=== PATIENT | male | born 1955 | race Caucasian/White ===

== ENCOUNTER 2018-08-20 16:38 | Inpatient (IN) | payer OTHER ==
--- NOTE | 2018-08-20 17:13 | PDOC ---
Rapid Medical Evaluation Chief Complaint: Cold Symptoms Time Seen by Provider: 08/20/18 17:07 Medical Evaluation: Allergies Allergy/AdvReac Type Severity Reaction Status Date / Time azithromycin AdvReac Verified 08/20/18 17:08 08/20/18 17:08 I have performed a brief in-person evaluation of this patient. The patient presents with a chief complaint of: cough with low grade fevers , + chemo and radiation for lung cancer Pertinent physical exam findings: moist cough, some scatterd wheezing I have ordered the following: CXR , cbc, cmp, Influenza test The patient will proceed to the ED for further evaluation. 08/20/18 17:10 08/20/18 17:13 Discharge Disposition - Diagnosis Cough - Referrals Referrals: Mayco Adkins MD [Primary Care Provider] - - Patient Instructions - Post Discharge Activity
[2018-08-20 18:16] LABS: BASO % 0.3 % (0-2.0); HEMATOCRIT 25.3 % (35.4-49); HEMOGLOBIN 8.8 GM/dL (11.7-16.9); LYMPH % 2.6 % (8-40); MCH 31.3 pg (25.7-33.7); MCHC 34.8 g/dl (32.0-35.9); MEAN CELL VOLUME 89.9 fl (80-96); MEAN PLT VOLUME 8.9 fl (7.5-11.1); MONO % 6.4 % (3.8-10.2); NEUT % 90.7 % (42.8-82.8); PLATELET COUNT 99 K/MM3 (134-434); RBC 2.81 M/mm3 (4.00-5.60); WHITE BLOOD COUNT 7.4 K/mm3 (4.0-10.0)
[2018-08-20 18:18] LABS: VENOUS PC02 45.7 mmHg (38-52); VENOUS PH 7.43 (7.32-7.42)
[2018-08-20 18:19] LABS: VENOUS PO2 59.8 mmHg (28-48)
[2018-08-20] MEDS ORDERED: ACETAMINOPHEN 1000 MG/100 ML VIAL (NON FORMULARY) IVPB ONE (18:21)
[2018-08-20] MEDS ORDERED: VANCOMYCIN 1,000 MG in DEXTROSE 5%-WATER - 250 ML IVPB ONE (18:24)
[2018-08-20] MEDS ORDERED: PIPERACILLIN/TAZOB 3.375 GM 3.375 GM in DEXTROSE 5%-WATER - 50 ML IVPB ONE (18:24)
[2018-08-20] MEDS ORDERED: LACTATED RINGERS SOLUTION 1000 ML INFUS.BAG IV ONE (18:29)
[2018-08-20 18:56] LABS: ALBUMIN 3.1 g/dl (3.4-5.0); ALK PHOS 73 U/L (45-117); ANION GAP 9 MMOL/L (8-16); BILIRUBIN,TOTAL 0.4 mg/dL (0.2-1); BLOOD UREA NITROGEN 22 mg/dL (7-18); CALCIUM 8.2 mg/dL (8.5-10.1); CHLORIDE 91 mmol/L (98-107); CO2 28 mmol/L (21-32); GLUCOSE,RANDOM 200 mg/dL (74-106); POTASSIUM 4.9 mmol/L (3.5-5.1); SGOT/AST 25 U/L (15-37); SGPT/ALT 16 U/L (13-61); SODIUM 128 mmol/L (136-145); TOT PROT 6.2 g/dl (6.4-8.2)
[2018-08-20 19:02] LABS: INR 1.21 (0.83-1.09); PROTHROMBIN TIME (PATIENT) 14.3 SEC (9.7-13.0)
[2018-08-20 19:04] LABS: ACTIVATED PTT 28.7 SECONDS (25.2-36.5)
--- NOTE | 2018-08-20 19:08 | PDOC ---
History of Present Illness - General Chief Complaint: Cold Symptoms Stated Complaint: TROUBLE BREATHING Time Seen by Provider: 08/20/18 17:07 History Source: Patient, Spouse Exam Limitations: No Limitations - History of Present Illness Initial Comments: 08/20/18 19:05 Pt is a 63yo M with PMH of kidney ca, lung ca, thyroid ca, mediastinal mass, DM , HTN presenting to ED with complaints of SOB, hemoptysis that started today. Pt says he was coughing up yellow phlegm but is now red clots. He denies chest pain, headaches, syncope, lightheadedness, abdominal pain, n/v/d, blood in stool , urinary symptoms. He endorses weakness. He has been getting radiation daily and chemotherapy for his mediastinal mass every 21 days. He has only received 2 treatments because his platelets were found to be low. PMD: Lucille Onc: Kaelyn ([facility]) PMH: see hpi PSH: kidney resection, valve replacement Social: smoked 1ppd quit 1 year ago Allergies: azithromycin (rash) Past History - Past Medical History Allergies/Adverse Reactions: Allergies Allergy/AdvReac Type Severity Reaction Status Date / Time azithromycin AdvReac Verified 08/20/18 17:08 Home Medications: Ambulatory Orders Lisinopril [Prinivil] 10 mg PO DAILY 04/15/16 Metformin HCl [Glucophage] 1,000 mg PO BID 04/15/16 Multivitamins [Multivit ([facility] Formulary)] 1 tab PO DAILY 04/15/16 Aspirin [Aspirin EC] 81 mg PO DAILY #0 04/18/16 Glipizide [Glipizide ER] 5 mg PO DAILY 06/20/18 Methadone 110 mg PO DAILY 06/20/18 Simvastatin 40 mg PO HS 06/20/18 Albuterol 2.5/Ipratropium 0.5 [Duoneb -] 1 amp NEB Q4H PRN #25 vial 06/25/18 Albuterol Sulfate Inhaler - [Ventolin HFA Inhaler -] 2 puff IH Q4H PRN #1 inh Nebulizer [Compact Compressor Nebulizer] 1 each NR ASDIR PRN #1 kit 06/25/18 Polyethylene Glycol 3350 [Miralax 119 gm Btl -] 17 gm PO BID bottle 06/25/18 Anemia: Yes Asthma: No Cancer: Yes (Lung, kidney, lymph nodes) CVA: Yes (2010) COPD: No DVT: No Dementia: No Diabetes: Yes GI Disorders: No Disorders: No HTN: Yes Hypercholesterolemia: No Liver Disease: No Seizures: No Thyroid Disease: No - Surgical History Abdominal Surgery: No Appendectomy: No Cardiac Surgery: Yes (heart valve replaced) Cholecystectomy: No Lung Surgery: Yes (part of lung removed due to cancer) Orthopedic Surgery: No - Suicide/Smoking/Psychosocial Hx Smoking History: Former smoker Have you smoked in the past 12 months: No Number of Cigarettes Smoked Daily: 20 If you are a former smoker, when did you quit?: 06/19/2018 Information on smoking cessation initiated: No 'Breaking Loose' booklet given: 06/20/18 Hx Alcohol Use: No Drug/Substance Use Hx: 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 No: Chills, Fever HEENTM: No: Recent change in vision Respiratory: Yes: See HPI, Cough, Shortness of Breath, Hemoptysis Cardiac (ROS): Yes: See HPI. No: Chest Pain, Palpitations, Syncope ABD/GI: Yes: Constipated. No: Diarrhea, Nausea, Rectal Bleeding, Vomiting, Tarry Stools : No: Burning, Dysuria Musculoskeletal: No: Back Pain, Joint Pain, Neck Pain Integumentary: No: Symptoms Reported Neurological: No: Headache, Numbness, Tingling *Physical Exam - Vital Signs Last Vital Signs Temp Pulse Resp BP Pulse Ox 102.4 F H 99 H 18 128/74 94 L 08/20/18 17:11 08/20/18 17:11 08/20/18 17:11 08/20/18 17:11 08/20/18 17:11 - Physical Exam General Appearance: Yes: Appropriately Dressed, Thin. No: Apparent Distress HEENT: positive: EOMI, FRANCK, TMs Normal. negative: Pale Conjunctivae, Scleral Icterus (R), Scleral Icterus (L) Neck: positive: Trachea midline, Supple. negative: Lymphadenopathy (R), Lymphadenopathy (L) Respiratory/Chest: positive: Crackles (lower lung bases). negative: Lungs Clear , Accessory Muscle Use Cardiovascular: positive: Regular Rhythm, Regular Rate, S1, S2. negative: Edema , JVD, Murmur Vascular Pulses: Carotid (R): 2+, Carotid (L): 2+, Dorsalis-Pedis (R): 2+, Doralis-Pedis (L): 2+ Gastrointestinal/Abdominal: positive: Normal Bowel Sounds, Soft. negative: Distended, Guarding, Rebound, Tenderness, Mass Musculoskeletal: negative: CVA Tenderness Extremity: positive: Normal Capillary Refill. negative: Pedal Edema, Swelling, Calf Tenderness Integumentary: positive: Normal Color, Dry, Warm. negative: Cyanotic, Erythema , Rash, Swelling Neurologic: positive: herpetologist II-XII NML intact, Fully Oriented, Alert, Normal Mood/ Affect, Normal Response, Motor Strength 5/5 Moderate Sedation - Procedure Monitoring Vital Signs: Procedure Monitoring Vital Signs Temperature 102.4 F H 08/20/18 17:11 Pulse Rate 99 H 08/20/18 17:11 Respiratory Rate 18 08/20/18 17:11 Blood Pressure 128/74 08/20/18 17:11 O2 Sat by Pulse Oximetry (%) 94 L 08/20/18 17:11 ED Treatment Course - LABORATORY CBC & Chemistry Diagram: 08/20/18 18:07 08/20/18 18:07 - ADDITIONAL ORDERS Additional order review: Laboratory Results 08/20/18 08/20/18 08/20/18 18:07 18:07 18:07 PT with INR INR VBG pH POC VBG pCO2 POC VBG pO2 Mixed VBG HCO3 Sodium 128 L Potassium 4.9 Chloride 91 L Carbon Dioxide 28 Anion Gap 9 BUN 22 H Creatinine 1.0 Creat Clearance w eGFR > 60 Random Glucose 200 H Lactic Acid 1.1 Calcium 8.2 L Total Bilirubin 0.4 AST 25 ALT 16 Alkaline Phosphatase 73 Troponin I 0.03 Total Protein 6.2 L Albumin 3.1 L 08/20/18 08/20/18 18:07 18:07 PT with INR 14.30 H INR 1.21 H VBG pH 7.43 H POC VBG pCO2 45.7 POC VBG pO2 59.8 H D Mixed VBG HCO3 30.1 H Sodium Potassium Chloride Carbon Dioxide Anion Gap BUN Creatinine Creat Clearance w eGFR Random Glucose Lactic Acid Calcium Total Bilirubin AST ALT Alkaline Phosphatase Troponin I Total Protein Albumin 08/20/18 18:07 RBC 2.81 L MCV 89.9 MCHC 34.8 RDW 19.0 H MPV 8.9 D Neutrophils % 90.7 H Lymphocytes % 2.6 L D Monocytes % 6.4 Eosinophils % 0.0 Basophils % 0.3 - RADIOLOGY Radiology Studies Ordered: Category Date Time Status CHEST X-RAY PORTABLE* [RAD] Stat Radiology 08/20/18 17:25 Taken Medical Decision Making - Medical Decision Making 08/20/18 23:21 Pt is a 63yo M with PMH of kidney ca, lung ca, thyroid ca, mediastinal mass, DM , HTN presenting to ED with complaints of SOB, hemoptysis that started today. Vitals: borderline tachycardia, fever 102.4, 94% PE: crackles in lower lung alfaro, no masses palpated, no rashes, no erythema , DDx: neutropenic fever, pna, TB, PE, acs, pneumonitis, carditis, CHF, COPD -low suspicion for pe given sypmtoms explained by infectious cause. Ran sepsis workup and started pt on abx (vanc and zosyn). Started pt on fluids and IV Tylenol. EKG: LBBB, no baldomero elevations or depressions CXR: R lower lobe infiltrate Labs: WBC wnl, neutrophil wnl, NA low 128. UA negative Consulted pt oncologist and is ok with pt being admitted here. will resume radiation once pt is discharged. Pt admitted to hospitalist. *DC/Admit/Observation/Transfer Diagnosis at time of Disposition: PNA (pneumonia) Qualifiers: Pneumonia type: due to unspecified organism Laterality: right Lung location: lower lobe of lung Qualified Code(s): J18.1 - Lobar pneumonia, unspecified organism - Discharge Dispostion Condition at time of disposition: Good Decision to Admit order: Yes - Referrals - Patient Instructions - Post Discharge Activity
[2018-08-20] MEDS ORDERED: VANCOMYCIN 1 GRAM (PRE-DOCKED) 1,000 MG/250 ML BAG IVPB ONE (19:24)
[2018-08-20] MEDS ORDERED: PIPERACILLIN/TAZOB 3.375 GM 3.375 GM/50 ML BAG IVPB ONE ×2 (19:24→20:33)
[2018-08-20] MEDS ORDERED: ACETAMINOPHEN INJECTION 100 ML IVPB ONE (19:24)
[2018-08-20] MEDS ORDERED: SODIUM CHLORIDE 1,000 ML IV STA (19:41)
--- NOTE | 2018-08-20 19:50 | PDOC ---
Attending Attestation - HPI HPI: 08/20/18 19:50 The patient is a 63 year old male with a significant PMH of lung ca (on chemo and radiation), diabetes, hypertension, and COPD who presents to the emergency department with difficulty breathing abd associated nonproductive cough. Patient also reports low grade fevers at home. The patient denies any chest pain, leg swelling or recent travel. Denies any chills, nausea, vomiting, diarrhea, constipation or urinary symptoms. He denies any headache or dizziness. Denies leg swelling, no recent travel/ immobilization. PCP: Dr. Key Oncologist Dr. Art [phone] Pabon [phone] - Physicial Exam PE: 08/20/18 19:51 GENERAL: Awake, alert, and fully oriented, in no acute distress, febrile HEAD: No signs of trauma NECK: Normal ROM, supple. LUNGS: crackles on the right base. HEART: (+) Tachycardic. Regular rhythm, normal S1 and S2, no murmurs, rubs or gallops ABDOMEN: Soft, nontender, normoactive bowel sounds. No guarding, no rebound. No masses EXTREMITIES: Normal range of motion, no edema. No clubbing or cyanosis. No cords, erythema, or tenderness NEUROLOGICAL: Cranial nerves II through XII grossly intact. Ambulatory. <Zaria Marmolejo - Last Filed: 08/20/18 19:50> - Resident Resident Name: Keke Saucedo - ED Attending Attestation I have performed the following: I have examined & evaluated the patient, The case was reviewed & discussed with the resident, I agree w/resident's findings & plan, Exceptions are as noted - Medical Decision Making 08/20/18 20:58 pt presented with 102.4 oral temperature and sepsis work up initiated pt has PMH lung ,renal ,thyroid and cancer of lymph nodes -currently receiving radiation tx to chest . In Nov his platelet count was too low so he skipped his chemotherapy -his education dean and radiation therapy are at [facility] -he is febrile but NOT neutropenic -cxr reveals a rt sided infiltrate so antibiotics were given and pt admitted for further IV antibiotics and supplemental o2 if needed pt admitted to med/surg 08/20/18 21:03 <Brionna York - Last Filed: 08/20/18 21:04>
--- NOTE | 2018-08-20 19:59 | PN ---
Teaching Attending Note Name of Resident: Eron Capps ATTENDING PHYSICIAN STATEMENT I saw and evaluated the patient. I reviewed the resident's note and discussed the case with the resident. I agree with the resident's findings and plan as documented. SUBJECTIVE: Patient is a 63 year old man with PMH of kidney cancer (?s/p nephrectomy), lung cancer (?s/p lobectomy), thyroid cancer, systolic CHF, severe , opioid dependence, mediastinal mass, NIDDM, HTN and TAVR presenting to ER with complaints of SOB, hemoptysis that started today. Says he was coughing up yellow phlegm but is now red clots. He denies chest pain, headaches, syncope, lightheadedness, abdominal pain, n/v/d, blood in stool or urinary symptoms. He has weakness. He has been getting radiation daily and chemotherapy for his mediastinal mass every 21 days. He has only received 2 treatments because his platelets were found to be low. OBJECTIVE: Alert Vital Signs Period Temp Pulse Resp BP Sys/Nicholas Pulse Ox Last 24 Hr 102.4 F 99 18 128/74 94 HEENT: No Jaundice, eye redness or discharge, PERRLA, EOMI. Normocephalic, atraumatic. External ears are normal and hearing is grossly intact. No nasal discharge. Neck: Supple, nontender. No palpable adenopathy or thyromegaly. No JVD Chest: Good effort. Right basilar crackles. Clear to percussion. Heart: Regular. No S3 or rub; 2/6 KELLIE Abdomen: Not distended, soft, nontender and no HSM. No rebound or guarding. Normoactive bowel sounds. Ext: Peripheral pulses intact. No leg edema. Skin: Warm and dry. No petechiae, rash or ecchymosis. Neuro: Alert. Oriented x3. CN 2-12 grossly intact. Sensation grossly intact in all four extremities and DTR are symmetric. Current Medications Generic Name Dose Route Start Last Admin Trade Name Freq PRN Reason Stop Dose Admin Sodium Chloride 1,000 mls @ 1,000 mls/hr 08/20/18 19:41 Normal Saline - IV 08/20/18 20:40 ASDIR STA Home Medications Medication Instructions Recorded Lisinopril [Prinivil] 10 mg PO DAILY 04/15/16 Metformin HCl [Glucophage] 1,000 mg PO BID 04/15/16 Multivitamins [Multivit ([facility] 1 tab PO DAILY 04/15/16 Formulary)] Aspirin [Aspirin EC] 81 mg PO DAILY #0 04/18/16 Glipizide [Glipizide ER] 5 mg PO DAILY 06/20/18 Methadone 110 mg PO DAILY 06/20/18 Simvastatin 40 mg PO HS 06/20/18 Sitagliptin Phosphate [Januvia] 50 mg PO DAILY 06/20/18 Albuterol 2.5/Ipratropium 0.5 1 amp NEB Q4H PRN #25 vial 06/25/18 [Duoneb -] Albuterol Sulfate Inhaler - 2 puff IH Q4H PRN #1 inh 06/25/18 [Ventolin HFA Inhaler -] Nebulizer [Compact Compressor 1 each NR ASDIR PRN #1 kit 06/25/18 Nebulizer] Nystatin Oral Suspension - 5 ml PO QID #400 ml 06/25/18 [Nystatin Oral Susp 031766 Units/5 ML -] Polyethylene Glycol 3350 [Miralax 17 gm PO BID bottle 06/25/18 119 gm Btl -] Prednisone 10 mg PO ASDIR #16 tablet 06/25/18 Abnormal Lab Results 08/20/18 08/20/18 08/20/18 18:07 18:07 18:07 RBC 2.81 L Hgb 8.8 L Hct 25.3 L D RDW 19.0 H Plt Count 99 L D Neutrophils % 90.7 H Lymphocytes % 2.6 L D PT with INR 14.30 H INR 1.21 H VBG pH 7.43 H POC VBG pO2 59.8 H D Mixed VBG HCO3 30.1 H Sodium Chloride BUN Random Glucose Calcium Total Protein Albumin 08/20/18 18:07 RBC Hgb Hct RDW Plt Count Neutrophils % Lymphocytes % PT with INR INR VBG pH POC VBG pO2 Mixed VBG HCO3 Sodium 128 L Chloride 91 L BUN 22 H Random Glucose 200 H Calcium 8.2 L Total Protein 6.2 L Albumin 3.1 L ASSESSMENT AND PLAN: 1. Sepsis due to Pneumonia - CXR shows RLL infiltrate. Flu swab is negative. Will check urine legionella antigen. Has HCAP and will be treated with IV vancomycin, cefepime, doxycycline and solumedrol. Already got 1 liter LR and will avoid excessive IV fluids in view of history of poor LV function. Hyponatremia likely due SIADH from lung disease and hyperglycemia. Will restrict free water intake, correct hyperglycemia and monitor BMP. 2. Hypoalbuminemia - Possibly due to combined effects of malnutrition and inflammation associated with comorbid chronic conditions. Will ensure adequate dietary protein intake and also consult aircraft maintenance technician. 3. DM - Will hold the home diabetes drugs and implement sliding scale insulin regimen. Provide comprehensive diabetes care with patient teaching and counseling about the importance of euglycemia, eye care and foot care. 4. Anemia and Thrombocytopenia - Both likely due to effects of cancer and/or cancer therapy. Will do basic anemia work up including serial stool guaiacs, reticulocyte count and iron studies. Monitor platelet count. 5. DVT prophylaxis - Lovenox 40 mg SQ q 24 hours. 6. Advance directives - Full code
[2018-08-20 20:54] LABS: URINE APPEARANCE CLEAR; URINE BILIRUBIN NEGATIVE (<2.0 mg/dL); URINE COLOR YELLOW; URINE GLUCOSE (UA) NEGATIVE (NEGATIVE); URINE KETONE NEGATIVE (NEGATIVE); URINE LEUK ESTERASE NEGATIVE (NEGATIVE); URINE NITRITE NEGATIVE (NEGATIVE); URINE PROTEIN 1+ (NEGATIVE); URINE UROBILINOGEN 4.0 E.U/dl mg/dL (0.2-1.0)
[2018-08-20 21:11] LABS: EPI CELLS RARE /HPF (FEW)
--- NOTE | 2018-08-20 21:51 | HP ---
CHIEF COMPLAINT: SOB, cough with blood tinged sputum PCP: Lucille Onc: Kaelyn ([facility]) HISTORY OF PRESENT ILLNESS: 63 yo male with PMH Kidney CA, Lung CA, Thyroid CA, Recent Mediastinal mass ( Daily radiation therapy 7 weeks and Chemo Q21 days), NIDDM, HTN, HLD, CVA (2010) , Severe Aortic Stenosis, admitted with complaint of fevers, chills, SOB, and cough productive of yellow and blood tinged sputum. He states he has been having symptoms for 2 days. He was able to complete radiation today but states he noted the sputum with blood following and wanted to come for evaluation. Of note he was admitted 2 months ago for pneumonia with similar symptoms. Of note, he states that his most recent chemo dose was due on the (5 days ago) but was not given due to low platelet count. ER course was notable for: (1) CXR noted RLL infiltrate (2) Vanc/Zosyn (3) HypoNatremia 128 Recent Travel: none PAST MEDICAL HISTORY: Kidney CA, Lung CA, Thyroid CA, Recent Mediastinal mass (Daily radiation therapy 7 weeks and Chemo Q21 days), NIDDM, HTN, HLD, CVA (2010), Severe Aortic Stenosis PAST SURGICAL HISTORY: Left Kidney resection Partial lung resection Cardiac Valve replacement Social History: Smoking: Former smoker, ppd for 45 yrs Alcohol: Denies Drugs: Denies Family History: Allergies azithromycin Adverse Reaction (Verified 08/20/18 17:08) HOME MEDICATIONS: Home Medications Medication Instructions Recorded Lisinopril [Prinivil] 10 mg PO DAILY 04/15/16 Metformin HCl [Glucophage] 1,000 mg PO BID 04/15/16 Multivitamins [Multivit ([facility] 1 tab PO DAILY 04/15/16 Formulary)] Aspirin [Aspirin EC] 81 mg PO DAILY #0 04/18/16 Glipizide [Glipizide ER] 5 mg PO DAILY 06/20/18 Methadone 110 mg PO DAILY 06/20/18 Simvastatin 40 mg PO HS 06/20/18 Sitagliptin Phosphate [Januvia] 50 mg PO DAILY 06/20/18 Albuterol 2.5/Ipratropium 0.5 1 amp NEB Q4H PRN #25 vial 06/25/18 [Duoneb -] Albuterol Sulfate Inhaler - 2 puff IH Q4H PRN #1 inh 06/25/18 [Ventolin HFA Inhaler -] Nebulizer [Compact Compressor 1 each NR ASDIR PRN #1 kit 06/25/18 Nebulizer] Nystatin Oral Suspension - 5 ml PO QID #400 ml 06/25/18 [Nystatin Oral Susp 393038 Units/5 ML -] Polyethylene Glycol 3350 [Miralax 17 gm PO BID bottle 06/25/18 119 gm Btl -] Prednisone 10 mg PO ASDIR #16 tablet 06/25/18 REVIEW OF SYSTEMS CONSTITUTIONAL: fever, chills, diaphoresis, generalized weakness, Absent: malaise, loss of appetite, weight change HEENT: Absent: rhinorrhea, nasal congestion, throat pain, throat swelling, difficulty swallowing, mouth swelling, ear pain, eye pain, visual changes CARDIOVASCULAR: Absent: chest pain, syncope, palpitations, irregular heart rate, lightheadedness , peripheral edema RESPIRATORY: cough, shortness of breath Absent: , dyspnea with exertion, orthopnea, wheezing, stridor, hemoptysis GASTROINTESTINAL: Absent: abdominal pain, abdominal distension, nausea, vomiting, diarrhea, constipation, melena, hematochezia GENITOURINARY: Absent: dysuria, frequency, urgency, hesitancy, hematuria, flank pain, genital pain MUSCULOSKELETAL: Absent: myalgia, arthralgia, joint swelling, back pain, neck pain SKIN: Absent: rash, itching, pallor HEMATOLOGIC/IMMUNOLOGIC: Absent: easy bleeding, easy bruising, lymphadenopathy, frequent infections ENDOCRINE: Absent: unexplained weight gain, unexplained weight loss, heat intolerance, cold intolerance NEUROLOGIC: Absent: headache, focal weakness or paresthesias, dizziness, unsteady gait, seizure, mental status changes, bladder or bowel incontinence PSYCHIATRIC: Absent: anxiety, depression, suicidal or homicidal ideation, hallucinations. PHYSICAL EXAMINATION Vital Signs - 24 hr 08/20/18 17:11 Temperature 102.4 F H Pulse Rate 99 H Respiratory 18 Rate Blood Pressure 128/74 O2 Sat by Pulse 94 L Oximetry (%) GENERAL: A&O, no acute distress, diaphoretic male HEAD: Normocephalic, atraumatic. EYES: PERRL, no scleral icterus EARS, NOSE, THROAT: oropharynx clear without exudates. Moist mucous membranes. NECK: supple without lymphadenopathy LUNGS: Course breath sounds in the right base HEART: Regular rate and rhythm, Systolic blowing murmur at right sternal border ABDOMEN: Soft, nontender to palpation, normoactive bowel sounds MUSCULOSKELETAL: No bony deformities or tenderness. EXTREMITIES: 2+ pulses, warm, well-perfused. No peripheral edema. NEUROLOGICAL: Cranial nerves II-XII grossly intact. Normal speech. PSYCHIATRIC: Cooperative. Good eye contact. Appropriate mood and affect. SKIN: Warm, dry, no rashes or lesions noted Laboratory Results - last 24 hr 08/20/18 08/20/18 08/20/18 17:15 18:07 18:07 WBC 7.4 RBC 2.81 L Hgb 8.8 L Hct 25.3 L D MCV 89.9 MCH 31.3 D MCHC 34.8 RDW 19.0 H Plt Count 99 L D MPV 8.9 D Absolute Neuts (auto) 6.7 Neutrophils % 90.7 H Lymphocytes % 2.6 L D Monocytes % 6.4 Eosinophils % 0.0 Basophils % 0.3 Nucleated RBC % 0 PT with INR 14.30 H INR 1.21 H PTT (Actin FS) 28.7 VBG pH POC VBG pCO2 POC VBG pO2 Mixed VBG HCO3 Sodium Potassium Chloride Carbon Dioxide Anion Gap BUN Creatinine Creat Clearance w eGFR Random Glucose Lactic Acid Calcium Total Bilirubin AST ALT Alkaline Phosphatase Troponin I Total Protein Albumin Urine Color Urine Appearance Urine pH Ur Specific [place] Urine Protein Urine Glucose (UA) Urine Ketones Urine Blood Urine Nitrite Urine Bilirubin Urine Urobilinogen Ur Leukocyte Esterase Urine WBC (Auto) Urine RBC (Auto) Ur Epithelial Cells Influenza A (Rapid) Negative Influenza B (Rapid) Negative 08/20/18 08/20/18 08/20/18 18:07 18:07 18:07 WBC RBC Hgb Hct MCV MCH MCHC RDW Plt Count MPV Absolute Neuts (auto) Neutrophils % Lymphocytes % Monocytes % Eosinophils % Basophils % Nucleated RBC % PT with INR INR PTT (Actin FS) VBG pH 7.43 H POC VBG pCO2 45.7 POC VBG pO2 59.8 H D Mixed VBG HCO3 30.1 H Sodium 128 L Potassium 4.9 Chloride 91 L Carbon Dioxide 28 Anion Gap 9 BUN 22 H Creatinine 1.0 Creat Clearance w eGFR > 60 Random Glucose 200 H Lactic Acid 1.1 Calcium 8.2 L Total Bilirubin 0.4 AST 25 ALT 16 Alkaline Phosphatase 73 Troponin I Total Protein 6.2 L Albumin 3.1 L Urine Color Urine Appearance Urine pH Ur Specific [place] Urine Protein Urine Glucose (UA) Urine Ketones Urine Blood Urine Nitrite Urine Bilirubin Urine Urobilinogen Ur Leukocyte Esterase Urine WBC (Auto) Urine RBC (Auto) Ur Epithelial Cells Influenza A (Rapid) Influenza B (Rapid) 08/20/18 08/20/18 18:07 20:39 WBC RBC Hgb Hct MCV MCH MCHC RDW Plt Count MPV Absolute Neuts (auto) Neutrophils % Lymphocytes % Monocytes % Eosinophils % Basophils % Nucleated RBC % PT with INR INR PTT (Actin FS) VBG pH POC VBG pCO2 POC VBG pO2 Mixed VBG HCO3 Sodium Potassium Chloride Carbon Dioxide Anion Gap BUN Creatinine Creat Clearance w eGFR Random Glucose Lactic Acid Calcium Total Bilirubin AST ALT Alkaline Phosphatase Troponin I 0.03 Total Protein Albumin Urine Color Yellow Urine Appearance Clear Urine pH 6.0 Ur Specific [place] 1.013 Urine Protein 1+ H Urine Glucose (UA) Negative Urine Ketones Negative Urine Blood Negative Urine Nitrite Negative Urine Bilirubin Negative Urine Urobilinogen 4.0 e.u/dl Ur Leukocyte Esterase Negative Urine WBC (Auto) 1 Urine RBC (Auto) None Ur Epithelial Cells Rare Influenza A (Rapid) Influenza B (Rapid) ASSESSMENT/PLAN: 63 yo male with PMH Kidney CA, Lung CA, Thyroid CA, Recent Mediastinal mass ( Daily radiation therapy 7 weeks and Chemo Q21 days), NIDDM, HTN, HLD, CVA (2010) , Severe Aortic Stenosis, admitted with complaint of fevers, chills, SOB, and cough productive of yellow and blood tinged sputum. Sepsis secondary to RLL pneumonia likely HCAP -Pt with IV abx in the hospital within last 3 months -Immunocompromised also due to Cancer and Chemotherapy tx -Will cover for HCAP in addition to atypicals, azythromycin allergy noted ( flushing on last administration) -ID consult ordered -Vanc 1250 mg IV BID, Cefepime 2 gm IV Q8, Doxy 100 mg IV BID -Minimal fluids with hyponatremia and recent echo noted (LV mildly dilated with fxn reduced, severe ) HypoNatremia -Likely secondary to decreased PO intake over the last few days -Limit free water intake -Pt given fluids in ED -Repeat CMP pending -Do not increase more than 8 in 24 hours Anemia -Possibly secondary to chemo use, has not had formal workup here -H/H down 2 from previous discharge 2 months ago -Repeat CBC in AM -Iron Studies -Stool occult pending NIDDM -Hold oral glycemic control -BGMs ACHS -Insulin Sliding scale ACHS HTN -Continue home Lisinopril 10 mg PO Daily HLD -resume home statin or pharmacy equivalent DVT Prophylaxis -Lovenox 40 mg SQ Daily FEN -Fluids: NS @ 50 cc/hr X 1 bag -Electrolytes: HypoNatremia as above, monitor and replete appropriately, BMP in AM -Nutrition: Diabetic Na controlled diet Disposition Med/Surg Visit type - Emergency Visit Emergency Visit: Yes ED Registration Date: 08/20/18 Care time: The patient presented to the Emergency Department on the above date and was hospitalized for further evaluation of their emergent condition. - New Patient This patient is new to me today: Yes Date on this admission: 08/21/18 - Critical Care Critical Care patient: No
[2018-08-20] MEDS ORDERED: methylPREDNISolone NA SUCC 40 MG/1 ML VIAL ONE (22:03)
[2018-08-20] MEDS ORDERED: DOXYCYCLINE HYCLATE 100 MG VIAL ONE (22:03)
[2018-08-20] MEDS: SODIUM CHLORIDE 1,000 ML IV SCH (22:15)
[2018-08-20] MEDS: methylPREDNISolone NA SUCC 40 MG/1 ML VIAL IVPUSH SCH (22:20)
[2018-08-20] MEDS ORDERED: ALBUTEROL SO4 8 GM HFA INHALER IH PRN (22:22)
[2018-08-20] MEDS ORDERED: ALBUTEROL SO4 2.5/IPRATROPIUM 0.5 INH SOL 3 ML VIAL.NEB. NEB PRN (22:22)
[2018-08-20] MEDS ORDERED: POLYETHYLENE GLYCOL 3350 119 GM BTL PO PRN (22:22)
[2018-08-20] MEDS ORDERED: INSULIN (NOVOLOG) ASPART 100 UNITS/ML 10ML VIAL ONE (22:31)
[2018-08-20] MEDS: DOXYCYCLINE INJECTION 100 MG in DEXTROSE 5%-WATER 100 ML IVPB SCH (22:35)
[2018-08-20] MEDS: INSULIN SLIDING SCALE (NOVOLOG) 1 VIAL SQ SCH (22:35)
[2018-08-21] MEDS ORDERED: QUEtiapine FUMARATE 25 MG TABLET (FP) PO ONE (00:52)
[2018-08-21] MEDS ORDERED: CEFEPIME 2 GM/100 ML BAG IVPB ONE (01:36)
[2018-08-21] MEDS ORDERED: QUEtiapine FUMARATE 25 MG TABLET (FP) ONE (01:40)
[2018-08-21] MEDS: CEFEPIME 2 GM in DEXTROSE 5%-WATER 100 ML IVPB SCH ×2 (02:30→10:41)
[2018-08-21 06:25] LABS: BASO % 0.2 % (0-2.0); HEMOGLOBIN 7.7 GM/dL (11.7-16.9); LYMPH % 2.9 % (8-40); MCH 29.5 pg (25.7-33.7); MEAN CELL VOLUME 92.2 fl (80-96); MEAN PLT VOLUME 7.7 fl (7.5-11.1); MONO % 3.3 % (3.8-10.2); NEUT % 93.6 % (42.8-82.8); PLATELET COUNT 70 K/MM3 (134-434); RDW 18.2 % (11.9-15.9)
[2018-08-21 07:25] LABS: ANION GAP 7 MMOL/L (8-16); BLOOD UREA NITROGEN 23 mg/dL (7-18); CHLORIDE 97 mmol/L (98-107); CO2 30 mmol/L (21-32); CREATININE 0.9 mg/dL (0.55-1.3); GLUCOSE,RANDOM 166 mg/dL (74-106); MAGNESIUM 2.2 mg/dL (1.8-2.4); PHOSPHOROUS 3.1 mg/dL (2.5-4.9); POTASSIUM 4.9 mmol/L (3.5-5.1); SODIUM 134 mmol/L (136-145)
[2018-08-21] MEDS ORDERED: VANCOMYCIN 1,250 MG in DEXTROSE 5%-WATER - 250 ML IVPB SCH ×2 (09:00→21:00)
[2018-08-21] MEDS ORDERED: ENOXAPARIN NA (PORCINE) 40 MG/0.4 ML DISP.SYRIN SQ SCH (10:00)
[2018-08-21] MEDS ORDERED: LISINOPRIL 10 MG TABLET (FP) PO SCH (10:00)
[2018-08-21] MEDS ORDERED: ASPIRIN COATED 81 MG TABLET.EC PO SCH (10:00)
--- NOTE | 2018-08-21 10:24 | PN ---
Progress Note (short form) - Note Progress Note: ID Consult dictated RLL pneumonia R/O HCAP Lung ca s/p chemo/ RT ? cavitary RUL lesion Await c/s Empiric cefepime/ vancomycin
[2018-08-21] MEDS ORDERED: PNEUMOC 13-VAL CONJ-DIP CRM/PF 0.5 ML DISP.SYRIN IM ONE (10:30)
[2018-08-21] MEDS ORDERED: PT OWN MED DRAWER 7, Y5N ONE ×2 (10:36→17:36)
[2018-08-21] MEDS: methylPREDNISolone NA SUCC 40 MG/1 ML VIAL IVPUSH SCH (10:39)
[2018-08-21] MEDS: MULTIVITAMINS (DAILY MVI) TABLET (FP) PO SCH (10:40)
[2018-08-21] MEDS: METHADONE HCL 40 MG DISPERSABLE TABLET PO SCH (10:40)
[2018-08-21] MEDS: INSULIN SLIDING SCALE (NOVOLOG) 1 VIAL SQ SCH ×3 (10:41→17:26)
[2018-08-21 10:55] LABS: RETICULOCYTES 1.72 % (0.5-1.5)
--- NOTE | 2018-08-21 10:56 | CONS ---
DATE OF CONSULTATION: DATE OF DICTATION: 08/21/2017 The patient is a 63-year-old male with a history of lung cancer status post chemotherapy and radiation, evaluated for pneumonia. He presents to the hospital with a several-day history of worsening shortness of breath, cough productive of brownish sputum, blood-streaked sputum, fever, and chills. Patient does not give a reliable history. He presented to the emergency room where he was noted to have fever 102.4. Chest x-ray showed a right lower lobe infiltrate. He was empirically treated with vancomycin and Zosyn. Patient denies any chest pain. He does not appear to be short of breath at rest. He has a history of lung cancer; however, he was vague with respect to the time of his diagnosis. He is followed at [facility]. He apparently had undergone lung surgery, possible lobectomy. He has also received 2 cycles of chemotherapy, the last one of which was on July 25, 2018. He also received radiation therapy. Patient reports that his third session of chemotherapy was postponed due to thrombocytopenia. He lives at home. He states his granddaughter had a respiratory tract illness. He lives with his , who is well. He is a former smoker. No recent trivial. No significant pet exposure. He did receive influenza vaccine and pneumococcal vaccine. On admission, he was noted to be leukopenic; however, he is not neutropenic. PAST MEDICAL HISTORY: Positive for lung cancer status post surgery, chemotherapy, and radiation. History of renal cancer, throat cancer, diabetes mellitus, hypertension, congestive heart failure. PAST SURGICAL HISTORY: Status post TAVR and lung surgery. ALLERGIES: ZITHROMAX. Patient gives a vague sensation of feeling warm when he get Zithromax. According to the notes, he developed a rash. MEDICATIONS: Lisinopril, Glucophage, aspirin, glipizide, methadone, simvastatin. SOCIAL HISTORY: He lives at home with his significant other. He is a former smoker. Denies risk factors for HIV and declines testing. REVIEW OF SYSTEMS: Neurologic: No loss of consciousness, seizure activity, focal weakness. Cardiac: Negative chest pain or palpitations. Respiratory: As per HPI. Gastrointestinal: Negative vomiting or diarrhea. Genitourinary: Negative for urinary tract infection. LABORATORY DATA: White count 4.0, 93 neutrophils. Absolute neutrophil count 3.7, hematocrit 24.0, platelets 70,000. BUN 23, creatinine 0.9. Urinalysis: One white cell. Influenza swab negative. Blood and urine cultures are pending. Chest x-ray shows a right lower lobe infiltrate. CAT scan which was done on August 07, 2018, shows a small cavitary lesion in the right upper lobe. PHYSICAL EXAMINATION: General: On exam, he is awake and alert. He is ambulatory. He is not acutely toxic appearing, in no acute distress. He is not acutely short of breath at rest. Vital Signs: Temperature 98, T-max 102.4. Blood pressure 125/52, pulse 81, regular. Respirations 18 per minute. HEENT: Sclerae are anicteric. Cardiovascular: Heart sounds S1, S2. No murmur. Lungs: Clear. Abdomen: Soft, obese, nontender. Extremities: Negative for edema, negative Homans sign. IMPRESSION: 1. Right lower lobe pneumonia, rule out healthcare-acquired pneumonia. 2. Lung cancer status post chemotherapy and radiation. 3. Fever, rule out non-neutropenic sepsis. 4. Possible cavitary lung lesion, right upper lobe. Await cultures, empiric antibiotic coverage with cefepime and vancomycin. Would repeat CAT scan in light of new infiltrate on chest x-ray and follow up of possible right upper lobe cavitary lesion in the setting of hemoptysis. Will follow. Thank you for the kind referral. SANCHEZ GIBBS M.D. [id number]
[2018-08-21 11:50] LABS: ANISOCYTOSIS 1+; MACROCYTOSIS 1+; OVALOCYTE 1+; PLATELET ESTIMATE DECREASED
[2018-08-21] MEDS ORDERED: CEFEPIME HCL 1 GM VIAL (RESTRICTED TO ID) ONE ×2 (11:50→17:36)
[2018-08-21] MEDS ORDERED: DEXTROSE 5%-WATER 100 ML IVPB ONE ×2 (11:50→17:36)
[2018-08-21] MEDS: VANCOMYCIN 1 GRAM (PRE-DOCKED) 1,000 MG/250 ML BAG IVPB SCH ×2 (11:57→22:13)
[2018-08-21] MEDS: CEFEPIME 1 GM in DEXTROSE 5%-WATER 100 ML IVPB SCH ×2 (11:58→17:53)
[2018-08-21 12:15] VITALS: BMI 29.7
--- NOTE | 2018-08-21 12:43 | PN ---
Teaching Attending Note Name of Resident: Cayden Ross ATTENDING PHYSICIAN STATEMENT I saw and evaluated the patient. I reviewed the resident's note and discussed the case with the resident. I agree with the resident's findings and plan as documented. SUBJECTIVE: he feels better. NO cp at this point. cough and sputum production improved. no abd pain, no diarrhea. was supposed to get chemo 5 days ago and was canceled due to thrombocytopenia . had hemoptysis last night, did not recur. OBJECTIVE: NAD HEENT: dry MM. no facial droop. EOMI. No JVD CV: RRR, 3/s SM at LUSB and RUSB with radiation to carotids Lungs; R base fine crackles Abd: soft, NT, ND , NL Bs Ext : no edema or erythema . no axillary sweating ASSESSMENT AND PLAN: 63 y/o gentleman with h/o Lung cancer s/p R lobecotmy, Lthyroid cancer, and renal cancer s/p L nephrectomy, DM, h/o opioid use on methadone, severe , s/p TVAR, Systolic CHF, Mediastinal mass, currently on chemo and radiation , who presented with fever, cough , and was found ot have RLL PNA 1- RLL PNA: - cxray this admission and CT form last admission reviewed. infiltrate is new. scarring/cavitation in RUL on last CT. - d/w ID - cont cefepime and vanco, and doxy - follow legionella Ag and check mycoplasma Abs - follow blood cx - check sputum cx - IVF - CT of chest 2- Volume depletion: BUN/Cr, no axillary sweating, hyponatremia,fever and decreased po intake. - IVF 3- H/o systolic heart failure: last echo 07/05 reviewed. mildly reduced EF. severe - avoid hypovolemia. - monitor carefully with IVF 4- CP: resolved. not sure of etiology. EKG with L axis , incomplete LBBB, 1st degree AV block . trop nl x 1. no suspicion for ACS. 5- normocytic anemia: likely de to chemo. - follow iron studies and folic/B12 - obtain last HB form PCP office - hemoptysis last night was not significant ( , 1 tea spoon ) . could be due to PNA 6- Thrombocytopenia ; due to chemo. monitor 7- DM : SSI . hold po meds 8- hold DVT PX for now. SCDs dispo : [facility]LOC
--- NOTE | 2018-08-21 13:37 | PN ---
Physical Exam: SUBJECTIVE: Patient is a 63 y/o male with a history of kidney ca, lung ca, thyroid ca, DM, HTN, HLD, CA, and severe aortic stenosis who is admitted for pneumonia. Patient reports he feels like hes coughing up clots. He feels a little bit short of breath but reports he feels better from last night. OBJECTIVE: Vital Signs Temperature 98.0 F 08/21/18 12:02 Pulse Rate 66 08/21/18 12:02 Respiratory Rate 18 08/21/18 12:02 Blood Pressure 128/67 08/21/18 12:02 O2 Sat by Pulse Oximetry (%) 97 08/21/18 07:50 GENERAL: The patient is awake, alert, and fully oriented, in no acute distress. HEAD: Normal with no signs of trauma. EYES: PERRL, extraocular movements intact ENT: moist mucous membranes. NECK: Trachea midline, full range of motion, supple. LUNGS: fine crackles a RLL, coarse breath sounds HEART: Regular rate and rhythm, S1, S2 without murmur, rub or gallop. ABDOMEN: Soft, nontender, nondistended, normoactive bowel sounds EXTREMITIES: 2+ pulses, warm, well-perfused, no edema. NEUROLOGICAL: Cranial nerves II through XII grossly intact. Normal speech gait normal PSYCH: Normal mood, normal affect. SKIN: Warm, dry, normal turgor, no rashes or lesions noted CBC, BMP 08/21/18 05:20 08/21/18 05:20 Active Medications Albuterol Sulfate (Ventolin Hfa Inhaler -) 2 puff IH Q4H PRN PRN Reason: SHORT OF BREATH/WHEEZING Albuterol/Ipratropium (Duoneb -) 1 amp NEB Q4H PRN PRN Reason: SHORT OF BREATH/WHEEZING Atorvastatin Calcium (Lipitor -) 20 mg PO HS KIRA Sodium Chloride (Normal Saline -) 1,000 mls @ 50 mls/hr IV ASDIR KIRA Stop: 08/21/18 21:28 Last Admin: 08/20/18 22:15 Dose: 50 mls/hr Doxycycline Hyclate 100 mg/ (Dextrose) 100 mls @ 100 mls/hr IVPB BID KIRA Last Admin: 08/20/18 22:35 Dose: 100 mls/hr Cefepime HCl 1 gm/ Dextrose 100 mls @ 100 mls/hr IVPB Q8H-IV KIRA; Protocol Last Admin: 08/21/18 11:58 Dose: 100 mls/hr Vancomycin HCl (Vancomycin (Pre-Docked)) 1,000 mg in 250 mls @ 166.667 mls/hr IVPB BID@1100,2300 [facility]; Protocol Last Admin: 08/21/18 11:57 Dose: 166.667 mls/hr Insulin Aspart (Novolog Vial Sliding Scale -) 1 vial SQ TIDAC [facility]; Protocol Last Admin: 08/21/18 12:18 Dose: 4 units Methadone HCl (Dolophine -) 120 mg PO DAILY@0600 [facility] Last Admin: 08/21/18 10:40 Dose: 120 mg Methylprednisolone Sodium Succinate (Solu-Medrol -) 40 mg IVPUSH DAILY [facility] Last Admin: 08/21/18 10:39 Dose: 40 mg Multivitamins/Minerals/Vitamin C (Tab-A-Vit -) 1 tab PO DAILY [facility] Last Admin: 08/21/18 10:40 Dose: 1 tab Polyethylene Glycol (Miralax (For Daily Use) -) 17 gm PO Q12H PRN PRN Reason: CONSTIPATION Quetiapine Fumarate (Seroquel -) 50 mg PO HS [facility] ASSESSMENT/PLAN: Patient is a 63 y/o male with a history of kidney ca, lung ca, thyroid ca, DM, HTN, HLD, CA, and severe aortic stenosis who is admitted for pneumonia. #Pneumonia with hemoptysis - CXR: shows RLL infiltrate - f/u Chest CT - Continue Vancomycin, Cefepime, and Doxycycline - f/u urine antigens and mycoplasma, f.u blood cx and sputum cx - hold aspirin and lovenxo - pertinent PNA of positive sputum CX klebsiella 3 months ago - influenza negative #hyponatremia - resolved 134, continue NS @ 100 - f/u Na at 2 #anemia - could be 2/2 to chemo, chronic anemia - hgb :7.7, on DC 3 months ago was 11.3 #DM - BGM's ACHs - SS #1st degree AV block - asymtpomatic - no treatment for now - Echo06/21/18 hx: severe aortic stenosis, LV mildly dilated, LV fxn mildly reduced #drug addiction - methadone 120 mg a day, confirmed with [facility] #HTN - hold lisinopril #HLD - hold statins #DVT - hold lovenox - SCD's for now Visit type - Emergency Visit Emergency Visit: No - New Patient This patient is new to me today: Yes Date on this admission: 08/21/18 - Critical Care Critical Care patient: No
[2018-08-21] MEDS ORDERED: SODIUM CHLORIDE 1,000 ML IV SCH (15:14)
[2018-08-21 16:11] LABS: HEMATOCRIT 23.3 % (35.4-49); HEMOGLOBIN 8.1 GM/dL (11.7-16.9); MCH 31.7 pg (25.7-33.7); MCHC 34.8 g/dl (32.0-35.9); MEAN CELL VOLUME 91.1 fl (80-96); MEAN PLT VOLUME 8.1 fl (7.5-11.1); PLATELET COUNT 78 K/MM3 (134-434); RBC 2.55 M/mm3 (4.00-5.60); RDW 19.1 % (11.9-15.9); WHITE BLOOD COUNT 3.6 K/mm3 (4.0-10.0)
[2018-08-21 16:32] LABS: ANION GAP 6 MMOL/L (8-16); BLOOD UREA NITROGEN 25 mg/dL (7-18); CALCIUM 8.1 mg/dL (8.5-10.1); CHLORIDE 96 mmol/L (98-107); CO2 30 mmol/L (21-32); GLUCOSE,RANDOM 296 mg/dL (74-106); POTASSIUM 5.2 mmol/L (3.5-5.1); SODIUM 133 mmol/L (136-145)
--- NOTE | 2018-08-21 17:02 | EKG ---
Test Reason : Blood Pressure : / mmHG Vent. Rate : 088 BPM Atrial Rate : 088 BPM P-R Int : 140 ms QRS Dur : 118 ms QT Int : 382 ms P-R-T Axes : 071 -27 079 degrees QTc Int : 462 ms NORMAL SINUS RHYTHM INCOMPLETE LEFT BUNDLE BRANCH BLOCK BORDERLINE ECG Confirmed by MD RADHA, SCOOTER ([id number]) on 08/21/2018 5:02:25 PM Referred By: Confirmed By:SCOOTER GARCIA MD
[2018-08-21] MEDS: DOXYCYCLINE INJECTION 100 MG in DEXTROSE 5%-WATER 100 ML IVPB SCH ×4 (19:43→22:58)
[2018-08-21] MEDS: ATORVASTATIN CA 20 MG TABLET (FP) PO SCH (22:13)
[2018-08-21] MEDS: QUEtiapine FUMARATE 25 MG TABLET (FP) PO SCH (22:13)
[2018-08-21] MEDS ORDERED: DOXYCYCLINE HYCLATE 100 MG CAPSULE PO ONE (23:01)
[2018-08-22] MEDS ORDERED: CEFEPIME HCL 1 GM VIAL (RESTRICTED TO ID) ONE ×3 (00:51→16:41)
[2018-08-22] MEDS ORDERED: DEXTROSE 5%-WATER 100 ML IVPB ONE ×3 (00:51→16:41)
[2018-08-22] MEDS: CEFEPIME 1 GM in DEXTROSE 5%-WATER 100 ML IVPB SCH ×4 (01:22→19:22)
[2018-08-22 04:18] LABS: SERUM IRON SATURATION 7 % (15-55); TOTAL IRON BINDING CAPACITY 197 ug/dL (250-450); UIBC 184 ug/dL (111-343)
[2018-08-22] MEDS: METHADONE HCL 40 MG DISPERSABLE TABLET PO SCH (05:48)
[2018-08-22] MEDS: INSULIN SLIDING SCALE (NOVOLOG) 1 VIAL SQ SCH ×3 (05:59→16:47)
--- NOTE | 2018-08-22 07:54 | PN ---
Teaching Attending Note Name of Resident: Olivia Kinney ATTENDING PHYSICIAN STATEMENT I saw and evaluated the patient. I reviewed the resident's note and discussed the case with the resident. I agree with the resident's findings and plan as documented. SUBJECTIVE: Patient is comfortable with no acute distress. No fever or chills. OBJECTIVE: Vital Signs Temperature 97.8 F 08/22/18 07:03 Pulse Rate 64 08/22/18 07:03 Respiratory Rate 20 08/22/18 07:03 Blood Pressure 130/72 08/22/18 07:03 O2 Sat by Pulse Oximetry (%) 97 08/21/18 21:00 Initial Vital Signs Temp Pulse Resp BP Pulse Ox 102.4 F H 99 H 18 128/74 94 L 08/20/18 17:11 08/20/18 17:11 08/20/18 17:11 08/20/18 17:11 08/20/18 17:11 GENERAL: The patient is awake, alert, and fully oriented, in no acute distress. HEAD: Normal with no signs of trauma. EYES: PERRL, extraocular movements intact ENT: moist mucous membranes. NECK: Trachea midline, full range of motion, supple. LUNGS: fine crackles a RLL, coarse breath sounds HEART: KELLIE 2/6 radiating to the carotids ABDOMEN: Soft, nontender, nondistended, normoactive bowel sounds EXTREMITIES: 2+ pulses, warm, well-perfused, no edema. SKIN: Warm, dry, normal turgor, no rashes or lesions noted CBCD WBC 3.6 K/mm3 (4.0-10.0) L 08/21/18 14:45 RBC 2.55 M/mm3 (4.00-5.60) L 08/21/18 14:45 Hgb 8.1 GM/dL (11.7-16.9) L 08/21/18 14:45 Hct 23.3 % (35.4-49) L 08/21/18 14:45 MCV 91.1 fl (80-96) 08/21/18 14:45 MCHC 34.8 g/dl (32.0-35.9) 08/21/18 14:45 RDW 19.1 % (11.9-15.9) H 08/21/18 14:45 Plt Count 78 K/MM3 (134-434) L 08/21/18 14:45 MPV 8.1 fl (7.5-11.1) 08/21/18 14:45 CMP Sodium 133 mmol/L (136-145) L 08/21/18 14:45 Potassium 5.2 mmol/L (3.5-5.1) H 08/21/18 14:45 Chloride 96 mmol/L (98-107) L 08/21/18 14:45 Carbon Dioxide 30 mmol/L (21-32) 08/21/18 14:45 Anion Gap 6 MMOL/L (8-16) L 08/21/18 14:45 BUN 25 mg/dL (7-18) H 08/21/18 14:45 Creatinine 1.0 mg/dL (0.55-1.3) 08/21/18 14:45 Creat Clearance w eGFR > 60 (>60) 08/21/18 14:45 Random Glucose 296 mg/dL (74-106) H 08/21/18 14:45 Calcium 8.1 mg/dL (8.5-10.1) L 08/21/18 14:45 Total Bilirubin 0.4 mg/dL (0.2-1) 08/20/18 18:07 AST 25 U/L (15-37) 08/20/18 18:07 ALT 16 U/L (13-61) 08/20/18 18:07 Alkaline Phosphatase 73 U/L (45-117) 08/20/18 18:07 Total Protein 6.2 g/dl (6.4-8.2) L 08/20/18 18:07 Albumin 3.1 g/dl (3.4-5.0) L 08/20/18 18:07 CARDIAC ENZYMES Troponin I 0.03 ng/ml (0.00-0.05) 08/20/18 18:07 Current Medications Generic Name Dose Route Start Last Admin Trade Name Freq PRN Reason Stop Dose Admin Albuterol Sulfate 2 puff 08/20/18 22:22 Ventolin Hfa Inhaler - IH Q4H PRN SHORT OF BREATH/WHEEZING Albuterol/Ipratropium 1 amp 08/20/18 22:22 Duoneb - NEB Q4H PRN SHORT OF BREATH/WHEEZING Atorvastatin Calcium 20 mg 08/21/18 22:00 12/04/18 22:13 Lipitor - PO 20 mg HS KIRA Administration Doxycycline Hyclate 100 mg/ 100 mls @ 100 mls/hr 08/20/18 22:00 08/21/18 22: 58 Dextrose IVPB Not Given BID KIRA Cefepime HCl 1 gm/ Dextrose 100 mls @ 100 mls/hr 08/21/18 10:45 08/22/18 01: 22 IVPB 100 mls/hr Q8H-IV KIRA Administration Protocol Vancomycin HCl 1,000 mg in 250 mls @ 166.667 mls/hr 08/21/18 11:00 08/21/18 22:13 Vancomycin (Pre-Docked) IVPB 166.667 mls/hr BID@1100,2300 [facility] Administration Protocol Insulin Aspart 1 vial 08/21/18 11:00 08/22/18 05:59 Novolog Vial Sliding Scale - SQ Not Given TIDAC [facility] Protocol Methadone HCl 120 mg 08/21/18 10:15 08/22/18 05:48 Dolophine - PO 120 mg DAILY@0600 KIRA Administration Methylprednisolone Sodium Succinate 40 mg 08/20/18 21:45 08/21/18 10:39 Solu-Medrol - IVPUSH 40 mg DAILY KIRA Administration Multivitamins/Minerals/Vitamin C 1 tab 08/21/18 10:00 08/21/18 10:40 Tab-A-Vit - PO 1 tab DAILY KIRA Administration Polyethylene Glycol 17 gm 08/20/18 22:22 Miralax (For Daily Use) - PO Q12H PRN CONSTIPATION Quetiapine Fumarate 50 mg 08/21/18 22:00 08/21/18 22:13 Seroquel - PO 50 mg HS KIRA Administration Home Medications Medication Instructions Recorded Lisinopril [Prinivil] 10 mg PO DAILY 04/15/16 Metformin HCl [Glucophage] 1,000 mg PO BID 04/15/16 Multivitamins [Multivit ([facility] 1 tab PO DAILY 04/15/16 Formulary)] Aspirin [Aspirin EC] 81 mg PO DAILY #0 04/18/16 Glipizide [Glipizide ER] 5 mg PO DAILY 06/20/18 Methadone 110 mg PO DAILY 06/20/18 Simvastatin 40 mg PO HS 06/20/18 Albuterol 2.5/Ipratropium 0.5 1 amp NEB Q4H PRN #25 vial 06/25/18 [Duoneb -] Albuterol Sulfate Inhaler - 2 puff IH Q4H PRN #1 inh 06/25/18 [Ventolin HFA Inhaler -] Nebulizer [Compact Compressor 1 each NR ASDIR PRN #1 kit 06/25/18 Nebulizer] Polyethylene Glycol 3350 [Miralax 17 gm PO BID bottle 06/25/18 119 gm Btl -] Quetiapine Fumarate [Seroquel -] 50 mg PO HS 08/21/18 Microbiology 08/22/18 07:15 Sputum - Expectorated Gram Stain - Final 08/22/18 07:15 Sputum - Expectorated Mycoplasma pneumoniae Culture - Preliminary 08/21/18 10:48 Serum Mycoplasma Antibody - Preliminary 08/21/18 10:48 Serum Mycoplasma Antibody - Preliminary 08/20/18 20:39 Urine - Urine Clean Catch Urine Culture - Final NO GROWTH OBTAINED 08/21/18 12:30 Urine For Antigen Detection Legionella Antigen - Final 08/21/18 12:30 Urine For Antigen Detection Streptococcus pneumoniae Antigen (M - Final 08/20/18 18:10 Blood - Peripheral Venous Blood Culture - Preliminary NO GROWTH OBTAINED AFTER 24 HOURS, INCUBATION TO CONTINUE FOR 4 DAYS. 08/20/18 18:10 Blood - Peripheral Venous Blood Culture - Preliminary NO GROWTH OBTAINED AFTER 24 HOURS, INCUBATION TO CONTINUE FOR [address] scan of the chest without intravenous contrast Coronal and sagittal reconstruction images were obtained. Compared to prior CT scan of the chest dated 08/07/2018 Previously visualized right paratracheal/precarinal mass is again seen measuring 3 x 2.6 cm in transverse and AP dimension without significant interval change. A couple of other right paratracheal lymph nodes are present with the largest measuring 1.5 x 1 1 cm. The nory are not enlarged. The heart is within normal limits in size. Calcification of the coronary arteries are present. Status post aortic valve replacement. There is interval airspace disease with consolidation in the right middle lobe as well as interstitial and airspace opacities in the right lower lobe suggestive of pneumonia. Intervals focal opacity in the left lower lobe suggestive of infiltrates. Previously visualized 4 mm calcified granuloma the right lower lobe , posteriorly is again seen. No pneumothorax or pleural effusion identified. Moderate centrilobular emphysema again noted mainly in the right upper lobe. Included upper abdomen again demonstrates a few small gallstones. There is a punctate nonobstructing left renal upper pole stone. 3 mm calcific density in the right renal hilum that may represent vascular calcification versus a nonobstructing stone. Visualized osseous structures appear intact with mild degenerative changes and anterior spondylosis in the lower thoracic spine IMPRESSION: Interval airspace disease with consolidation, mild air bronchogram and mild bronchiectasis in the right middle lobe as well as patchy interstitial and airspace opacities in the right lower lobe suggestive of pneumonia. There is also focal opacity in the left lower lobe suggestive of infiltrates. Follow- up CT scan of the chest in one to 2 weeks is recommended to assess for change and to rule out underlying pathology. Reported By: Patricio Sampson MD 08/22/18 1021 ASSESSMENT AND PLAN: Patient is a 63yo gentleman with h/o Lung cancer s/p R lobectomy, Lthyroid cancer, and renal cancer s/p L nephrectomy, DM, h/o opioid use on methadone, severe , s/p TVAR, Systolic CHF, Mediastinal mass, currently on chemo and radiation , who presented with fever, cough , and was found ot have RLL PNA # BL Pneumonia : on iv antibiotic continue. On cefepime and vanco, and doxy. continue , ID on the case, negative legionella Ag and pneumonia. No growth so far. CT of chest as above . No hemoptysis today. # Acute Hyponatremia due to volume depletion: decreased po intake. Continue IVF # H/o systolic heart failure: last echo 07/05 reviewed. mildly reduced EF. severe , avoid hypovolemia. monitor carefully with IVF # CP: resolved. not sure of etiology. EKG with L axis , incomplete LBBB, 1st degree AV block . trop nl x 1. no suspicion for ACS. # normocytic anemia: likely due to iron deficinecy with possible folic/B12 deficinecy. will start the patient on iron supplement and will check b12 and FA level. Laboratory Tests 08/21/18 08/21/18 05:20 05:20 Iron 13 L TIBC 197 L Iron Saturation 7 L Ferritin 248.0 # Thrombocytopenia ; due to chemo. monitor # DM : SSI . hold po meds DVT PX : SCDs, heparin is on hold since patient had an episode of hemoptysis( 1 teaspoon)
[2018-08-22 08:07] LABS: ALBUMIN 2.7 g/dl (3.4-5.0); ALK PHOS 68 U/L (45-117); ANION GAP 6 MMOL/L (8-16); BILIRUBIN,TOTAL 0.3 mg/dL (0.2-1); BLOOD UREA NITROGEN 27 mg/dL (7-18); CALCIUM 8.6 mg/dL (8.5-10.1); CHLORIDE 102 mmol/L (98-107); CO2 30 mmol/L (21-32); CREATININE 0.8 mg/dL (0.55-1.3); GLUCOSE,RANDOM 99 mg/dL (74-106); POTASSIUM 4.3 mmol/L (3.5-5.1); SGOT/AST 19 U/L (15-37); SGPT/ALT 15 U/L (13-61); SODIUM 138 mmol/L (136-145); TOT PROT 5.8 g/dl (6.4-8.2)
[2018-08-22 08:50] LABS: HEMATOCRIT 24.7 % (35.4-49); HEMOGLOBIN 8.6 GM/dL (11.7-16.9); MCH 31.7 pg (25.7-33.7); MCHC 34.9 g/dl (32.0-35.9); MEAN CELL VOLUME 90.8 fl (80-96); MEAN PLT VOLUME 8.8 fl (7.5-11.1); PLATELET COUNT 107 K/MM3 (134-434); RBC 2.72 M/mm3 (4.00-5.60); RDW 19.2 % (11.9-15.9); WHITE BLOOD COUNT 4.9 K/mm3 (4.0-10.0)
--- NOTE | 2018-08-22 08:58 | PN ---
Physical Exam: SUBJECTIVE: Patient is a 63 y/o male with a history of kidney ca, lung ca, thyroid ca, DM, HTN, HLD, CA, and severe aortic stenosis who is admitted for pneumonia. Patient reports he feels like hes coughing up clots. He feels a little bit short of breath but reports he feels better from last night. OBJECTIVE: Vital Signs Temperature 97.8 F 08/22/18 08:00 Pulse Rate 60 08/22/18 08:00 Respiratory Rate 18 08/22/18 08:00 Blood Pressure 154/58 L 08/22/18 08:00 O2 Sat by Pulse Oximetry (%) 97 08/21/18 21:00 GENERAL: The patient is awake, alert, and fully oriented, in no acute distress. HEAD: Normal with no signs of trauma. EYES: PERRL, extraocular movements intact ENT: moist mucous membranes. NECK: Trachea midline, full range of motion, supple. LUNGS: fine crackles a RLL, coarse breath sounds HEART: systolic murmur heard best at the upper sternal borders and radiating to the carotids ABDOMEN: Soft, nontender, nondistended, normoactive bowel sounds EXTREMITIES: 2+ pulses, warm, well-perfused, no edema. SKIN: Warm, dry, normal turgor, no rashes or lesions noted CBC, BMP 08/22/18 06:15 08/22/18 06:15 Active Medications Albuterol Sulfate (Ventolin Hfa Inhaler -) 2 puff IH Q4H PRN PRN Reason: SHORT OF BREATH/WHEEZING Albuterol/Ipratropium (Duoneb -) 1 amp NEB Q4H PRN PRN Reason: SHORT OF BREATH/WHEEZING Atorvastatin Calcium (Lipitor -) 20 mg PO HS KIRA Last Admin: 08/21/18 22:13 Dose: 20 mg Doxycycline Hyclate 100 mg/ (Dextrose) 100 mls @ 100 mls/hr IVPB BID [facility] Last Admin: 08/21/18 22:58 Dose: Not Given Cefepime HCl 1 gm/ Dextrose 100 mls @ 100 mls/hr IVPB Q8H-IV [facility]; Protocol Last Admin: 08/22/18 01:22 Dose: 100 mls/hr Vancomycin HCl (Vancomycin (Pre-Docked)) 1,000 mg in 250 mls @ 166.667 mls/hr IVPB BID@1100,2300 [facility]; Protocol Last Admin: 08/21/18 22:13 Dose: 166.667 mls/hr Insulin Aspart (Novolog Vial Sliding Scale -) 1 vial SQ TIDAC [facility]; Protocol Last Admin: 08/22/18 05:59 Dose: Not Given Methadone HCl (Dolophine -) 120 mg PO DAILY@0600 [facility] Last Admin: 08/22/18 05:48 Dose: 120 mg Methylprednisolone Sodium Succinate (Solu-Medrol -) 40 mg IVPUSH DAILY [facility] Last Admin: 08/21/18 10:39 Dose: 40 mg Multivitamins/Minerals/Vitamin C (Tab-A-Vit -) 1 tab PO DAILY [facility] Last Admin: 08/21/18 10:40 Dose: 1 tab Polyethylene Glycol (Miralax (For Daily Use) -) 17 gm PO Q12H PRN PRN Reason: CONSTIPATION Quetiapine Fumarate (Seroquel -) 50 mg PO HS [facility] Last Admin: 08/21/18 22:13 Dose: 50 mg ASSESSMENT/PLAN: Patient is a 63 y/o male with a history of kidney ca, lung ca, thyroid ca, DM, HTN, HLD, CA, and severe aortic stenosis who is admitted for pneumonia. #Pneumonia with hemoptysis - CXR: shows RLL infiltrate - f/u Chest CT - Continue Vancomycin and Cefepime day 2 - f/u urine antigens and mycoplasma, f.u blood cx and sputum cx - hold aspirin and lovenxo - pertinent PNA of positive sputum CX klebsiella 3 months ago - influenza negative - legionella presumptive negative - Vanc level tomorrow - Chest CT: internal airspace disease with consolidation, mild bronchogram and mild bronchiectasis, R middle lobe as well as patchy intestitial and airspace opacities in the right lower lobe suggestive of pneumonia. #hyponatremia - resolved 138, continue NS @ 100 #anemia - could be 2/2 to chemo, chronic anemia - hgb :7.7, on DC 3 months ago was 11.3 #DM - BGM's ACHs - SS #1st degree AV block - asymtpomatic - no treatment for now - Echo06/21/18 hx: severe aortic stenosis, LV mildly dilated, LV fxn mildly reduced #drug addiction - methadone 120 mg a day, confirmed with [facility] #HTN - lisinopril 10 mg daily #HLD - lipitor 20 mg daily #psych - Seroquel 50 mg hs #DVT - hold lovenox - SCD's for now Dispo: monitor for clinical changes Visit type - Emergency Visit Emergency Visit: No - New Patient This patient is new to me today: No - Critical Care Critical Care patient: No
[2018-08-22] MEDS: MULTIVITAMINS (DAILY MVI) TABLET (FP) PO SCH (10:26)
[2018-08-22] MEDS: methylPREDNISolone NA SUCC 40 MG/1 ML VIAL IVPUSH SCH (10:27)
[2018-08-22] MEDS: VANCOMYCIN 1 GRAM (PRE-DOCKED) 1,000 MG/250 ML BAG IVPB SCH ×2 (10:30→22:41)
[2018-08-22] MEDS: DOXYCYCLINE INJECTION 100 MG in DEXTROSE 5%-WATER 100 ML IVPB SCH (10:30)
--- NOTE | 2018-08-22 11:24 | PN ---
Progress Note, Physician History of Present Illness: Awake, alert Seated in bed Reports occasional cough, scant sputum production No c/o chest pain/ dyspnea No fever/ chills CT shows RML, RLL pneumonia - Current Medication List Current Medications: Active Medications Albuterol Sulfate (Ventolin Hfa Inhaler -) 2 puff IH Q4H PRN PRN Reason: SHORT OF BREATH/WHEEZING Albuterol/Ipratropium (Duoneb -) 1 amp NEB Q4H PRN PRN Reason: SHORT OF BREATH/WHEEZING Atorvastatin Calcium (Lipitor -) 20 mg PO HS [facility] Last Admin: 08/21/18 22:13 Dose: 20 mg Doxycycline Hyclate (Vibramycin -) 100 mg PO BID@1000,1800 [facility] Cefepime HCl 1 gm/ Dextrose 100 mls @ 100 mls/hr IVPB Q8H-IV [facility]; Protocol Last Admin: 08/22/18 10:26 Dose: 100 mls/hr Vancomycin HCl (Vancomycin (Pre-Docked)) 1,000 mg in 250 mls @ 166.667 mls/hr IVPB BID@1100,2300 [facility]; Protocol Last Admin: 08/22/18 10:30 Dose: 166.667 mls/hr Insulin Aspart (Novolog Vial Sliding Scale -) 1 vial SQ TIDAC [facility]; Protocol Last Admin: 08/22/18 05:59 Dose: Not Given Methadone HCl (Dolophine -) 120 mg PO DAILY@0600 [facility] Last Admin: 08/22/18 05:48 Dose: 120 mg Methylprednisolone Sodium Succinate (Solu-Medrol -) 40 mg IVPUSH DAILY [facility] Last Admin: 08/22/18 10:27 Dose: 40 mg Multivitamins/Minerals/Vitamin C (Tab-A-Vit -) 1 tab PO DAILY [facility] Last Admin: 08/22/18 10:26 Dose: 1 tab Polyethylene Glycol (Miralax (For Daily Use) -) 17 gm PO Q12H PRN PRN Reason: CONSTIPATION Quetiapine Fumarate (Seroquel -) 50 mg PO HS [facility] Last Admin: 08/21/18 22:13 Dose: 50 mg - Objective Vital Signs: Vital Signs Temperature 97.8 F 08/22/18 08:00 Pulse Rate 60 08/22/18 08:00 Respiratory Rate 18 08/22/18 08:00 Blood Pressure 154/58 L 08/22/18 08:00 O2 Sat by Pulse Oximetry (%) 97 08/21/18 21:00 Constitutional: Yes: No Distress Eyes: Yes: Conjunctiva Clear Cardiovascular: Yes: Regular Rate and Rhythm, S1, S2 Respiratory: Yes: Diminished Gastrointestinal: Yes: Normal Bowel Sounds, Soft. No: Tenderness Edema: No Labs: CBC, BMP 08/22/18 06:15 08/22/18 06:15 INR, PTT INR 1.21 (0.83-1.09) H 08/20/18 18:07 Assessment/Plan RML/RLL pneumonia ?HCAP Lung ca Thrombocytopenia Await sputum c/s Continue vancomycin/ cefepime Check vancomycin level
[2018-08-22] MEDS: DOXYCYCLINE HYCLATE 100 MG CAPSULE PO SCH ×2 (12:09→18:01)
[2018-08-22] MEDS ORDERED: FERROUS SO4 325 MG TABLET (FP) PO SCH (18:02)
[2018-08-22] MEDS: FERROUS SO4 325 MG TABLET (FP) PO SCH (21:24)
[2018-08-22] MEDS: ATORVASTATIN CA 20 MG TABLET (FP) PO SCH (21:24)
[2018-08-22] MEDS: DOCUSATE SODIUM 100 MG CAPSULE (FP) PO SCH (21:24)
[2018-08-22] MEDS: QUEtiapine FUMARATE 25 MG TABLET (FP) PO SCH (21:25)
[2018-08-23] MEDS ORDERED: CEFEPIME HCL 1 GM VIAL (RESTRICTED TO ID) ONE ×3 (00:57→18:00)
[2018-08-23] MEDS ORDERED: DEXTROSE 5%-WATER 100 ML IVPB ONE ×3 (00:57→18:00)
[2018-08-23] MEDS: CEFEPIME 1 GM in DEXTROSE 5%-WATER 100 ML IVPB SCH ×3 (01:03→18:03)
[2018-08-23] MEDS: METHADONE HCL 40 MG DISPERSABLE TABLET PO SCH (07:04)
[2018-08-23] MEDS: INSULIN SLIDING SCALE (NOVOLOG) 1 VIAL SQ SCH ×4 (07:08→22:00)
[2018-08-23] MEDS ORDERED: FERROUS SO4 325 MG TABLET (FP) PO SCH (08:00)
[2018-08-23 08:11] LABS: HEMATOCRIT 28.5 % (35.4-49); MCH 29.1 pg (25.7-33.7); MCHC 31.5 g/dl (32.0-35.9); MEAN CELL VOLUME 92.4 fl (80-96); MEAN PLT VOLUME 8.6 fl (7.5-11.1); PLATELET COUNT 128 K/MM3 (134-434); RBC 3.09 M/mm3 (4.00-5.60); RDW 18.5 % (11.9-15.9); WHITE BLOOD COUNT 3.6 K/mm3 (4.0-10.0)
[2018-08-23] MEDS: FERROUS SO4 325 MG TABLET (FP) PO SCH ×2 (08:31→19:29)
[2018-08-23] MEDS: DOCUSATE SODIUM 100 MG CAPSULE (FP) PO SCH ×2 (08:31→19:29)
--- NOTE | 2018-08-23 08:50 | PN ---
Teaching Attending Note Name of Resident: Olivia Kinney ATTENDING PHYSICIAN STATEMENT I saw and evaluated the patient. I reviewed the resident's note and discussed the case with the resident. I agree with the resident's findings and plan as documented. SUBJECTIVE: Patient is feeling better with no acute distress. No fever or chills, no shortness of breath. OBJECTIVE: Vital Signs Temperature 98.4 F 08/23/18 05:10 Pulse Rate 56 L 08/23/18 05:10 Respiratory Rate 20 08/23/18 05:10 Blood Pressure 156/70 08/23/18 05:10 O2 Sat by Pulse Oximetry (%) 96 08/22/18 22:26 GENERAL: The patient is awake, alert, and fully oriented, in no acute distress. HEAD: Normal with no signs of trauma. EYES: PERRL, extraocular movements intact ENT: moist mucous membranes. NECK: Trachea midline, full range of motion, supple. LUNGS: fine crackle R>L, coarse breath sounds HEART: KELLIE 2/6 radiating to the carotids ABDOMEN: Soft, nontender, nondistended, normoactive bowel sounds EXTREMITIES: 2+ pulses, warm, well-perfused, no edema. SKIN: Warm, dry, normal turgor, no rashes or lesions noted CBCD WBC 3.6 K/mm3 (4.0-10.0) L 08/23/18 06:00 RBC 3.09 M/mm3 (4.00-5.60) L 08/23/18 06:00 Hgb 9.0 GM/dL (11.7-16.9) L 08/23/18 06:00 Hct 28.5 % (35.4-49) L D 08/23/18 06:00 MCV 92.4 fl (80-96) 08/23/18 06:00 MCHC 31.5 g/dl (32.0-35.9) L 08/23/18 06:00 RDW 18.5 % (11.9-15.9) H 08/23/18 06:00 Plt Count 128 K/MM3 (134-434) L 08/23/18 06:00 MPV 8.6 fl (7.5-11.1) 08/23/18 06:00 CMP Sodium 138 mmol/L (136-145) 08/22/18 06:15 Potassium 4.3 mmol/L (3.5-5.1) 08/22/18 06:15 Chloride 102 mmol/L (98-107) 08/22/18 06:15 Carbon Dioxide 30 mmol/L (21-32) 08/22/18 06:15 Anion Gap 6 MMOL/L (8-16) L 08/22/18 06:15 BUN 27 mg/dL (7-18) H 08/22/18 06:15 Creatinine 0.8 mg/dL (0.55-1.3) 08/22/18 06:15 Creat Clearance w eGFR > 60 (>60) 08/22/18 06:15 Random Glucose 99 mg/dL (74-106) 08/22/18 06:15 Calcium 8.6 mg/dL (8.5-10.1) 08/22/18 06:15 Total Bilirubin 0.3 mg/dL (0.2-1) 08/22/18 06:15 AST 19 U/L (15-37) 08/22/18 06:15 ALT 15 U/L (13-61) 08/22/18 06:15 Alkaline Phosphatase 68 U/L (45-117) 08/22/18 06:15 Total Protein 5.8 g/dl (6.4-8.2) L 08/22/18 06:15 Albumin 2.7 g/dl (3.4-5.0) L 08/22/18 06:15 CARDIAC ENZYMES Troponin I 0.03 ng/ml (0.00-0.05) 08/20/18 18:07 Current Medications Generic Name Dose Route Start Last Admin Trade Name Freq PRN Reason Stop Dose Admin Albuterol Sulfate 2 puff 08/20/18 22:22 Ventolin Hfa Inhaler - IH Q4H PRN SHORT OF BREATH/WHEEZING Albuterol/Ipratropium 1 amp 08/20/18 22:22 Duoneb - NEB Q4H PRN SHORT OF BREATH/WHEEZING Atorvastatin Calcium 20 mg 08/21/18 22:00 08/22/18 21:24 Lipitor - PO 20 mg HS [facility] Administration Docusate Sodium 100 mg 08/22/18 20:00 08/23/18 08:31 Colace - PO 100 mg Q12H [facility] Administration Doxycycline Hyclate 100 mg 08/22/18 10:45 08/22/18 18:01 Vibramycin - PO 100 mg BID@1000,1800 [facility] Administration Ferrous Sulfate 325 mg 08/22/18 20:00 08/23/18 08:31 Feosol - PO 325 mg Q12H [facility] Administration Cefepime HCl 1 gm/ Dextrose 100 mls @ 100 mls/hr 08/21/18 10:45 08/23/18 01: 03 IVPB 100 mls/hr Q8H-IV [facility] Administration Protocol Vancomycin HCl 1,000 mg in 250 mls @ 166.667 mls/hr 08/21/18 11:00 08/22/18 22:41 Vancomycin (Pre-Docked) IVPB 166.667 mls/hr BID@1100,2300 [facility] Administration Protocol Insulin Aspart 1 vial 08/21/18 11:00 08/23/18 07:08 Novolog Vial Sliding Scale - SQ Not Given TIDAC [facility] Protocol Lisinopril 10 mg 08/23/18 10:00 Prinivil PO DAILY [facility] Methadone HCl 120 mg 08/21/18 10:15 08/23/18 07:04 Dolophine - PO 120 mg DAILY@0600 [facility] Administration Methylprednisolone Sodium Succinate 40 mg 08/20/18 21:45 08/22/18 10:27 Solu-Medrol - IVPUSH 40 mg DAILY [facility] Administration Multivitamins/Minerals/Vitamin C 1 tab 08/21/18 10:00 08/22/18 10:26 Tab-A-Vit - PO 1 tab DAILY [facility] Administration Polyethylene Glycol 17 gm 08/20/18 22:22 Miralax (For Daily Use) - PO Q12H PRN CONSTIPATION Quetiapine Fumarate 50 mg 08/21/18 22:00 08/22/18 21:25 Seroquel - PO 50 mg HS [facility] Administration Home Medications Medication Instructions Recorded Lisinopril [Prinivil] 10 mg PO DAILY 04/15/16 Metformin HCl [Glucophage] 1,000 mg PO BID 04/15/16 Multivitamins [Multivit ([facility] 1 tab PO DAILY 04/15/16 Formulary)] Aspirin [Aspirin EC] 81 mg PO DAILY #0 04/18/16 Glipizide [Glipizide ER] 5 mg PO DAILY 06/20/18 Methadone 110 mg PO DAILY 06/20/18 Simvastatin 40 mg PO HS 06/20/18 Albuterol 2.5/Ipratropium 0.5 1 amp NEB Q4H PRN #25 vial 06/25/18 [Duoneb -] Albuterol Sulfate Inhaler - 2 puff IH Q4H PRN #1 inh 06/25/18 [Ventolin HFA Inhaler -] Nebulizer [Compact Compressor 1 each NR ASDIR PRN #1 kit 06/25/18 Nebulizer] Polyethylene Glycol 3350 [Miralax 17 gm PO BID bottle 06/25/18 119 gm Btl -] Quetiapine Fumarate [Seroquel -] 50 mg PO HS 08/21/18 ASSESSMENT AND PLAN: CT scan of the chest without intravenous contrast Coronal and sagittal reconstruction images were obtained. Compared to prior CT scan of the chest dated 08/07/2018 Previously visualized right paratracheal/precarinal mass is again seen measuring 3 x 2.6 cm in transverse and AP dimension without significant interval change. A couple of other right paratracheal lymph nodes are present with the largest measuring 1.5 x 1 1 cm. The nory are not enlarged. The heart is within normal limits in size. Calcification of the coronary arteries are present. Status post aortic valve replacement. There is interval airspace disease with consolidation in the right middle lobe as well as interstitial and airspace opacities in the right lower lobe suggestive of pneumonia. Intervals focal opacity in the left lower lobe suggestive of infiltrates. Previously visualized 4 mm calcified granuloma the right lower lobe , posteriorly is again seen. No pneumothorax or pleural effusion identified. Moderate centrilobular emphysema again noted mainly in the right upper lobe. Included upper abdomen again demonstrates a few small gallstones. There is a punctate nonobstructing left renal upper pole stone. 3 mm calcific density in the right renal hilum that may represent vascular calcification versus a nonobstructing stone. Visualized osseous structures appear intact with mild degenerative changes and anterior spondylosis in the lower thoracic spine IMPRESSION: Interval airspace disease with consolidation, mild air bronchogram and mild bronchiectasis in the right middle lobe as well as patchy interstitial and airspace opacities in the right lower lobe suggestive of pneumonia. There is also focal opacity in the left lower lobe suggestive of infiltrates. Follow- up CT scan of the chest in one to 2 weeks is recommended to assess for change and to rule out underlying pathology. Reported By: Patricio Sampson MD 08/22/18 1021 ASSESSMENT AND PLAN: Patient is a 63yo gentleman with h/o Lung cancer s/p R lobectomy, Lthyroid cancer, and renal cancer s/p L nephrectomy, DM, h/o opioid use on methadone, severe , s/p TVAR, Systolic CHF, Mediastinal mass, currently on chemo and radiation , who presented with fever, cough , and was found ot have RLL PNA # BL Pneumonia : on iv antibiotic continue. On cefepime and vanco, and doxy. As per ID to continue IV antibiotics since patient has an extensive Pneumonia, ID on the case, negative legionella Ag and pneumonia. No growth so far. CT of chest as above . No hemoptysis today. sputum is positive for yeast. # Acute Hyponatremia improved 138 today , due to volume depletion: decreased po intake. # H/o systolic heart failure: last echo 07/05 reviewed. mildly reduced EF. severe , avoid hypovolemia. # CP: resolved. not sure of etiology. EKG with L axis , incomplete LBBB, 1st degree AV block . trop nl x 1. no suspicion for ACS. # normocytic anemia: likely due to iron deficinecy with possible folic/B12 deficinecy. will start the patient on iron supplement and will check b12 and FA level. Laboratory Tests 08/21/18 08/21/18 05:20 05:20 Iron 13 L TIBC 197 L Iron Saturation 7 L Ferritin 248.0 # Thrombocytopenia ; due to chemo. monitor # DM : SSI . hold po meds DVT PX : SCDs, heparin is on hold since patient had an episode of hemoptysis( 1 teaspoon)
[2018-08-23 08:59] LABS: ANION GAP 7 MMOL/L (8-16); BLOOD UREA NITROGEN 26 mg/dL (7-18); CALCIUM 8.9 mg/dL (8.5-10.1); CHLORIDE 101 mmol/L (98-107); CO2 31 mmol/L (21-32); CREATININE 0.9 mg/dL (0.55-1.3); GLUCOSE,RANDOM 84 mg/dL (74-106); POTASSIUM 4.1 mmol/L (3.5-5.1); SODIUM 139 mmol/L (136-145)
[2018-08-23] MEDS ORDERED: PT OWN MED DRAWER 7, Y5N ONE (10:03)
[2018-08-23] MEDS: DOXYCYCLINE HYCLATE 100 MG CAPSULE PO SCH (10:08)
[2018-08-23] MEDS: methylPREDNISolone NA SUCC 40 MG/1 ML VIAL IVPUSH SCH (10:08)
[2018-08-23] MEDS: LISINOPRIL 10 MG TABLET (FP) PO SCH (10:08)
[2018-08-23] MEDS: MULTIVITAMINS (DAILY MVI) TABLET (FP) PO SCH (10:08)
[2018-08-23] MEDS: VANCOMYCIN 1 GRAM (PRE-DOCKED) 1,000 MG/250 ML BAG IVPB SCH ×2 (11:43→22:35)
--- NOTE | 2018-08-23 12:37 | PN ---
Progress Note, Physician History of Present Illness: Awake, alert Seated in bed Reports occasional cough, difficulty expectorating No hemoptysis No c/o chest pain/ dyspnea No fever/ chills Leukopenic / pancytopenic BC (-) Sputum c/s yeast - Current Medication List Current Medications: Active Medications Albuterol Sulfate (Ventolin Hfa Inhaler -) 2 puff IH Q4H PRN PRN Reason: SHORT OF BREATH/WHEEZING Albuterol/Ipratropium (Duoneb -) 1 amp NEB Q4H PRN PRN Reason: SHORT OF BREATH/WHEEZING Atorvastatin Calcium (Lipitor -) 20 mg PO HS [facility] Last Admin: 08/22/18 21:24 Dose: 20 mg Docusate Sodium (Colace -) 100 mg PO Q12H [facility] Last Admin: 08/23/18 08:31 Dose: 100 mg Doxycycline Hyclate (Vibramycin -) 100 mg PO BID@1000,1800 [facility] Last Admin: 08/23/18 10:08 Dose: 100 mg Ferrous Sulfate (Feosol -) 325 mg PO Q12H [facility] Last Admin: 08/23/18 08:31 Dose: 325 mg Cefepime HCl 1 gm/ Dextrose 100 mls @ 100 mls/hr IVPB Q8H-IV [facility]; Protocol Last Admin: 08/23/18 10:08 Dose: 100 mls/hr Vancomycin HCl (Vancomycin (Pre-Docked)) 1,000 mg in 250 mls @ 166.667 mls/hr IVPB BID@1100,2300 [facility]; Protocol Last Admin: 08/23/18 11:43 Dose: 166.667 mls/hr Insulin Aspart (Novolog Vial Sliding Scale -) 1 vial SQ TIDAC [facility]; Protocol Last Admin: 08/23/18 11:45 Dose: 2 units Lisinopril (Prinivil) 10 mg PO DAILY [facility] Last Admin: 08/23/18 10:08 Dose: 10 mg Methadone HCl (Dolophine -) 120 mg PO DAILY@0600 [facility] Last Admin: 08/23/18 07:04 Dose: 120 mg Methylprednisolone Sodium Succinate (Solu-Medrol -) 40 mg IVPUSH DAILY [facility] Last Admin: 08/23/18 10:08 Dose: 40 mg Multivitamins/Minerals/Vitamin C (Tab-A-Vit -) 1 tab PO DAILY [facility] Last Admin: 08/23/18 10:08 Dose: 1 tab Polyethylene Glycol (Miralax (For Daily Use) -) 17 gm PO Q12H PRN PRN Reason: CONSTIPATION Quetiapine Fumarate (Seroquel -) 50 mg PO HS [facility] Last Admin: 08/22/18 21:25 Dose: 50 mg - Objective Vital Signs: Vital Signs Temperature 97.9 F 08/23/18 09:00 Pulse Rate 75 08/23/18 09:00 Respiratory Rate 20 08/23/18 09:00 Blood Pressure 139/63 08/23/18 09:00 O2 Sat by Pulse Oximetry (%) 94 L 08/23/18 09:00 Constitutional: Yes: No Distress Eyes: Yes: Conjunctiva Clear Cardiovascular: Yes: Regular Rate and Rhythm, S1, S2 Respiratory: Yes: CTA Bilaterally Gastrointestinal: Yes: Normal Bowel Sounds, Soft. No: Tenderness Edema: No Labs: CBC, BMP 08/23/18 06:00 08/23/18 06:00 INR, PTT INR 1.21 (0.83-1.09) H 08/20/18 18:07 Assessment/Plan RML/RLL pneumonia ?HCAP Lung ca Pancytopenia +Sputum c/s yeast Continue vancomycin/ cefepime Substitute po antibiotics 24hr No treatment for yeast in sputum
--- NOTE | 2018-08-23 13:26 | PN ---
Physical Exam: SUBJECTIVE: Patient is a 63 y/o male with a history of kidney ca, lung ca, thyroid ca, DM, HTN, HLD, CA, and severe aortic stenosis who is admitted for pneumonia. Patient reports he is feeling better. No acute events overnight. OBJECTIVE: Vital Signs Temperature 97.9 F 08/23/18 09:00 Pulse Rate 75 08/23/18 09:00 Respiratory Rate 20 08/23/18 09:00 Blood Pressure 139/63 08/23/18 09:00 O2 Sat by Pulse Oximetry (%) 94 L 08/23/18 09:00 GENERAL: The patient is awake, alert, and fully oriented, in no acute distress. HEAD: Normal with no signs of trauma. EYES: PERRL, extraocular movements intact ENT: moist mucous membranes. NECK: Trachea midline, full range of motion, supple. LUNGS: fine crackles a RLL, coarse breath sounds HEART: systolic murmur heard best at the upper sternal borders and radiating to the carotids ABDOMEN: Soft, nontender, nondistended, normoactive bowel sounds EXTREMITIES: 2+ pulses, warm, well-perfused, no edema. SKIN: Warm, dry, normal turgor, no rashes or lesions noted CBC, BMP 08/23/18 06:00 08/23/18 06:00 Active Medications Albuterol Sulfate (Ventolin Hfa Inhaler -) 2 puff IH Q4H PRN PRN Reason: SHORT OF BREATH/WHEEZING Albuterol/Ipratropium (Duoneb -) 1 amp NEB Q4H PRN PRN Reason: SHORT OF BREATH/WHEEZING Atorvastatin Calcium (Lipitor -) 20 mg PO HS [facility] Last Admin: 08/22/18 21:24 Dose: 20 mg Docusate Sodium (Colace -) 100 mg PO Q12H [facility] Last Admin: 08/23/18 08:31 Dose: 100 mg Doxycycline Hyclate (Vibramycin -) 100 mg PO BID@1000,1800 [facility] Last Admin: 08/23/18 10:08 Dose: 100 mg Ferrous Sulfate (Feosol -) 325 mg PO Q12H [facility] Last Admin: 08/23/18 08:31 Dose: 325 mg Cefepime HCl 1 gm/ Dextrose 100 mls @ 100 mls/hr IVPB Q8H-IV [facility]; Protocol Last Admin: 08/23/18 10:08 Dose: 100 mls/hr Vancomycin HCl (Vancomycin (Pre-Docked)) 1,000 mg in 250 mls @ 166.667 mls/hr IVPB BID@1100,2300 [facility]; Protocol Last Admin: 08/23/18 11:43 Dose: 166.667 mls/hr Insulin Aspart (Novolog Vial Sliding Scale -) 1 vial SQ TIDAC [facility]; Protocol Last Admin: 08/23/18 11:45 Dose: 2 units Lisinopril (Prinivil) 10 mg PO DAILY [facility] Last Admin: 08/23/18 10:08 Dose: 10 mg Methadone HCl (Dolophine -) 120 mg PO DAILY@0600 [facility] Last Admin: 08/23/18 07:04 Dose: 120 mg Methylprednisolone Sodium Succinate (Solu-Medrol -) 40 mg IVPUSH DAILY [facility] Last Admin: 08/23/18 10:08 Dose: 40 mg Multivitamins/Minerals/Vitamin C (Tab-A-Vit -) 1 tab PO DAILY [facility] Last Admin: 08/23/18 10:08 Dose: 1 tab Polyethylene Glycol (Miralax (For Daily Use) -) 17 gm PO Q12H PRN PRN Reason: CONSTIPATION Quetiapine Fumarate (Seroquel -) 50 mg PO HS [facility] Last Admin: 08/22/18 21:25 Dose: 50 mg ASSESSMENT/PLAN: Patient is a 63 y/o male with a history of kidney ca, lung ca, thyroid ca, DM, HTN, HLD, CA, and severe aortic stenosis who is admitted for pneumonia. #Pneumonia with hemoptysis - CXR: shows RLL infiltrate - f/u Chest CT - Continue Vancomycin and Cefepime day 3 - f/u urine antigens and mycoplasma, f.u blood cx - sputum cx currently growing yeast like organisms - hold aspirin and lovenxo - legionella presumptive negative - Chest CT: internal airspace disease with consolidation, mild bronchogram and mild bronchiectasis, R middle lobe as well as patchy intestitial and airspace opacities in the right lower lobe suggestive of pneumonia. - per ID can probably go home tomorrow #hyponatremia - resolved 138, continue NS @ 100 #anemia - could be 2/2 to chemo, chronic anemia - hgb : 9 #DM - BGM's ACHs - SS #1st degree AV block - asymtpomatic - no treatment for now - Echo10/4/18 hx: severe aortic stenosis, LV mildly dilated, LV fxn mildly reduced #drug addiction - methadone 120 mg a day, confirmed with [facility] #HTN - lisinopril 10 mg daily #HLD - lipitor 20 mg daily #psych - Seroquel 50 mg hs #DVT - hold lovenox - SCD's for now Dispo: likely go home tomorrow, monitor clinical Visit type - Emergency Visit Emergency Visit: No - New Patient This patient is new to me today: No - Critical Care Critical Care patient: No
[2018-08-23] MEDS: ATORVASTATIN CA 20 MG TABLET (FP) PO SCH (21:15)
[2018-08-23] MEDS: QUEtiapine FUMARATE 25 MG TABLET (FP) PO SCH (21:15)
[2018-08-23] MEDS ORDERED: INSULIN (NOVOLOG) ASPART 100 UNITS/ML 10ML VIAL ONE (21:18)
[2018-08-24] MEDS ORDERED: CEFEPIME HCL 1 GM VIAL (RESTRICTED TO ID) ONE ×2 (00:52→09:00)
[2018-08-24] MEDS ORDERED: DEXTROSE 5%-WATER 100 ML IVPB ONE ×2 (00:53→09:00)
[2018-08-24] MEDS: CEFEPIME 1 GM in DEXTROSE 5%-WATER 100 ML IVPB SCH ×2 (01:11→09:18)
[2018-08-24] MEDS: METHADONE HCL 40 MG DISPERSABLE TABLET PO SCH (05:59)
[2018-08-24] MEDS: INSULIN SLIDING SCALE (NOVOLOG) 1 VIAL SQ SCH ×2 (06:00→12:46)
[2018-08-24] MEDS: FERROUS SO4 325 MG TABLET (FP) PO SCH (08:48)
[2018-08-24] MEDS: DOCUSATE SODIUM 100 MG CAPSULE (FP) PO SCH (08:48)
[2018-08-24] MEDS ORDERED: PT OWN MED DRAWER 7, Y5N ONE (09:00)
[2018-08-24] MEDS: MULTIVITAMINS (DAILY MVI) TABLET (FP) PO SCH (09:17)
[2018-08-24] MEDS: LISINOPRIL 10 MG TABLET (FP) PO SCH (09:17)
[2018-08-24] MEDS ORDERED: predniSONE 20 MG TABLET (UD) PO SCH (10:00)
--- NOTE | 2018-08-24 11:18 | PN ---
Progress Note, Physician History of Present Illness: Awake, alert Seated in bed Reports occasional cough, difficulty expectorating No hemoptysis No c/o chest pain/ dyspnea No fever/ chills BC (-) Sputum c/s yeast - Current Medication List Current Medications: Active Medications Albuterol Sulfate (Ventolin Hfa Inhaler -) 2 puff IH Q4H PRN PRN Reason: SHORT OF BREATH/WHEEZING Albuterol/Ipratropium (Duoneb -) 1 amp NEB Q4H PRN PRN Reason: SHORT OF BREATH/WHEEZING Atorvastatin Calcium (Lipitor -) 20 mg PO HS [facility] Last Admin: 08/23/18 21:15 Dose: 20 mg Docusate Sodium (Colace -) 100 mg PO Q12H [facility] Last Admin: 08/24/18 08:48 Dose: 100 mg Ferrous Sulfate (Feosol -) 325 mg PO Q12H [facility] Last Admin: 08/24/18 08:48 Dose: 325 mg Cefepime HCl 1 gm/ Dextrose 100 mls @ 100 mls/hr IVPB Q8H-IV [facility]; Protocol Last Admin: 08/24/18 09:18 Dose: 100 mls/hr Vancomycin HCl (Vancomycin (Pre-Docked)) 1,000 mg in 250 mls @ 166.667 mls/hr IVPB BID@1100,2300 [facility]; Protocol Last Admin: 08/23/18 22:35 Dose: 166.667 mls/hr Insulin Aspart (Novolog Vial Sliding Scale -) 1 vial SQ TIDAC [facility]; Protocol Last Admin: 08/24/18 06:00 Dose: Not Given Lisinopril (Prinivil) 10 mg PO DAILY [facility] Last Admin: 08/24/18 09:17 Dose: 10 mg Methadone HCl (Dolophine -) 120 mg PO DAILY@0600 [facility] Last Admin: 08/24/18 05:59 Dose: 120 mg Multivitamins/Minerals/Vitamin C (Tab-A-Vit -) 1 tab PO DAILY [facility] Last Admin: 08/24/18 09:17 Dose: 1 tab Polyethylene Glycol (Miralax (For Daily Use) -) 17 gm PO Q12H PRN PRN Reason: CONSTIPATION Prednisone (Deltasone -) 40 mg PO DAILY [facility] Last Admin: 08/24/18 09:17 Dose: 40 mg Quetiapine Fumarate (Seroquel -) 50 mg PO HS [facility] Last Admin: 08/23/18 21:15 Dose: 50 mg - Objective Vital Signs: Vital Signs Temperature 98.3 F 08/24/18 06:00 Pulse Rate 60 08/24/18 06:00 Respiratory Rate 20 08/24/18 06:00 Blood Pressure 140/70 08/24/18 06:00 O2 Sat by Pulse Oximetry (%) 100 08/23/18 19:30 Constitutional: Yes: No Distress Eyes: Yes: Conjunctiva Clear Cardiovascular: Yes: Regular Rate and Rhythm, S1, S2 Respiratory: Yes: CTA Bilaterally Gastrointestinal: Yes: Normal Bowel Sounds, Soft. No: Tenderness Edema: No Labs: CBC, BMP 08/23/18 06:00 08/23/18 06:00 INR, PTT INR 1.21 (0.83-1.09) H 08/20/18 18:07 Assessment/Plan RML/RLL pneumonia ?HCAP Lung ca Pancytopenia +Sputum c/s yeast Substitute po Augmentin 875mg bid x7d Needs follow up CT to document resolution of infiltrates
[2018-08-24] MEDS: VANCOMYCIN 1 GRAM (PRE-DOCKED) 1,000 MG/250 ML BAG IVPB SCH (11:27)
--- NOTE | 2018-08-24 12:15 | DS ---
Physical Exam: SUBJECTIVE: Patient is a 63 y/o male with a history of kidney ca, lung ca, thyroid ca, DM, HTN, HLD, CA, and severe aortic stenosis who is admitted for pneumonia. Patient reports he is feeling better. No acute events overnight. OBJECTIVE: Vital Signs Temperature 98.3 F 08/24/18 06:00 Pulse Rate 60 08/24/18 06:00 Respiratory Rate 20 08/24/18 06:00 Blood Pressure 140/70 08/24/18 06:00 O2 Sat by Pulse Oximetry (%) 100 08/23/18 19:30 PHYSICAL EXAM GENERAL: The patient is awake, alert, and fully oriented, in no acute distress. HEAD: Normal with no signs of trauma. EYES: PERRL, extraocular movements intact ENT: moist mucous membranes. NECK: Trachea midline, full range of motion, supple. LUNGS: fine crackles a RLL, coarse breath sounds HEART: systolic murmur heard best at the upper sternal borders and radiating to the carotids ABDOMEN: Soft, nontender, nondistended, normoactive bowel sounds EXTREMITIES: 2+ pulses, warm, well-perfused, no edema. SKIN: Warm, dry, normal turgor, no rashes or lesions noted LABS Laboratory Results - last 24 hr 08/23/18 08/23/18 08/24/18 16:54 21:20 05:58 POC Glucometer 237 318 110 HOSPITAL COURSE: Date of Admission:08/20/18 Patient admitted to the hospital for pneumonia. Started on IV antibiotics. XR showed RLL infiltrate. Patient to finish augmentin as an outpatient. Patient to finish steroid taper as an outpatient. Yeast in sputum does not need to be treated per ID. Patient presented with hyponatremia, it resolved with NS. EKG showed first degree AV block. Chest CT: internal airspace disease with consolidation, mild bronchogram and mild bronchiectasis, R middle lobe as well as patchy intestitial and airspace opacities in the right lower lobe suggestive of pneumonia. sputum cx: yeast UCx: negative Blood cx negative Date of Discharge: 08/24/18 Minutes to complete discharge: 38 Discharge Summary Reason For Visit: PNEUMONIA Condition: Good - Instructions Diet, Activity, Other Instructions: You were admitted to the hospital for a pneumonia. We gave you antibiotics, please complete the course of antibiotics to complete treatment of the pneumonia. To finish treatment of your pneumonia please take: Augmentin 875 mg by mouth twice a day for seven days with food. Steroids as the taper below says: take it with food. 40mg for two days (8 pills)=5mg x 8=40mg 35mg for two days (7 pills)=5mg x7=35mg 30mg for two days (6 pills)=5mg x6=30mg 25 mg for two days (5 pills)=5mg x 5=25mg 20 mg for two days (4 pills)=5mgx 4=20mg 15 mg for two days (3 pills=5mg x 3=15mg 10 mg for two days (2 pills)=5mg x 2= 10mg 5 mg for two days (1 pill) You need to have a repeat chest CT done to follow up, please speak to your primary care physician about this. Please continue your home medications as prescribed. Please follow up with your primary care physician within one week. Return to the Emergency Department if you have shortness of breath, nausea, vomiting, diarrhea, or chest pain. Referrals: Mayco Adkins MD [Primary Care Provider] - Disposition: HOME - Home Medications Comprehensive Discharge Medication List: Ambulatory Orders Lisinopril [Prinivil] 10 mg PO DAILY 04/15/16 Metformin HCl [Glucophage] 1,000 mg PO BID 04/15/16 Multivitamins [Multivit ([facility] Formulary)] 1 tab PO DAILY 04/15/16 Aspirin [Aspirin EC] 81 mg PO DAILY #0 04/18/16 Glipizide [Glipizide ER] 5 mg PO DAILY 06/20/18 Methadone 110 mg PO DAILY 06/20/18 Simvastatin 40 mg PO HS 06/20/18 Albuterol 2.5/Ipratropium 0.5 [Duoneb -] 1 amp NEB Q4H PRN #25 vial 06/25/18 Albuterol Sulfate Inhaler - [Ventolin HFA Inhaler -] 2 puff IH Q4H PRN #1 inh Nebulizer [Compact Compressor Nebulizer] 1 each NR ASDIR PRN #1 kit 06/25/18 Polyethylene Glycol 3350 [Miralax 119 gm Btl -] 17 gm PO BID bottle 06/25/18 Quetiapine Fumarate [Seroquel -] 50 mg PO HS 08/21/18 Amox-Tr/K Cl [Augmentin - 875Mg Tablet] 1 tab PO BID #14 tablet 08/24/18 Prednisone See Taper PO DAILY 12 Days #72 tablet 08/24/18 This patient is new to me today: No Emergency Visit: No Critical Care patient: No - Discharge Referral Referred to [facility] No
[2018-08-24 15:53] VITALS: BP 127/58; PULSE 62; TEMP 98.2
--- NOTE | 2018-08-24 16:28 | PN ---
Teaching Attending Note Name of Resident: Olivia Kinney ATTENDING PHYSICIAN STATEMENT I saw and evaluated the patient. I reviewed the resident's note and discussed the case with the resident. I agree with the resident's findings and plan as documented. SUBJECTIVE: Patient is feeling better with no acute distress. Patient wants to go home. No fever or shortness of breath. OBJECTIVE: Vital Signs Temperature 98.2 F 08/24/18 10:00 Pulse Rate 62 08/24/18 10:00 Respiratory Rate 20 08/24/18 10:00 Blood Pressure 127/58 L 08/24/18 10:00 O2 Sat by Pulse Oximetry (%) 96 08/24/18 09:00 GENERAL: The patient is awake, alert, and fully oriented, in no acute distress. HEAD: Normal with no signs of trauma. EYES: PERRL, extraocular movements intact ENT: moist mucous membranes. NECK: Trachea midline, full range of motion, supple. LUNGS: decreased air entery bl HEART: KELLIE 2/6 radiating to the carotids ABDOMEN: Soft, nontender, nondistended, normoactive bowel sounds EXTREMITIES: 2+ pulses, warm, well-perfused, no edema. SKIN: Warm, dry, normal turgor, no rashes or lesions noted CBCD WBC 3.6 K/mm3 (4.0-10.0) L 08/23/18 06:00 RBC 3.09 M/mm3 (4.00-5.60) L 08/23/18 06:00 Hgb 9.0 GM/dL (11.7-16.9) L 08/23/18 06:00 Hct 28.5 % (35.4-49) L D 08/23/18 06:00 MCV 92.4 fl (80-96) 08/23/18 06:00 MCHC 31.5 g/dl (32.0-35.9) L 08/23/18 06:00 RDW 18.5 % (11.9-15.9) H 08/23/18 06:00 Plt Count 128 K/MM3 (134-434) L 08/23/18 06:00 MPV 8.6 fl (7.5-11.1) 08/23/18 06:00 CMP Sodium 139 mmol/L (136-145) 08/23/18 06:00 Potassium 4.1 mmol/L (3.5-5.1) 08/23/18 06:00 Chloride 101 mmol/L (98-107) 08/23/18 06:00 Carbon Dioxide 31 mmol/L (21-32) 08/23/18 06:00 Anion Gap 7 MMOL/L (8-16) L 08/23/18 06:00 BUN 26 mg/dL (7-18) H 08/23/18 06:00 Creatinine 0.9 mg/dL (0.55-1.3) 08/23/18 06:00 Creat Clearance w eGFR > 60 (>60) 08/23/18 06:00 Random Glucose 84 mg/dL (74-106) 08/23/18 06:00 Calcium 8.9 mg/dL (8.5-10.1) 08/23/18 06:00 Total Bilirubin 0.3 mg/dL (0.2-1) 08/22/18 06:15 AST 19 U/L (15-37) 08/22/18 06:15 ALT 15 U/L (13-61) 08/22/18 06:15 Alkaline Phosphatase 68 U/L (45-117) 08/22/18 06:15 Total Protein 5.8 g/dl (6.4-8.2) L 08/22/18 06:15 Albumin 2.7 g/dl (3.4-5.0) L 08/22/18 06:15 CARDIAC ENZYMES Troponin I 0.03 ng/ml (0.00-0.05) 08/20/18 18:07 Home Medications Medication Instructions Recorded Lisinopril [Prinivil] 10 mg PO DAILY 04/15/16 Metformin HCl [Glucophage] 1,000 mg PO BID 04/15/16 Multivitamins [Multivit ([facility] 1 tab PO DAILY 04/15/16 Formulary)] Aspirin [Aspirin EC] 81 mg PO DAILY #0 04/18/16 Glipizide [Glipizide ER] 5 mg PO DAILY 06/20/18 Methadone 110 mg PO DAILY 06/20/18 Simvastatin 40 mg PO HS 06/20/18 Albuterol 2.5/Ipratropium 0.5 1 amp NEB Q4H PRN #25 vial 06/25/18 [Duoneb -] Albuterol Sulfate Inhaler - 2 puff IH Q4H PRN #1 inh 06/25/18 [Ventolin HFA Inhaler -] Nebulizer [Compact Compressor 1 each NR ASDIR PRN #1 kit 06/25/18 Nebulizer] Polyethylene Glycol 3350 [Miralax 17 gm PO BID bottle 06/25/18 119 gm Btl -] Quetiapine Fumarate [Seroquel -] 50 mg PO HS 08/21/18 Amox-Tr/K Cl [Augmentin - 875Mg 1 tab PO BID #14 tablet 08/24/18 Tablet] Prednisone See Taper PO DAILY 12 Days #72 08/24/[address] scan of the chest without intravenous contrast Coronal and sagittal reconstruction images were obtained. Compared to prior CT scan of the chest dated 08/07/2018 Previously visualized right paratracheal/precarinal mass is again seen measuring 3 x 2.6 cm in transverse and AP dimension without significant interval change. A couple of other right paratracheal lymph nodes are present with the largest measuring 1.5 x 1 1 cm. The nory are not enlarged. The heart is within normal limits in size. Calcification of the coronary arteries are present. Status post aortic valve replacement. There is interval airspace disease with consolidation in the right middle lobe as well as interstitial and airspace opacities in the right lower lobe suggestive of pneumonia. Intervals focal opacity in the left lower lobe suggestive of infiltrates. Previously visualized 4 mm calcified granuloma the right lower lobe , posteriorly is again seen. No pneumothorax or pleural effusion identified. Moderate centrilobular emphysema again noted mainly in the right upper lobe. Included upper abdomen again demonstrates a few small gallstones. There is a punctate nonobstructing left renal upper pole stone. 3 mm calcific density in the right renal hilum that may represent vascular calcification versus a nonobstructing stone. Visualized osseous structures appear intact with mild degenerative changes and anterior spondylosis in the lower thoracic spine IMPRESSION: Interval airspace disease with consolidation, mild air bronchogram and mild bronchiectasis in the right middle lobe as well as patchy interstitial and airspace opacities in the right lower lobe suggestive of pneumonia. There is also focal opacity in the left lower lobe suggestive of infiltrates. Follow- up CT scan of the chest in one to 2 weeks is recommended to assess for change and to rule out underlying pathology. Reported By: Patricio Sampson MD 12/05/18 1021 ASSESSMENT AND PLAN: Patient is a 63yo gentleman with h/o Lung cancer s/p R lobectomy, Lthyroid cancer, and renal cancer s/p L nephrectomy, DM, h/o opioid use on methadone, severe , s/p TVAR, Systolic CHF, Mediastinal mass, currently on chemo and radiation , who presented with fever, cough , and was found ot have RLL PNA # BL Pneumonia : patient is discharged home on po Augmentin 875mg po bid s/p iv antibiotic: cefepime and vanco, and doxy. As per ID. patient can be discharged home as per ID on po antibiotics. Negative legionella Ag and pneumonia. CT of chest as above . # Acute Hyponatremia improved 138 today , due to volume depletion: decreased po intake. # H/o systolic heart failure: last echo 07/05 reviewed. mildly reduced EF. severe , avoid hypovolemia. # CP: resolved. not sure of etiology. EKG with L axis , incomplete LBBB, 1st degree AV block . trop nl x 1. no suspicion for ACS. # normocytic anemia: likely due to iron deficinecy ; folic/B12 levels are within normal levels continue iron supplement. Laboratory Tests 08/21/18 08/21/18 05:20 05:20 Iron 13 L TIBC 197 L Iron Saturation 7 L Ferritin 248.0 # Thrombocytopenia ; due to chemo. monitor # DM : SSI . hold po meds DVT PX : SCDs, heparin is on hold since patient had an episode of hemoptysis ( 1 teaspoon)
== END 2018-08-24 14:15 | disposition home or self-care (01) | DRG 194 ==
LOC: JER 16:38 → JERBED 19:24 → J8W 08-21 09:29
PROVIDERS: ADMIT Internal Medicine; ATTEND Internal Medicine
DX: J18.9 Pneumonia, unspecified organism (principal); C34.90 Malignant neoplasm of unspecified part of unspecified bronchus or lung; I50.22 Chronic systolic (congestive) heart failure; F11.20 Opioid dependence, uncomplicated; E87.1 Hypo-osmolality and hyponatremia; D61.818 Other pancytopenia; R04.2 Hemoptysis; E11.9 Type 2 diabetes mellitus without complications; I10 Essential (primary) hypertension; Z90.5 Acquired absence of kidney; Z95.4 Presence of other heart-valve replacement; E78.5 Hyperlipidemia, unspecified; Z87.891 Personal history of nicotine dependence; Z79.84 Long term (current) use of oral hypoglycemic drugs; Z85.850 Personal history of malignant neoplasm of thyroid; Z85.528 Personal history of other malignant neoplasm of kidney; Z86.73 Personal history of transient ischemic attack (TIA), and cerebral infarction without residual deficits; J44.9 Chronic obstructive pulmonary disease, unspecified; I35.0 Nonrheumatic aortic (valve) stenosis; D69.6 Thrombocytopenia, unspecified; D64.81 Anemia due to antineoplastic chemotherapy; I44.0 Atrioventricular block, first degree; D50.9 Iron deficiency anemia, unspecified
CPT/HCPCS: 36415; 71045-TC-FY; 71250-TC; 80048; 80053; 81003; 81015; 82607; 82728; 82746; 82803; 82962; 83540; 83550; 83605; 83735; 84100; 84484; 85025; 85027; 85044; 85610; 85730; 86738; 87040; 87070; 87077; 87086; 87109; 87205; 87804; 87899; 93005; 93010; 99285-25; G0480; J0131; J7030

== ENCOUNTER 2018-09-15 11:35 | Inpatient (IN) | payer OTHER ==
--- NOTE | 2018-09-15 12:01 | PDOC ---
History of Present Illness - General Chief Complaint: Respiratory Stated Complaint: SENT BY PCP R/O PNE Time Seen by Provider: 09/15/18 12:01 - History of Present Illness Initial Comments: 09/15/18 12:27 The patient is a 63 year old male with a PMH of Lung CA (s/p radiation, currently undergoing chemotherapy, last treatment early 08/2018), RCC, NIDDM, HTN and COPD (not on home O2) who presents to our ED c/o 2-3 day h/o shortness of breath. Endorses intermittent productive cough (baseline) as well as subjective fevers. Notes decreased appetiite 2/2 to his symptoms with a 110 pound weight loss over the last 1 year. Denies chest pain. Patient hospitalized earlier this month for PNA and states he completed his entire prescribed antibiotic course. Denies any leg swelling, recent travel/ immobilization. The patient denies any chills, nausea/vomiting, diarrhea/constipation, dysuria/ hematuria. Allergy: patient denies, but as per EMR Azithromycin Surgical: L renal radiofrequency ablation, Aortic Valve replacement Social: current smoker, denies other toxic habits PMD: Dr. Key As per EMR patient admitted in our facility 06/20/18-06/25/18 for COPD Exacerbation, presumptive PNA. S/p Levaquin and steroids. CT chest was negative for PE, however showed multiple lung nodules. Past History - Past Medical History Allergies/Adverse Reactions: Allergies Allergy/AdvReac Type Severity Reaction Status Date / Time azithromycin AdvReac Verified 09/15/18 11:48 Home Medications: Ambulatory Orders Albuterol 2.5/Ipratropium 0.5 [Duoneb -] 1 neb IH QID 09/15/18 Aspirin [ASA -] 81 mg PO DAILY 09/15/18 Glipizide 5 mg PO DAILY 09/15/18 Lisinopril 10 mg PO DAILY 09/15/18 Metformin HCl [Metformin HCl ER] 1,000 mg PO BID 09/15/18 Methadone [Dolophine -] 120 mg PO DAILY 09/15/18 Multivitamins [Tab-A-Vit -] 1 tab PO DAILY 09/15/18 Simvastatin 40 mg PO HS 09/15/18 Anemia: Yes Asthma: No Cancer: Yes (Lung, kidney, lymph nodes) Cardiac Disorders: Yes (valve replacement 2017) CVA: Yes (2010) COPD: Yes CHF: No DVT: No Dementia: No Diabetes: Yes GI Disorders: No Disorders: No HTN: Yes Hypercholesterolemia: Yes Liver Disease: No Seizures: No Thyroid Disease: No - Surgical History Abdominal Surgery: No Appendectomy: No Cardiac Surgery: Yes (heart valve replaced) Cholecystectomy: No Lung Surgery: Yes (part of lung removed due to cancer) Orthopedic Surgery: No - Suicide/Smoking/Psychosocial Hx Smoking History: Former smoker Have you smoked in the past 12 months: No Number of Cigarettes Smoked Daily: 20 If you are a former smoker, when did you quit?: 06/19/2018 Information on smoking cessation initiated: No 'Breaking Loose' booklet given: 08/21/18 Hx Alcohol Use: No Drug/Substance Use Hx: Yes (methandone program) Substance Use Type: None Hx Substance Use Treatment: Yes Review of Systems - Review of Systems Constitutional: Yes: Fever HEENTM: No: Blurred Vision, Double Vision Respiratory: Yes: Cough, Shortness of Breath. No: Orthopnea, Wheezing Cardiac (ROS): No: Chest Pain, Lightheadedness, Palpitations, Syncope ABD/GI: No: Constipated, Diarrhea, Nausea, Vomiting : No: Burning, Dysuria *Physical Exam - Vital Signs Last Vital Signs Temp Pulse Resp BP Pulse Ox 98.7 F 114 H 20 130/63 77 L 09/15/18 11:45 09/15/18 11:45 09/15/18 11:45 09/15/18 11:45 09/15/18 11:45 - Physical Exam General Appearance: Yes: Nourished, Appropriately Dressed HEENT: positive: Normal Voice, Hearing Grossly Normal Neck: positive: Trachea midline, Supple Respiratory/Chest: positive: Lungs Clear, Normal Breath Sounds, Rapid RR. negative: Rhonchi, Stridor Cardiovascular: positive: S1, S2. negative: Edema, JVD Vascular Pulses: Dorsalis-Pedis (R): 2+, Doralis-Pedis (L): 2+ Gastrointestinal/Abdominal: positive: Tender, Soft Moderate Sedation - Procedure Monitoring Vital Signs: Procedure Monitoring Vital Signs Temperature 98.7 F 09/15/18 11:45 Pulse Rate 114 H 09/15/18 11:45 Respiratory Rate 20 09/15/18 11:45 Blood Pressure 130/63 09/15/18 11:45 O2 Sat by Pulse Oximetry (%) 77 L 09/15/18 11:45 Procedures - Central Line Central Line Lumen: triple Central Line Position: internal jugular (R) Anesthesia: 1% Lidocaine Post Central Line Insertion: sutured Progress: 09/15/18 19:42 CXR showed kinked line outside of vessel (blood retracted post insertion so suspect line became displaced during suturing) Heart Score/ECG Review - ECG Impressions Comment:: 09/15/18 19:27 Sinus Tachycardia (HR 118), no BRENNAN/STD/TWI - non-ischemic ECG ED Treatment Course - LABORATORY CBC & Chemistry Diagram: 09/16/18 07:00 09/16/18 07:00 Medical Decision Making - Medical Decision Making 09/15/18 12:30 63 year old male w/shortness of breath. Hypoxic (70's-80's) at presentation. Coarse breath sounds B/L. Frontal diagnosis: r/o PE, r/o ACS, COPD exacerbation , PNA, new onset CHF. Will obtain Chest CT, EKG, Troponin x1, BNP, as well as blood cultures-- the latter as patient likely to require abx. 09/15/18 13:48 Cr 1.0 - will send patient to CTA to r/o PE WBC 12.0 Hyponatremic (Na 130) Troponin (-), ECG non-ischemic CXR ordered erroneously. CT pending. 09/15/18 14:03 BNP 4933 (previous BNP 1985.7) 09/15/18 14:42 Influenza Negative Clinical suspicion for HCAP. Will administer Zosyn. Will admit patient for further evaluation. 09/15/18 19:21 IV infiltrated @ CT; central line placed, received flashback, however confirmatory X-ray showed looped central line, not in vessel. Will admit to hospitalist for presumptive PNA + elevated BNP (new onset CHF); CT pending SpO2 90's on Ventimask. ABG pending Patient admitted to hospitalist for further evaluation. Hospitalist @ bedside, patient may require elevation to ICU care pending CT Chest 09/15/18 23:25 CT pending; patient transferred to inpatient medicine floor. *DC/Admit/Observation/Transfer Diagnosis at time of Disposition: Shortness of breath - Discharge Dispostion Condition at time of disposition: Fair Decision to Admit order: Yes - Referrals - Patient Instructions - Post Discharge Activity
[2018-09-15 12:58] LABS: BASO % 0.2 % (0-2.0); HEMATOCRIT 25.8 % (35.4-49); HEMOGLOBIN 8.4 GM/dL (11.7-16.9); LYMPH % 0.9 % (8-40); MCH 29.7 pg (25.7-33.7); MCHC 32.4 g/dl (32.0-35.9); MEAN CELL VOLUME 91.6 fl (80-96); MEAN PLT VOLUME 9.5 fl (7.5-11.1); MONO % 0.9 % (3.8-10.2); PLATELET COUNT 136 K/MM3 (134-434); RBC 2.82 M/mm3 (4.00-5.60); RDW 19.9 % (11.9-15.9)
[2018-09-15 13:29] LABS: ALK PHOS 97 U/L (45-117); ANION GAP 9 MMOL/L (8-16); BILIRUBIN,TOTAL 0.7 mg/dL (0.2-1); BLOOD UREA NITROGEN 29 mg/dL (7-18); CALCIUM 7.7 mg/dL (8.5-10.1); CHLORIDE 93 mmol/L (98-107); CO2 29 mmol/L (21-32); GLUCOSE,RANDOM 157 mg/dL (74-106); N-TERMINAL BNP 4933.4 pg/ml (5-125); POTASSIUM 4.7 mmol/L (3.5-5.1); SGOT/AST 36 U/L (15-37); SGPT/ALT 20 U/L (13-61); SODIUM 131 mmol/L (136-145); TOT PROT 5.3 g/dl (6.4-8.2)
[2018-09-15 14:13] LABS: ANISOCYTOSIS 1+; MACROCYTOSIS 0; PLATELET ESTIMATE DECREASED
--- NOTE | 2018-09-15 15:34 | PDOC ---
Attending Attestation - HPI HPI: 09/15/18 15:35 The patient is a 63 year old male with a significant past medical history of lung ca, diabetes, hypertension and COPD who presents to the emergency department with chest pain for about 4 days. The patient reports that this morning he felt his chest pain after he got out of bed at 7 am. He describes his chest pain as right sided and lasting about 5-10 minutes at a time. The patient reports associated shortness of breath and non-productive cough. The patient also reports a subjective fever at home. The patient reports that he was seen in the hospital earlier this month for pneumonia by which he was treated with antibiotics. As per the patient's at bedside, the patient recently finished radiation and, he has 2 more rounds of chemo to do. The patient denies any other symptoms. He denies any chills, nausea, vomiting, diarrhea, constipation or urinary symptoms. He denies any headache or dizziness. The patient denies any other complaints. Documentation prepared by Azra Rosario, acting as chief medical director for Angélica Wooten MD. <Azra Rosario - Last Filed: 09/15/18 15:35> - Resident Resident Name: Brenda Meza - [facility] HPI: I Dr. Angélica Wooten,attest that the scribes documentation that appears above has been prepared under my direction and personally reviewed buy me. 09/15/18 22:13 - Physicial Exam PE: 09/15/18 22:16 63 y/o male seen and examined at bedside. Pt is slightly flushed and ill appearing.on oxygen with pulse oximeter flutuating from 85% to 96% on nasal canula HEENT: NCAT ERROL Neck: supple Lungs + bs tato cta Heart: S1S2 tachycardic Abd: + bs abd soft no guarding or tenderness Ext : no edema Neuro: alert and oriented x3, nickerson's no focal deficits 09/15/18 22:19 - Critical Care Time Total Critical Care Time: 30 (Time spent inserting CVL, speaking with family) Critical Care Statement: The care of this patient involved high complexity decision making to prevent further life threatening deterioration of the patient 's condition and/or to evaluate & treat vital organ system(s) failure or risk of failure. - Medical Decision Making 09/15/18 22:21 63 y/o male with complex medical history including but not limited to lung cancer receiving treatment and recent hospitalization 08-24-18 for pneumonia. Pt presents to ED c/o rt side chest pain earlier today, sob and tactile fever. Pt noted to have tachycardia and variable oxygen levels.CXR positive for congestion and rt sided mass. Pt's labs noted and pt with elevated bnp,elevated wbc with left shift and subjective fevers, although he eventually spiked a fever in the ED. Differential diagnosis includes but is not limited to: pneumonia,Pulm embolism, chf excerbation. Cta of chest was ordered to r/o Pulm embolism, pt was in Catscan and IV infiltrated but pt received about 90ml of contrast. warm compreses applied to forearm where IV infiltrated.Resident after explaining procedure obtained consent for central line in order to obtain IV access and complete cta. Using sterile technique and sonogram guided central line was inserted without complication.Intially blood was aspirated from two of the three ports f the CVL and line was then sutured in place.After suturing no blood could be aspirated from any port,, XRAy obtained no PTX but line was coiled and not in place.Line was removed. Pt given broad spectrum antibiotics after cultures to treat presumed pneumonia. Will monitor closely and reassess need for CTA after treatment with meds. Pt agreable to faheem, pt admitted to hospitl. 09/15/18 22:28 <Angélica Wooten - Last Filed: 09/15/18 22:36>
[2018-09-15] MEDS ORDERED: ACETAMINOPHEN 500 MG TABLET (FP) PO ONE (16:46)
[2018-09-15] MEDS ORDERED: ACETAMINOPHEN 325 MG TABLET (FP) ONE (18:55)
[2018-09-15] MEDS ORDERED: PIPERACILLIN/TAZOB 4.5 GM 4.5 GM in DEXTROSE 5%-WATER 100 ML IVPB ONE (19:24)
[2018-09-15 19:41] LABS: ARTERIAL BLD GAS O2 SATURATION 78.8 % (90-98.9); ARTERIAL BLOOD GAS PCO2 43.7 mmHg (35-45); ARTERIAL BLOOD GAS pH 7.44 (7.35-7.45); CARBOXYHEMOGLOBIN 1.4 gm% (0.5-2.0)
[2018-09-15 19:42] LABS: ALLENS TEST POSITIVE
[2018-09-15 19:45] LABS: ARTERIAL BLOOD GAS PO2 47.6 mmHg (80-100)
[2018-09-15] MEDS ORDERED: PIPERACILLIN/TAZOB 4.5 GM 4.5 GM/100 ML BAG IVPB ONE (20:36)
--- NOTE | 2018-09-15 20:47 | PN ---
Teaching Attending Note Name of Resident: Jose Roberto King ATTENDING PHYSICIAN STATEMENT I saw and evaluated the patient. I reviewed the resident's note and discussed the case with the resident. I agree with the resident's findings and plan as documented. SUBJECTIVE: Seen and examined; please see resident note for further historical documentation. Briefly, this is a 63 y/o male with a complex PMH as disucssed who presents for fevers, SOB. He has had these fevers and worsening SOB with cough for the past week and nothing makes it better or worse, similar to past PNAs. He was discharged 1 week ago from this hospital for HAP where he was seen by Dr. Novoa's service. Today he presents with much of the same sx, but is noted to have elevated BNP as well. He is sweaty, tachycardic (did resolve with fluids given in the ER), hyponatremic, and has a large relative leukocytosis with bandemia and left shift. ABG shows severe hypoxic respiratory failure with metabolic compensation. He will be admitted to the medicine service with ID consultation and Cardiology consultation. Prognosis is quite guarded given his complex presentation and underlying medical comorbidities. 10 sys ROS done and negative aside from HPI PMH and PSH reviewed (Lung CA s/p lobectomy (R), Thyroid CA, Mediastinal Mass, opiate use on methadone, severe s/p TAVR, Recent HAP, Mild Systolic CHF, Chronic thromocytopenia, hemoptysis) FH asked and noncontributory Socially he is maintained on methadone; no current EtOH or tobacco abuse OBJECTIVE: VS, labs, imaging reviewed Mild distress, AAO, on NRB RRR s1/2 3/6 systolic murmur no gallops or rubs Lungs with b/l rales and scattered crackles NT ND +BS CN2-12 wnl, no fnd Labs show hypoxic RF with metabolic compensation and normal pH on ABG, WBC 13, h /h at baseline plts 136, Na 131, normal Cr, albumin 2.0, BNP 4900, negative troponin, negative LFTs, negative influenza CT chest pending CXR reviewed EKG reviewed Echo 2018 reviewed ASSESSMENT AND PLAN: Mr. Gutierrez presents with acute hypoxic respiratory failure
[2018-09-15] MEDS ORDERED: VANCOMYCIN 1,000 MG in DEXTROSE 5%-WATER - 250 ML IVPB ONE (21:15)
--- NOTE | 2018-09-15 21:39 | HP ---
CHIEF COMPLAINT: fevers, sob PCP: [facility] Oncologist: Dr. Jhon at [facility] RadOnc: Dr. Dove at [facility] HISTORY OF PRESENT ILLNESS: 63 yr old man with a HTN, DM II, COPD, methadone maintanence therapy, s/p TAVR, hx of throat, lung and kidney cancer currently undergoing radiation and chemotherapy for his lung cancer at [facility] presents with fevers and dyspnea for past week, progressively worsening. Dyspnea is worse on exertion. a/w productive cough in the morning consisting of white plegm, rarely blood tinged and nonradiating intermittent mid substernal pain where he received radiation. tried to take tylenol for fever without improvement. Last radiation therapy was about 2 weeks ago. He was recently at [facility] being treated for pneumonia. BGM's for last 3 days have been ranging 60-200'sm unusual for him, as he is normally controlled. Denies abdominal pain, diarrhea, constipation, hemoptysis, hematochezia, easy bruising/bleeding, palpitations. and patient deny recent prednisone use ER course was notable for: (1) chest CT w/ contrast (2) (3) Recent Travel: none PAST MEDICAL HISTORY: HTN, NIDMII, methadone mtx @ [facility] PAST SURGICAL HISTORY: TAVR Social History: Smoking: former Alcohol: former Drugs: former Family History: [place] Allergies azithromycin Adverse Reaction (Verified 09/15/18 11:48) HOME MEDICATIONS: Home Medications Medication Instructions Recorded Lisinopril [Prinivil] 10 mg PO DAILY 04/15/16 Metformin HCl [Glucophage] 1,000 mg PO BID 04/15/16 Multivitamins [Multivit ([facility] 1 tab PO DAILY 04/15/16 Formulary)] Aspirin [Aspirin EC] 81 mg PO DAILY #0 04/18/16 Glipizide [Glipizide ER] 5 mg PO DAILY 06/20/18 Methadone 120 mg PO DAILY 06/20/18 Simvastatin 40 mg PO HS 06/20/18 Albuterol 2.5/Ipratropium 0.5 1 amp NEB Q4H PRN #25 vial 06/25/18 [Duoneb -] Albuterol Sulfate Inhaler - 2 puff IH Q4H PRN #1 inh 06/25/18 [Ventolin HFA Inhaler -] Nebulizer [Compact Compressor 1 each NR ASDIR PRN #1 kit 06/25/18 Nebulizer] Polyethylene Glycol 3350 [Miralax 17 gm PO BID bottle 06/25/18 119 gm Btl -] Quetiapine Fumarate [Seroquel -] 50 mg PO HS 08/21/18 Amox-Tr/K Cl [Augmentin - 875Mg 1 tab PO BID #14 tablet 08/24/18 Tablet] Prednisone See Taper PO DAILY 12 Days #72 08/24/18 tablet REVIEW OF SYSTEMS CONSTITUTIONAL: Present: fever,diaphoresis,loss of appetite, Absent: chills, generalized weakness, malaise, weight change HEENT: Absent: rhinorrhea, nasal congestion, throat pain, throat swelling, difficulty swallowing, mouth swelling, ear pain, eye pain, visual changes CARDIOVASCULAR: Present: tachycardia Absent: chest pain, syncope, palpitations, irregular heart rate, lightheadedness , peripheral edema RESPIRATORY: Present: cough, shortness of breath Absent: dyspnea with exertion, orthopnea, wheezing, stridor, hemoptysis GASTROINTESTINAL: Absent: abdominal pain, abdominal distension, nausea, vomiting, diarrhea, constipation, melena, hematochezia GENITOURINARY: Absent: dysuria, frequency, urgency, hesitancy, hematuria, flank pain MUSCULOSKELETAL: Absent: myalgia, arthralgia, joint swelling, back pain, neck pain SKIN: Absent: rash, itching, pallor HEMATOLOGIC/IMMUNOLOGIC: Present: frequent infections Absent: easy bleeding, easy bruising, lymphadenopathy, ENDOCRINE: Absent: unexplained weight gain, unexplained weight loss, heat intolerance, cold intolerance NEUROLOGIC: Absent: headache, focal weakness or paresthesias, dizziness, unsteady gait, seizure, mental status changes, PHYSICAL EXAMINATION Vital Signs - 24 hr 09/15/18 09/15/18 09/15/18 11:45 12:05 16:44 Temperature 98.7 F 101.1 F H Pulse Rate 114 H 103 H Pulse Rate [ 118 H Right] Respiratory 20 24 H Rate Blood Pressure 130/63 Blood Pressure 129/57 L [Right Arm] O2 Sat by Pulse 77 L 96 86 L Oximetry (%) GENERAL: Awake, alert, and fully oriented, in no mild distress, sweating, able to answer in full sentences, breathing comfortably HEAD: Normal with no signs of trauma. EYES: Pupils equal, round and reactive to light, extraocular movements intact, mildy sclera icteric, conjunctiva clear. No lid lag. EARS, NOSE, THROAT: Ears normal, nares patent, oropharynx clear without exudates /erythema. no teeth. Moist mucous membranes. NECK: Normal range of motion, supple without lymphadenopathy, JVD, or masses. LUNGS: fine crackles at b/l bases R worse than left. HEART: Regular rate and rhythm, normal S1 and S2 without murmur, rub or gallop. ABDOMEN: Soft, nontender, not distended, normoactive bowel sounds, no guarding, no rebound, no masses. MUSCULOSKELETAL: Normal range of motion at all joints. No bony deformities or tenderness. No CVA tenderness. UPPER EXTREMITIES: 2+ radial pulses, warm, well-perfused. No cyanosis. No clubbing. No peripheral edema. LOWER EXTREMITIES: 2+ DP pulses, warm, well-perfused. No calf tenderness. No peripheral edema. NEUROLOGICAL: Cranial nerves II-XII intact. Normal speech. facial symmetry. moving all extermities without difficulty PSYCHIATRIC: Cooperative. Good eye contact. Appropriate mood and affect. SKIN: Warm, dry, normal turgor, no rashes or lesions noted, normal capillary refill. Laboratory Results - last 24 hr 09/15/18 09/15/18 09/15/18 12:30 12:30 12:30 WBC 13.0 H RBC 2.82 L Hgb 8.4 L Hct 25.8 L MCV 91.6 MCH 29.7 MCHC 32.4 RDW 19.9 H Plt Count 136 MPV 9.5 D Absolute Neuts (auto) 12.7 H Neutrophils % 98.0 H Neutrophils % (Manual) 85.9 H Band Neutrophils % 12.1 Lymphocytes % 0.9 L Lymphocytes % (Manual) 1.0 L Monocytes % 0.9 L Monocytes % (Manual) 1 L Eosinophils % 0.0 Eosinophils % (Manual) 0.0 Basophils % 0.2 Basophils % (Manual) 0.0 Myelocytes % (Man) 0 Promyelocytes % (Man) 0 Blast Cells % (Manual) 0 Nucleated RBC % 0 Metamyelocytes 0 Hypochromia 0 Platelet Estimate Decreased Polychromasia 1+ Poikilocytosis 0 Anisocytosis 1+ Macrocytosis 0 Anticoagulation Therapy Puncture Site ABG pH ABG pCO2 at Pt Temp ABG pO2 at Pt Temp ABG HCO3 ABG O2 Sat (Measured) ABG O2 Content ABG Base Excess Jose Test Carboxyhemoglobin Methemoglobin O2 Delivery Device Oxygen Flow Rate Vent Mode Vent Rate Mechanical Rate Pressure Support Vent Sodium 131 L Potassium 4.7 Chloride 93 L Carbon Dioxide 29 Anion Gap 9 BUN 29 H Creatinine 1.0 Creat Clearance w eGFR > 60 Random Glucose 157 H Lactic Acid Calcium 7.7 L Total Bilirubin 0.7 AST 36 ALT 20 Alkaline Phosphatase 97 Creatine Kinase 58 Troponin I 0.03 B-Natriuretic Peptide 4933.4 H Total Protein 5.3 L Albumin 2.0 L Influenza A (Rapid) Negative Influenza B (Rapid) Negative 09/15/18 09/15/18 12:31 19:30 WBC RBC Hgb Hct MCV MCH MCHC RDW Plt Count MPV Absolute Neuts (auto) Neutrophils % Neutrophils % (Manual) Band Neutrophils % Lymphocytes % Lymphocytes % (Manual) Monocytes % Monocytes % (Manual) Eosinophils % Eosinophils % (Manual) Basophils % Basophils % (Manual) Myelocytes % (Man) Promyelocytes % (Man) Blast Cells % (Manual) Nucleated RBC % Metamyelocytes Hypochromia Platelet Estimate Polychromasia Poikilocytosis Anisocytosis Macrocytosis Anticoagulation Therapy No Result Required. Puncture Site Right radial ABG pH 7.44 ABG pCO2 at Pt Temp 43.7 ABG pO2 at Pt Temp 47.6 L* ABG HCO3 29.2 H ABG O2 Sat (Measured) 78.8 L ABG O2 Content 11.4 L ABG Base Excess 5.0 H Jose Test Positive Carboxyhemoglobin 1.4 Methemoglobin 0.0 L O2 Delivery Device Nasal Oxygen Flow Rate 4.5l Vent Mode No Result Required. Vent Rate No Result Required. Mechanical Rate No Result Required. Pressure Support Vent No Result Required. Sodium Potassium Chloride Carbon Dioxide Anion Gap BUN Creatinine Creat Clearance w eGFR Random Glucose Lactic Acid 2.0 Calcium Total Bilirubin AST ALT Alkaline Phosphatase Creatine Kinase Troponin I B-Natriuretic Peptide Total Protein Albumin Influenza A (Rapid) Influenza B (Rapid) ASSESSMENT/PLAN: 63 yr old man with HTN, HLD, DMII, COPD, methadone maintenance therapy, hx of multiple malignancies(lung/throat/kidney), s/p TAVR admitted for acute hypoxic respiratory distress likely due to pneumonia(seen on Chest CT) and acute exacerbation of COPD. #acute respiratory distress with respiratory acidosis - improved on nonrebreather, plan to titrate down oxygen use as tolerated. - DuoNeb nebs 1amp RQID - Oxygen to maintain saturation >90% via venti mask 50% and then nasal cannula as tolerated - started patient on vanc and zosyn for broad spec coverage for HAP in immunocompromised patient - Chest ct w. contrast pending official read - consult ID for input on abx therapy - urine ag for pna pending, bld and ucx pending, flu negative, #Chronic systolic heart failure - elevated BNP, concerned about acute exacerbation vs alternative cause of BNP elevation - Cardiology consulted for input given multiple co-morbidities and concern for diuresis with elevated BNP - Echo shows mildly dilated LV, mildly reduced LV function, severe - on #HTN - Lisinopril 10mg po daily #Hyperlipidemia - Continue Lipitor 20mg #DM II - home medications Metformin, glipizide held - Continue Novolog sliding scale with BGMs # Continue Methadone for methadone maintenance therapy/hx of substance abuse # Lung Ca - followed at [facility] #chronic normocytic anemia - iron panel on 08/21/2018, likely JASMIN #hyponatremia - check urine sodium and serum osmolality to evaluate cause DVT: heparin TID Diet: diabetic/low sodium diet activity: encourage ambulation as tolerated Healthcare proxy is his daughter, pt verbally indicated that he would want his daughter to be his HCP, present. discussed possibility of requiring bipap or intubation if respiratory status does not improve, pt is unsure about intubation, would like to think about it. as per the family has never has advance directive conversation in the past, neither nor patient is sure about what he would want to do. pt does not wish to discuss advanced directives at this time declined HIV testing Visit type - Emergency Visit Emergency Visit: Yes ED Registration Date: 09/15/18 Care time: The patient presented to the Emergency Department on the above date and was hospitalized for further evaluation of their emergent condition. - New Patient This patient is new to me today: Yes Date on this admission: 09/15/18 - Critical Care Critical Care patient: No
[2018-09-15] MEDS ORDERED: ALBUTEROL SO4 2.5/IPRATROPIUM 0.5 INH SOL 3 ML VIAL.NEB. NEB PRN (22:15)
[2018-09-15] MEDS ORDERED: ALBUTEROL SO4 8 GM HFA INHALER IH PRN (22:15)
[2018-09-15 22:28] LABS: ARTERIAL BLD GAS O2 SATURATION 99.1 % (90-98.9); ARTERIAL BLOOD GAS BASE EXCESS 4.2 meq/l (-2-2); ARTERIAL BLOOD GAS PCO2 36.9 mmHg (35-45); ARTERIAL BLOOD GAS pH 7.48 (7.35-7.45)
[2018-09-15 22:30] LABS: ALLENS TEST POSITIVE
[2018-09-15 23:16] LABS: URINE APPEARANCE CLEAR; URINE BILIRUBIN NEGATIVE (<2.0 mg/dL); URINE COLOR YELLOW; URINE GLUCOSE (UA) NEGATIVE (NEGATIVE); URINE KETONE NEGATIVE (NEGATIVE); URINE LEUK ESTERASE NEGATIVE (NEGATIVE); URINE NITRITE NEGATIVE (NEGATIVE); URINE PROTEIN 1+ (NEGATIVE); URINE UROBILINOGEN 4.0 E.U/dl mg/dL (0.2-1.0)
[2018-09-15 23:24] LABS: EPI CELLS RARE /HPF (FEW)
[2018-09-15] MEDS ORDERED: VANCOMYCIN 1 GRAM (PRE-DOCKED) 1,000 MG/250 ML BAG IVPB ONE (23:53)
[2018-09-16] MEDS: HEPARIN NA (PORCINE) 5,000 UNITS/ML 1ML VIAL SQ SCH ×4 (00:52→22:03)
[2018-09-16] MEDS ORDERED: MELATONIN 5 MG TABLETS PO ONE ×2 (00:56→01:30)
[2018-09-16] MEDS: INSULIN SLIDING SCALE (NOVOLOG) 1 VIAL SQ SCH ×4 (06:41→22:04)
[2018-09-16 08:25] LABS: BASO % 0.1 % (0-2.0); EOS % 0.1 % (0-4.5); HEMATOCRIT 23.5 % (35.4-49); HEMOGLOBIN 7.4 GM/dL (11.7-16.9); LYMPH % 0.9 % (8-40); MCH 28.8 pg (25.7-33.7); MCHC 31.6 g/dl (32.0-35.9); MEAN CELL VOLUME 91.1 fl (80-96); MEAN PLT VOLUME 8.1 fl (7.5-11.1); MONO % 1.6 % (3.8-10.2); NEUT % 97.3 % (42.8-82.8); PLATELET COUNT 97 K/MM3 (134-434); RBC 2.58 M/mm3 (4.00-5.60); RDW 20.2 % (11.9-15.9); WHITE BLOOD COUNT 13.6 K/mm3 (4.0-10.0)
[2018-09-16 08:39] LABS: INR 1.35 (0.83-1.09)
[2018-09-16 08:42] LABS: ACTIVATED PTT 29.2 SECONDS (25.2-36.5)
[2018-09-16 08:46] LABS: ALBUMIN 1.6 g/dl (3.4-5.0); ALK PHOS 82 U/L (45-117); ANION GAP 8 MMOL/L (8-16); BLOOD UREA NITROGEN 29 mg/dL (7-18); CALCIUM 7.8 mg/dL (8.5-10.1); CHLORIDE 94 mmol/L (98-107); CO2 30 mmol/L (21-32); CREATININE 0.9 mg/dL (0.55-1.3); GLUCOSE,RANDOM 79 mg/dL (74-106); MAGNESIUM 2.2 mg/dL (1.8-2.4); PHOSPHOROUS 4.6 mg/dL (2.5-4.9); POTASSIUM 4.4 mmol/L (3.5-5.1); SGOT/AST 30 U/L (15-37); SGPT/ALT 19 U/L (13-61); SODIUM 131 mmol/L (136-145); TOT PROT 4.5 g/dl (6.4-8.2)
[2018-09-16] MEDS ORDERED: LISINOPRIL 10 MG TABLET (FP) PO SCH (10:00)
[2018-09-16 10:05] LABS: ANISOCYTOSIS 1+; MACROCYTOSIS 0; PLATELET ESTIMATE DECREASED
[2018-09-16] MEDS ORDERED: METHADONE HCL 40 MG DISPERSABLE TABLET ONE (10:46)
[2018-09-16] MEDS: METHADONE HCL 40 MG DISPERSABLE TABLET PO SCH (10:51)
[2018-09-16] MEDS: LISINOPRIL 10 MG TABLET (FP) PO SCH (10:52)
[2018-09-16] MEDS: MULTIVITAMINS (DAILY MVI) TABLET (FP) PO SCH (10:52)
[2018-09-16] MEDS ORDERED: VANCOMYCIN 1,000 MG in DEXTROSE 5%-WATER - 250 ML IVPB SCH (11:15)
[2018-09-16] MEDS ORDERED: VANCOMYCIN 1,250 MG in DEXTROSE 5%-WATER - 250 ML IVPB SCH (11:15)
--- NOTE | 2018-09-16 11:26 | EKG ---
Test Reason : Blood Pressure : / mmHG Vent. Rate : 118 BPM Atrial Rate : 118 BPM P-R Int : 136 ms QRS Dur : 128 ms QT Int : 346 ms P-R-T Axes : 051 -16 091 degrees QTc Int : 484 ms SINUS TACHYCARDIA NON-SPECIFIC INTRA-VENTRICULAR CONDUCTION BLOCK ABNORMAL QRS-T ANGLE, CONSIDER PRIMARY T WAVE ABNORMALITY ABNORMAL ECG WHEN COMPARED WITH ECG OF 20-AUG-2018 18:21, NO SIGNIFICANT CHANGE WAS FOUND Confirmed by CORA MCKEON MD ([id number]) on 09/16/2018 11:26:25 AM Referred By: Confirmed By:CORA MCKEON MD
--- NOTE | 2018-09-16 11:31 | PN ---
Progress Note (short form) - Note Progress Note: ID consult dictated imp/reccd hypoxemic resp failure extensive pneumonia bacteremia s/p tavr lung cancer not neutropenic 63 yo man known history of lung cancer completed radiation min August, last chemo first week August admitted with sob, increased cough, fever and weakness for last 4 to 5 days he has been hospitalized June 20 to (positive pneumococcal antigen) treated with levaquin, 08/20 to 08/24- vanco/cefempime discharged on augmentin for one week (negative pneumococcal antigen) now readmitted with the above chest xray and ct with extensive right sided infiltrates he is hypoxic does not use oxygen at home history of TAVR prior RCC with partial nephrectomy 2016 reports he is hiv and hep c negative on methadone influenza negative now with positive blood culture for probable staph as well as positive pneumococcal antigen- has had positive antigen before- is this real? would continue vanco/zosyn repeat blood culture sputum culture f/u blood culture continue ventimask history lung cancer-is some component of his infiltrates malignancy- appears progressive since June- would he benefit from bronch suggest pulmonary evaluation ?radiation pneumonitis history of copd s/p tavr- now positive blood culture!, repeat and check echo history of RCC Problem List - Problems (1) Acute hypoxemic respiratory failure Code(s): J96.01 - ACUTE RESPIRATORY FAILURE WITH HYPOXIA (2) PNA (pneumonia) Code(s): J18.9 - PNEUMONIA, UNSPECIFIED ORGANISM Qualifiers: Pneumonia type: due to unspecified organism Laterality: right Lung location: lower lobe of lung Qualified Code(s): J18.1 - Lobar pneumonia, unspecified organism (3) Bacteremia Code(s): R78.81 - BACTEREMIA (4) Lung cancer Code(s): C34.90 - MALIGNANT NEOPLASM OF UNSP PART OF UNSP BRONCHUS OR LUNG (5) S/P TAVR (transcatheter aortic valve replacement) Code(s): Z95.2 - PRESENCE OF PROSTHETIC HEART VALVE
--- NOTE | 2018-09-16 13:05 | CONS ---
INFECTIOUS DISEASE CONSULT DATE OF CONSULTATION: DATE OF DICTATION: 09/13/2018 REQUESTED BY: Hospitalist Service. HISTORY: This is a 63-year-old man with a history of prior renal cell carcinoma in 2016, history of lung cancer, thyroid cancer, recent mediastinal mass in a radiation therapy which he completed in mid-August. He has a history of aortic stenosis and is status post TAVR as well. He has had 3 admissions. This is his most recent to [facility]. He was admitted in June, from the to for "pneumonia," treated, and COPD exacerbation treated with Levaquin. At that time he had a positive urinary pneumococcal antigen. He was readmitted in August from the to , negative antigen, was treated with vancomycin and cefepime again for pneumonia, had a right-sided infiltrate and was discharged on oral Augmentin, which he says he completed. Should have finished it August 31. He reports he felt better and was doing okay. He finished his chemotherapy. Over the course of the last week, has had progressive weakness, cough, fever, shortness of breath and he came to the emergency room complaining of these symptoms. He says it has been going on for about 4-5 days. He lives at home with his . He reports he has received his flu shot. He has had no sick contacts. His last radiation he reports was early August before his admission to [facility], and he has not had any chemotherapy since. He reports he has 2 more cycles which he has not completed. PAST MEDICAL HISTORY: Notable for hypertension, noninsulin-dependent diabetes. He is on methadone maintenance at [facility]. He reports being HIV and hepatitis C negative. The history of aortic stenosis as well and is status post TAVR at [facility]. His oncologist for his lung cancer is there as well. He has a history he says of throat cancer as well. Prior kidney cancer in 2016 for which he reports a partial left nephrectomy. ALLERGIES: He is allergic to ZITHROMAX. The nature of the allergy is not clear. SOCIAL HISTORY: He is . He lives with his . He is a former smoker. No history currently of any alcohol or substance use. He is on methadone maintenance. MEDICATIONS AT HOME: Include methadone, simvastatin, albuterol, multivitamin, glipizide, aspirin, metformin and lisinopril. REVIEW OF SYSTEMS: He denies vomiting or diarrhea. He has sputum. He denies any hemoptysis. He has white sputum production. PHYSICAL EXAMINATION:Vital Signs: T-Max was 101 in the emergency room. Current temperature is 97.6, pulse of 89, blood pressure 128/60, respiratory rate is 20. He is saturating 97%. He is currently on a Ventimask. HEENT: He is normocephalic. His eyes are anicteric. He has some white patches on his tonsils. He notes dry mouth which he says he has had since the chemotherapy. He denies pharyngitis. Neck: Supple. He has palpable cervical adenopathy bilaterally. Lungs: Have crackles in the entire right lung and at the left base. Heart: Regular rate and rhythm. Abdomen: Soft, nontender. Extremities: Without edema. LABORATORY DATA: White count is 13.6, hemoglobin 7.4, platelets are 97,000. Chemistries: BUN is 29 and creatinine 0.9. LFTs are normal. Albumin is 1.6. His influenza screen is negative. Blood cultures drawn yesterday: One of 4 bottles is growing gram-positive cocci in clusters. Sputum culture is pending. Legionella urinary antigen is negative and he has a positive pneumococcal antigen. CAT scan of his chest was done in the emergency room and reveals extensive pulmonary consolidation that has worsened in the right lung as well as the base of the left. He has extensive mediastinal adenopathy. SUMMARY: This is a 63-year-old man with hypoxemic respiratory failure, extensive pneumonia, bacteremia, positive pneumococcal antigen, status post transcatheter aortic valve replacement (TAVR) and lung cancer. He is not neutropenic. Unclear what to make of the significance of the positive pneumococcal antigen as he had this in the June as well. As well, he has a positive blood culture with a recent admission as well as aortic valve. Would cover him with vancomycin and Zosyn at this time which will certainly cover pneumococcus and staphylococcus. Would repeat blood cultures, obtain an echocardiogram, continue him on Ventimask. Would recommend Pulmonary to see. Of interest, his CAT scans from June to now appear to be progressively worsening. Would wonder if a component of his infiltrates are malignancy as opposed to being infections. When he stabilizes would consider whether he would benefit from bronchoscopy or at least sputum cytology. Further recommendations to follow. Case was discussed with the hospitalist. Mona [id number]
--- NOTE | 2018-09-16 13:41 | PN ---
Progress Note, Physician Chief Complaint: Mr Gutierrez says his breathing is 10% better than yesterday. However still significantly worse than normal. No cp or n/v. - Current Medication List Current Medications: Active Medications Albuterol Sulfate (Ventolin Hfa Inhaler -) 2 puff IH Q4H PRN PRN Reason: SHORT OF BREATH/WHEEZING Albuterol/Ipratropium (Duoneb -) 1 amp NEB Q4H PRN PRN Reason: SHORT OF BREATH/WHEEZING Atorvastatin Calcium (Lipitor -) 20 mg PO [facility] Heparin Sodium (Porcine) (Heparin -) 5,000 unit SQ TID [facility] Last Admin: 09/16/18 05:14 Dose: 5,000 unit Vancomycin HCl 1,250 mg/ (Dextrose) 250 mls @ 166.667 mls/hr IVPB Q12H [facility]; Protocol Piperacillin Sod/Tazobactam (Sod 4.5 gm/ Dextrose) 100 mls @ 200 mls/hr IVPB Q8H-IV [facility]; Protocol Insulin Aspart (Novolog Vial Sliding Scale -) 1 vial SQ ACHS [facility]; Protocol Last Admin: 09/16/18 12:25 Dose: Not Given Lisinopril (Prinivil) 10 mg PO DAILY [facility] Last Admin: 09/16/18 10:52 Dose: 10 mg Methadone HCl (Dolophine -) 120 mg PO DAILY@0600 [facility] Last Admin: 09/16/18 10:51 Dose: 120 mg Multivitamins/Minerals/Vitamin C (Tab-A-Vit -) 1 tab PO DAILY [facility] Last Admin: 09/16/18 10:52 Dose: 1 tab Quetiapine Fumarate (Seroquel -) 50 mg PO [facility] - Objective Vital Signs: Vital Signs Temperature 36.4 C 09/16/18 05:00 Pulse Rate 89 09/16/18 05:00 Respiratory Rate 20 09/16/18 05:00 Blood Pressure 128/60 09/16/18 05:00 O2 Sat by Pulse Oximetry (%) 100 09/15/18 18:45 Constitutional: Yes: Well Nourished, No Distress, Calm Cardiovascular: Yes: Regular Rate and Rhythm. No: Gallop, Murmur, Rub Respiratory: Yes: Regular, On Nasal O2, Rhonchi. No: CTA Bilaterally, Rales, Wheezes Gastrointestinal: Yes: Normal Bowel Sounds, Soft. No: Distention, Tenderness Extremities: Yes: WNL Edema: No Labs: CBC, BMP 09/16/18 07:00 09/16/18 07:00 INR, PTT INR 1.35 (0.83-1.09) H 09/16/18 07:00 Problem List - Problems (1) Acute hypoxemic respiratory failure Assessment/Plan: -patient presents with acute hypoxic respiratory failure and worsening CT scan -case d/w ID -continue oxygen -consult pulmonary -antibiotics for pneumonia -start on solumedrol -schedule duonebs -monitor for improvement Code(s): J96.01 - ACUTE RESPIRATORY FAILURE WITH HYPOXIA (2) PNA (pneumonia) Assessment/Plan: -case d/w Dr Noova -vancomycin and zosyn Code(s): J18.9 - PNEUMONIA, UNSPECIFIED ORGANISM Qualifiers: Pneumonia type: due to unspecified organism Laterality: right Lung location: lower lobe of lung Qualified Code(s): J18.1 - Lobar pneumonia, unspecified organism (3) Chronic systolic heart failure Assessment/Plan: -ECHO ordered Code(s): I50.22 - CHRONIC SYSTOLIC (CONGESTIVE) HEART FAILURE (4) Hyperlipidemia Assessment/Plan: -continue statin Code(s): E78.5 - HYPERLIPIDEMIA, UNSPECIFIED (5) Hypertension Assessment/Plan: -continue lisinopril -controlled Code(s): I10 - ESSENTIAL (PRIMARY) HYPERTENSION (6) Lung cancer Assessment/Plan: -s/p radiation therapy -still needs two more rounds of chemotherapy -treat infection currently -? if worsening CT scan secondary to radiation pneumonitis Code(s): C34.90 - MALIGNANT NEOPLASM OF UNSP PART OF UNSP BRONCHUS OR LUNG (7) Opioid dependence Assessment/Plan: -continue methadone Code(s): F11.20 - OPIOID DEPENDENCE, UNCOMPLICATED (8) Renal cell carcinoma Assessment/Plan: -noted Code(s): C64.9 - MALIGNANT NEOPLASM OF UNSP KIDNEY, EXCEPT RENAL PELVIS (9) S/P TAVR (transcatheter aortic valve replacement) Code(s): Z95.2 - PRESENCE OF PROSTHETIC HEART VALVE (10) Type 2 diabetes mellitus Assessment/Plan: -diabetic diet and SSI -expect hyperglycemia while on steroids Code(s): E11.9 - TYPE 2 DIABETES MELLITUS WITHOUT COMPLICATIONS (11) COPD (chronic obstructive pulmonary disease) Assessment/Plan: -as above Code(s): J44.9 - CHRONIC OBSTRUCTIVE PULMONARY DISEASE, UNSPECIFIED
[2018-09-16] MEDS ORDERED: PIPERACILLIN/TAZOBACTAM 4.5 GM VIAL IVPB ONE ×2 (13:59→17:38)
[2018-09-16] MEDS ORDERED: DEXTROSE 5%-WATER 100 ML IVPB ONE ×2 (14:00→17:38)
[2018-09-16] MEDS: methylPREDNISolone NA SUCC 40 MG/1 ML VIAL IVPUSH SCH ×2 (14:08→22:03)
[2018-09-16] MEDS: PIPERACILLIN/TAZOB 4.5 GM 4.5 GM in DEXTROSE 5%-WATER 100 ML IVPB SCH ×2 (14:10→18:44)
[2018-09-16] MEDS: VANCOMYCIN 1,250 MG in DEXTROSE 5%-WATER - 250 ML IVPB SCH (15:44)
--- NOTE | 2018-09-16 15:53 | CON.PULM ---
Consult Consult Specialty:: PULMONARY Referred by:: [facility] Reason for Consultation:: FEVER/SOB/ABN CXR - History of Present Illness Chief Complaint: SOB/COUGH History of Present Illness: The patient is a 63 year old male with a PMH of Lung CA (s/p radiation, currently undergoing chemotherapy, last treatment early 08/2018), RCC, NIDDM, HTN and COPD (not on home O2) who presents to our ED c/o 2-3 day h/o shortness of breath. Intermittent productive cough (baseline) as well as subjective fevers. Notes decreased appetiite 2/2 to his symptoms with a 110 pound weight loss over the last 1 year. Denies chest pain. Patient hospitalized earlier this month for PNA and states he completed his entire prescribed antibiotic course. Denies any leg swelling, recent travel/immobilization. The patient denies any chills, nausea/vomiting, diarrhea/constipation, dysuria/hematuria. Patient also has a h/o laryngeal ca which he says has been cleared. - History Source History Provided By: Patient, Medical Record Limitations to Obtaining History: Poor Historian - Past Medical History SCIENCE LIAISON: No: Alzheimer's Cardio/Vascular: Yes: Aortic Stenosis Pulmonary: Yes: Bronchitis, Cancer, COPD, Pneumonia. No: O2 Dependent, Pulmonary Embolus, Pulmonary Fibrosis, Sleep Apnea Gastrointestinal: No: Ascites Hepatobiliary: No: Cirrhosis Renal/: No: Renal Failure Heme/Onc: Yes: Anemia, Current Chemotherapy, Current Radiation Therapy Infectious Disease: No: AIDS Psych: No: Addictions Musculoskeletal: No: Bursitis Rheumatology: No: Fibromyalgia Endocrine: Yes: Diabetes Mellitus - Past Surgical History Past Surgical History: Yes: Valve Replacement Additional Surgical History: vats right lung resection 2/2 lung ca - Alcohol/Substance Use Hx Alcohol Use: No History of Substance Use: reports: Heroin - Smoking History Smoking history: Former smoker Have you smoked in the past 12 months: No Aproximately how many cigarettes per day: 20 If you are a former smoker, when did you quit?: 06/19/2018 - Social History Usual Living Arrangement: With Spouse ADL: Family [facility] History of Recent Travel: No Home Medications - Allergies Allergies/Adverse Reactions: Allergies Allergy/AdvReac Type Severity Reaction Status Date / Time azithromycin AdvReac Verified 09/15/18 11:48 - Home Medications Home Medications: Ambulatory Orders Albuterol 2.5/Ipratropium 0.5 [Duoneb -] 1 neb IH QID 09/15/18 Aspirin [ASA -] 81 mg PO DAILY 09/15/18 Glipizide 5 mg PO DAILY 09/15/18 Lisinopril 10 mg PO DAILY 09/15/18 Metformin HCl [Metformin HCl ER] 1,000 mg PO BID 09/15/18 Methadone [Dolophine -] 120 mg PO DAILY 09/15/18 Multivitamins [Tab-A-Vit -] 1 tab PO DAILY 09/15/18 Simvastatin 40 mg PO HS 09/15/18 Family Disease History - Family Disease History Family History: Unable to Obtain Review of Systems - Review of Systems Constitutional: reports: Fever Eyes: denies: Blurred Vision HENT: denies: Difficult Swallowing Neck: denies: Decreased ROM Cardiovascular: denies: Chest Pain Respiratory: reports: Cough, Exercise Intolerance, SOB, SOB on Exertion, Wheezing. denies: Hemoptysis Gastrointestinal: denies: Abdominal Pain Genitourinary: reports: No Symptoms Physical Exam Vital Sings: Vital Signs Temperature 98.7 F 09/16/18 15:39 Pulse Rate 90 09/16/18 15:39 Respiratory Rate 18 09/16/18 15:39 Blood Pressure 122/64 09/16/18 15:39 O2 Sat by Pulse Oximetry (%) 93 L 09/16/18 09:00 Constitutional: Yes: Calm Eyes: Yes: EOM Intact HENT: Yes: Normocephalic Neck: Yes: Trachea Midline Cardiovascular: Yes: Regular Rate and Rhythm Respiratory: Yes: Diminished, Rales Gastrointestinal: Yes: Normal Bowel Sounds Edema: RUE: 3+ (post contrast for ct) Neurological: Yes: Alert Labs: CBC, BMP 09/16/18 07:00 09/16/18 07:00 ABG Results ABG pH 7.44 (7.35-7.45) 09/15/18 19:30 ABG pCO2 at Pt Temp 43.7 mmHg (35-45) 09/15/18 19:30 ABG pO2 at Pt Temp 47.6 mmHg (80-100) L* D 09/15/18 19:30 ABG HCO3 29.2 meq/L (22-26) H 09/15/18 19:30 ABG O2 Sat (Measured) 78.8 % (90-98.9) L 09/15/18 19:30 ABG O2 Content 11.4 % vol (15-22) L 09/15/18 19:30 ABG Base Excess 5.0 meq/l (-2-2) H 09/15/18 19:30 rest reviewed Imaging - Results Chest X-ray: Report Reviewed, Image Reviewed Cat Scan: Report Reviewed, Image Reviewed Problem List - Problems (1) Acute hypoxemic respiratory failure Code(s): J96.01 - ACUTE RESPIRATORY FAILURE WITH HYPOXIA (2) Emphysema lung Code(s): J43.9 - EMPHYSEMA, UNSPECIFIED (3) Hypertension Code(s): I10 - ESSENTIAL (PRIMARY) HYPERTENSION (4) Lung cancer Code(s): C34.90 - MALIGNANT NEOPLASM OF UNSP PART OF UNSP BRONCHUS OR LUNG (5) Opioid dependence Code(s): F11.20 - OPIOID DEPENDENCE, UNCOMPLICATED (6) Renal cell carcinoma Code(s): C64.9 - MALIGNANT NEOPLASM OF UNSP KIDNEY, EXCEPT RENAL PELVIS (7) S/P TAVR (transcatheter aortic valve replacement) Code(s): Z95.2 - PRESENCE OF PROSTHETIC HEART VALVE (8) Throat cancer Code(s): C14.0 - MALIGNANT NEOPLASM OF PHARYNX, UNSPECIFIED (9) Type 2 diabetes mellitus Code(s): E11.9 - TYPE 2 DIABETES MELLITUS WITHOUT COMPLICATIONS Assessment/Plan Dense bilateral consolidative processes which have developed since 08/22/18 Patient reports RT to chest and concurrent chemotx. Details of above to be confirmed with daughter (keeper of the health records) Hypoxemic respiratory failure possibly due to RT pneumonitis/metastatic disease/ superimposed acute infectious process Fio2 to titrate in order to keep spo2 90% or greater Would give trial of steroids and antibiotics Obtain records from family member Bronchodilators DVT prophylaxsis/glycemic control will follow Chaya VILLA MD
[2018-09-16] MEDS: ALBUTEROL SO4 2.5/IPRATROPIUM 0.5 INH SOL 3 ML VIAL.NEB. NEB SCH ×2 (16:19→19:26)
--- NOTE | 2018-09-16 16:48 | CON.CARD ---
Consult Consult Specialty:: Cardiology Consult Reason for Consultation:: Elevated BNP - History of Present Illness Chief Complaint: SOB History of Present Illness: This is a 63 year old male with a PMH of Lung CA s/p RT, urrently undergoing chemotherapy, last treatment early 08/2018, RCC, DM, HTN, and COPD. He presents now with SOB. Notes intermittent productive cough (baseline) as well as subjective fevers. Had PNA earlier this month. HCT 23%. BNP 4933. No chest pain. 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 No: O2 Dependent, Pulmonary Embolus, Pulmonary Fibrosis, Sleep Apnea Gastrointestinal: No: Ascites Hepatobiliary: No: Cirrhosis Renal/: No: Renal Failure Infectious Disease: No: AIDS Psych: No: Addictions Musculoskeletal: No: Bursitis Rheumatology: No: Fibromyalgia Endocrine: Yes: Diabetes Mellitus - Past Surgical History Past Surgical History: Yes: Valve Replacement Additional Surgical History: vats right lung resection 2/2 lung ca - Alcohol/Substance Use Hx Alcohol Use: No History of Substance Use: reports: Heroin - Smoking History Smoking history: Former smoker Have you smoked in the past 12 months: No Aproximately how many cigarettes per day: 20 If you are a former smoker, when did you quit?: 06/19/2018 - Social History Usual Living Arrangement: With Spouse ADL: Family Assistance History of Recent Travel: No Home Medications - Allergies Allergies/Adverse Reactions: Allergies Allergy/AdvReac Type Severity Reaction Status Date / Time azithromycin AdvReac Verified 09/15/18 11:48 - Home Medications Home Medications: Ambulatory Orders Albuterol 2.5/Ipratropium 0.5 [Duoneb -] 1 neb IH QID 09/15/18 Aspirin [ASA -] 81 mg PO DAILY 09/15/18 Glipizide 5 mg PO DAILY 09/15/18 Lisinopril 10 mg PO DAILY 09/15/18 Metformin HCl [Metformin HCl ER] 1,000 mg PO BID 09/15/18 Methadone [Dolophine -] 120 mg PO DAILY 09/15/18 Multivitamins [Tab-A-Vit -] 1 tab PO DAILY 09/15/18 Simvastatin 40 mg PO HS 09/15/18 Vital Signs: Vital Signs Temperature 98.7 F 09/16/18 15:39 Pulse Rate 90 09/16/18 15:39 Respiratory Rate 18 09/16/18 15:39 Blood Pressure 122/64 09/16/18 15:39 O2 Sat by Pulse Oximetry (%) 93 L 09/16/18 09:00 Constitutional: Yes: No Distress, Cachectic Eyes: Yes: WNL HENT: Yes: WNL Neck: Yes: WNL Respiratory: Yes: Dullness Gastrointestinal: Yes: Normal Bowel Sounds, Soft Cardiovascular: Yes: Regular Rate and Rhythm Heart Sounds: Yes: S1, S2 Edema: No Neurological: Yes: Alert, Oriented - Other Data Labs, Other Data: CBC, BMP 09/16/18 07:00 09/16/18 07:00 INR, PTT INR 1.35 (0.83-1.09) H 09/16/18 07:00 Assessment/Plan 63 year old male with a PMH of Lung CA s/p RT, urrently undergoing chemotherapy , last treatment early 08/2018, RCC, DM, HTN, and COPD. He presents now with SOB. Notes intermittent productive cough (baseline) as well as subjective fevers. Had PNA earlier this month. HCT 23%. BNP 4933. No chest pain. EKG Sinus tachycardia ar 118 with a NSIVCD Elevated BNP SOB - related to pulmonary issue and anemia Would obtain an echocardiogram to assess LV function to asses for contributing cardiac factors. Continue Lisinopril Avoid Beta Blockers
[2018-09-16] MEDS: ATORVASTATIN CA 20 MG TABLET (FP) PO SCH (22:04)
[2018-09-16] MEDS: QUEtiapine FUMARATE 50 MG TABLET PO SCH (22:04)
[2018-09-17] MEDS ORDERED: PIPERACILLIN/TAZOBACTAM 4.5 GM VIAL IVPB ONE ×3 (02:32→18:08)
[2018-09-17] MEDS ORDERED: DEXTROSE 5%-WATER 100 ML IVPB ONE ×3 (02:32→18:08)
[2018-09-17] MEDS: PIPERACILLIN/TAZOB 4.5 GM 4.5 GM in DEXTROSE 5%-WATER 100 ML IVPB SCH ×3 (02:44→18:30)
[2018-09-17] MEDS: methylPREDNISolone NA SUCC 40 MG/1 ML VIAL IVPUSH SCH ×5 (02:44→22:09)
[2018-09-17] MEDS: VANCOMYCIN 1,250 MG in DEXTROSE 5%-WATER - 250 ML IVPB SCH ×2 (02:44→14:41)
[2018-09-17] MEDS: ALBUTEROL SO4 2.5/IPRATROPIUM 0.5 INH SOL 3 ML VIAL.NEB. NEB SCH ×4 (06:20→19:21)
[2018-09-17] MEDS: HEPARIN NA (PORCINE) 5,000 UNITS/ML 1ML VIAL SQ SCH ×3 (06:37→22:08)
[2018-09-17] MEDS: METHADONE HCL 40 MG DISPERSABLE TABLET PO SCH (06:37)
[2018-09-17] MEDS: INSULIN SLIDING SCALE (NOVOLOG) 1 VIAL SQ SCH ×4 (06:38→22:09)
[2018-09-17] MEDS ORDERED: INSULIN (NOVOLOG) ASPART 100 UNITS/ML 10ML VIAL ONE ×3 (06:49→22:03)
[2018-09-17 07:44] LABS: BASO % 0.1 % (0-2.0); HEMATOCRIT 23.6 % (35.4-49); HEMOGLOBIN 7.7 GM/dL (11.7-16.9); MCH 29.4 pg (25.7-33.7); MCHC 32.5 g/dl (32.0-35.9); MEAN CELL VOLUME 90.5 fl (80-96); MEAN PLT VOLUME 8.4 fl (7.5-11.1); MONO % 4.6 % (3.8-10.2); NEUT % 93.3 % (42.8-82.8); PLATELET COUNT 100 K/MM3 (134-434); RBC 2.61 M/mm3 (4.00-5.60); RDW 19.9 % (11.9-15.9); WHITE BLOOD COUNT 7.2 K/mm3 (4.0-10.0)
[2018-09-17 08:33] LABS: ANION GAP 9 MMOL/L (8-16); BLOOD UREA NITROGEN 39 mg/dL (7-18); CHLORIDE 93 mmol/L (98-107); CO2 29 mmol/L (21-32); CREATININE 1.1 mg/dL (0.55-1.3); GLUCOSE,RANDOM 212 mg/dL (74-106); MAGNESIUM 2.4 mg/dL (1.8-2.4); PHOSPHOROUS 5.2 mg/dL (2.5-4.9); POTASSIUM 4.3 mmol/L (3.5-5.1); SODIUM 131 mmol/L (136-145)
[2018-09-17] MEDS: LISINOPRIL 10 MG TABLET (FP) PO SCH (11:12)
[2018-09-17] MEDS: MULTIVITAMINS (DAILY MVI) TABLET (FP) PO SCH (11:12)
[2018-09-17 11:20] LABS: ACANTHOCYTES 1+; ANISOCYTOSIS 2+; MACROCYTOSIS 0; OVALOCYTE 1+; PLATELET ESTIMATE DECREASED
--- NOTE | 2018-09-17 12:57 | PN ---
Physical Exam: SUBJECTIVE: Patient seen and examined. Ambulating around room. Daughter present. Decreased appetite x 4 days, continued SOB and PARDO. PCP: Dr. Adkins Cardiology: Dr. Estes, [facility] Oncology: Dr. Dyer, [facility] OBJECTIVE: Vital Signs Period Temp Pulse Resp BP Sys/Nicholas Pulse Ox Last 24 Hr 97.6 F-98.7 F 61-90 18-20 111-125/56-66 92 GENERAL: The patient is awake, alert, and fully oriented, in no acute distress. LUNGS: Breath sounds CTA HEART: Regular rate and rhythm, S1, S2 without murmur, rub or gallop. ABDOMEN: Soft, nontender, nondistended RUE: large area of ecchymosis surrounding peripheral AV site, no warmth, so fluctuance or swelling LE: Bilateral 1+ edema, 2+ pulses, warm, well-perfused NEUROLOGICAL: Cranial nerves II through XII grossly intact. Normal speech, steady gait PSYCH: Normal mood, normal affect. SKIN: Warm, dry, normal turgor Laboratory Results - last 24 hr 09/16/18 09/16/18 09/16/18 12:56 17:27 21:56 WBC RBC Hgb Hct MCV MCH MCHC RDW Plt Count MPV Absolute Neuts (auto) Neutrophils % Neutrophils % (Manual) Band Neutrophils % Lymphocytes % Lymphocytes % (Manual) Monocytes % Monocytes % (Manual) Eosinophils % Eosinophils % (Manual) Basophils % Basophils % (Manual) Myelocytes % (Man) Promyelocytes % (Man) Blast Cells % (Manual) Nucleated RBC % Metamyelocytes Hypochromia Platelet Estimate Platelet Comment Polychromasia Poikilocytosis Anisocytosis Microcytosis Macrocytosis Ovalocytes [place] Cells Acanthocytes (Spur) Sodium Potassium Chloride Carbon Dioxide Anion Gap BUN Creatinine Creat Clearance w eGFR POC Glucometer 328 203 Random Glucose Calcium Phosphorus Magnesium Group A Strep Rapid Negative 09/17/18 09/17/18 09/17/18 06:35 06:48 06:48 WBC 7.2 RBC 2.61 L Hgb 7.7 L Hct 23.6 L MCV 90.5 MCH 29.4 MCHC 32.5 RDW 19.9 H Plt Count 100 L MPV 8.4 Absolute Neuts (auto) 6.7 Neutrophils % 93.3 H Neutrophils % (Manual) 85.0 H Band Neutrophils % 4.0 Lymphocytes % 2.0 L D Lymphocytes % (Manual) 2.0 L D Monocytes % 4.6 D Monocytes % (Manual) 6 Eosinophils % 0.0 D Eosinophils % (Manual) 0.0 Basophils % 0.1 Basophils % (Manual) 0.0 Myelocytes % (Man) 0 Promyelocytes % (Man) 0 Blast Cells % (Manual) 0 Nucleated RBC % 0 Metamyelocytes 0 Hypochromia 1+ Platelet Estimate Decreased Platelet Comment Present Polychromasia 1+ Poikilocytosis 0 Anisocytosis 2+ Microcytosis 2+ Macrocytosis 0 Ovalocytes 1+ [place] Cells 1+ Acanthocytes (Spur) 1+ Sodium 131 L Potassium 4.3 Chloride 93 L Carbon Dioxide 29 Anion Gap 9 BUN 39 H Creatinine 1.1 Creat Clearance w eGFR > 60 POC Glucometer 242 Random Glucose 212 H Calcium 8.0 L Phosphorus 5.2 H Magnesium 2.4 Group A Strep Rapid 09/17/18 12:05 WBC RBC Hgb Hct MCV MCH MCHC RDW Plt Count MPV Absolute Neuts (auto) Neutrophils % Neutrophils % (Manual) Band Neutrophils % Lymphocytes % Lymphocytes % (Manual) Monocytes % Monocytes % (Manual) Eosinophils % Eosinophils % (Manual) Basophils % Basophils % (Manual) Myelocytes % (Man) Promyelocytes % (Man) Blast Cells % (Manual) Nucleated RBC % Metamyelocytes Hypochromia Platelet Estimate Platelet Comment Polychromasia Poikilocytosis Anisocytosis Microcytosis Macrocytosis Ovalocytes [place] Cells Acanthocytes (Spur) Sodium Potassium Chloride Carbon Dioxide Anion Gap BUN Creatinine Creat Clearance w eGFR POC Glucometer 260 Random Glucose Calcium Phosphorus Magnesium Group A Strep Rapid Active Medications Generic Name Dose Route Start Last Admin Trade Name Freq PRN Reason Stop Dose Admin Albuterol Sulfate 2 puff 09/15/18 22:15 Ventolin Hfa Inhaler - IH Q4H PRN SHORT OF BREATH/WHEEZING Albuterol/Ipratropium 1 amp 09/16/18 16:00 09/17/18 11:41 Duoneb - NEB 1 amp RQID KIRA Administration Atorvastatin Calcium 20 mg 09/16/18 22:00 09/16/18 22:04 Lipitor - PO 20 mg HS KIRA Administration Heparin Sodium (Porcine) 5,000 unit 09/15/18 22:30 09/17/18 06:37 Heparin - SQ 5,000 unit TID KIRA Administration Vancomycin HCl 1,250 mg/ 250 mls @ 166.667 mls/hr 09/16/18 14:00 09/17/18 02: 44 Dextrose IVPB 166.667 mls/hr Q12H KIRA Administration Protocol Piperacillin Sod/Tazobactam 100 mls @ 200 mls/hr 09/16/18 11:15 09/17/18 11: 13 Sod 4.5 gm/ Dextrose IVPB 200 mls/hr Q8H-IV KIRA Administration Protocol Insulin Aspart 1 vial 09/16/18 07:00 09/17/18 12:07 Novolog Vial Sliding Scale - SQ 6 units ACHS KIRA Administration Protocol Lisinopril 10 mg 09/16/18 10:00 09/17/18 11:12 Prinivil PO 10 mg DAILY KIRA Administration Methadone HCl 120 mg 09/16/18 09:00 09/17/18 06:37 Dolophine - PO 120 mg DAILY@0600 KIRA Administration Methylprednisolone Sodium Succinate 40 mg 09/16/18 15:00 09/17/18 11:12 Solu-Medrol - IVPUSH 40 mg Q6H-IV KIRA Administration Multivitamins/Minerals/Vitamin C 1 tab 09/16/18 10:00 09/17/18 11:12 Tab-A-Vit - PO 1 tab DAILY KIRA Administration Quetiapine Fumarate 50 mg 09/16/18 22:00 09/16/18 22:04 Seroquel - PO 50 mg HS KIAR Administration Microbiology 09/15/18 12:30 Blood - Peripheral Venous Blood Culture - Preliminary NO GROWTH OBTAINED AFTER 48 HOURS, INCUBATION TO CONTINUE FOR 3 DAYS. 09/16/18 12:05 Blood - Peripheral Venous Blood Culture - Preliminary NO GROWTH OBTAINED AFTER 24 HOURS, INCUBATION TO CONTINUE FOR 4 DAYS. 09/16/18 12:10 Blood - Peripheral Venous Blood Culture - Preliminary NO GROWTH OBTAINED AFTER 24 HOURS, INCUBATION TO CONTINUE FOR 4 DAYS. 09/15/18 10:32 Sputum - Expectorated Gram Stain - Final 09/15/18 10:32 Sputum - Expectorated Sputum Culture - Preliminary Lactose Fermenting Neg Bacilli Yeast Like Organism 09/15/18 12:30 Blood - Peripheral Venous Blood Culture - Preliminary Streptococcus Pneumoniae 09/15/18 23:07 Urine - Urine Clean Catch Urine Culture - Final NO GROWTH OBTAINED 09/16/18 13:06 Throat Throat Culture - Final Yeast Like Organism 09/15/18 23:07 Urine For Antigen Detection Legionella Antigen - Final 09/15/18 23:07 Urine For Antigen Detection Streptococcus pneumoniae Antigen (M - Final ASSESSMENT/PLAN 63 year-old male with a PMH significant for HTN, systolic HR, s/p TAVR (2015), COPD, Type II NIDDM, lung, laryngeal, and renal cell carcinoma, presently on chemotherapy for lung cancer, methadone dependency Acute hypoxemic respiratory failure GNB Pneumonia Chronic COPD --09/15 CT chest: extensive diffuse consolidation both lungs, significantly worse since 09/11 --09/15 Sputum (+) LFGNB --Tm 101.1, Tc 97.6 --leukocytosis resolved --continue Vanc (day #2), Zosyn (day #2) --IV steroids --ID following Strep pneumoniae bacteremia --09/15 Blood: 1 out of 2 (+) strep --antibiotics as above Systolic and diastolic heart failure Severe aortic stenosis s/p TAVR (2015) --06/21/18 Echo: mild cLVH, LV systolic function mildly reduced, impaired relaxation; trace MR; severe (post-TAVR) --09/17 Echo: LV borderline reduced, EF 50-55%, diastolic dysfunction; LAE; mild MR; severe aortic stenosis (post-TAVR) --BNP 4933 (<--198406/20/18) --signs of volume overload, BNP elevated, mild b/L LE edema; discussed with Dr. Godfrey, will hold off dirursis due to severe but if transfused, may need some lasix Anemia --Hgb 7.7 --type and screen ordered Hypertension --BP stable --continue lisinopril Hyperlipidemia --continue Lipitor Lung cancer --still needs two more rounds of chemotherapy Laryngeal cancer Renal cell carcinoma --no acute issues Methadone dependency --continue methadone Type II NIDDM ---Novolog sliding scale coverage FEN Fluids: PO intake adequate Electrolytes: replete as indicated Nutrition: low sodium, diabetic DVT prophylaxis: subq heparin Physical therapy Dispo: continues to require inpatient care. Full code. Visit type - Emergency Visit Emergency Visit: Yes ED Registration Date: 09/15/18 Care time: The patient presented to the Emergency Department on the above date and was hospitalized for further evaluation of their emergent condition. - New Patient This patient is new to me today: Yes Date on this admission: 09/17/18 - Critical Care Critical Care patient: No
--- NOTE | 2018-09-17 13:50 | PN ---
Progress Note, Physician History of Present Illness: PULMONARY ALERT,FEELING BETTER,LESS DYSPNEIC,+ COUGH,FEELS WEAK - Current Medication List Current Medications: Active Medications Albuterol Sulfate (Ventolin Hfa Inhaler -) 2 puff IH Q4H PRN PRN Reason: SHORT OF BREATH/WHEEZING Albuterol/Ipratropium (Duoneb -) 1 amp NEB RQID [facility] Last Admin: 09/17/18 11:41 Dose: 1 amp Atorvastatin Calcium (Lipitor -) 20 mg PO HS [facility] Last Admin: 09/16/18 22:04 Dose: 20 mg Heparin Sodium (Porcine) (Heparin -) 5,000 unit SQ TID [facility] Last Admin: 09/17/18 06:37 Dose: 5,000 unit Vancomycin HCl 1,250 mg/ (Dextrose) 250 mls @ 166.667 mls/hr IVPB Q12H [facility]; Protocol Last Admin: 09/17/18 02:44 Dose: 166.667 mls/hr Piperacillin Sod/Tazobactam (Sod 4.5 gm/ Dextrose) 100 mls @ 200 mls/hr IVPB Q8H-IV [facility]; Protocol Last Admin: 09/17/18 11:13 Dose: 200 mls/hr Insulin Aspart (Novolog Vial Sliding Scale -) 1 vial SQ ACHS [facility]; Protocol Last Admin: 09/17/18 12:07 Dose: 6 units Lisinopril (Prinivil) 10 mg PO DAILY [facility] Last Admin: 09/17/18 11:12 Dose: 10 mg Methadone HCl (Dolophine -) 120 mg PO DAILY@0600 [facility] Last Admin: 09/17/18 06:37 Dose: 120 mg Methylprednisolone Sodium Succinate (Solu-Medrol -) 40 mg IVPUSH Q6H-IV [facility] Last Admin: 09/17/18 11:12 Dose: 40 mg Multivitamins/Minerals/Vitamin C (Tab-A-Vit -) 1 tab PO DAILY [facility] Last Admin: 09/17/18 11:12 Dose: 1 tab Quetiapine Fumarate (Seroquel -) 50 mg PO HS [facility] Last Admin: 09/16/18 22:04 Dose: 50 mg - Objective Vital Signs: Vital Signs Temperature 97.6 F 09/17/18 10:30 Pulse Rate 70 09/17/18 10:30 Respiratory Rate 20 09/17/18 10:30 Blood Pressure 125/66 09/17/18 10:30 O2 Sat by Pulse Oximetry (%) 92 L 09/16/18 21:00 Constitutional: Yes: Well Nourished, Calm Eyes: Yes: WNL HENT: Yes: WNL Neck: Yes: WNL Cardiovascular: Yes: Regular Rate and Rhythm, S1, S2 Respiratory: Yes: Diminished Gastrointestinal: Yes: Normal Bowel Sounds, Soft Extremities: Yes: WNL Edema: No Labs: CBC, BMP 09/17/18 06:48 09/17/18 06:48 INR, PTT INR 1.35 (0.83-1.09) H 09/16/18 07:00 Assessment/Plan Problem List - Problems (1) Acute hypoxemic respiratory failure Code(s): J96.01 - ACUTE RESPIRATORY FAILURE WITH HYPOXIA (2) Emphysema lung Code(s): J43.9 - EMPHYSEMA, UNSPECIFIED (3) Hypertension Code(s): I10 - ESSENTIAL (PRIMARY) HYPERTENSION (4) Lung cancer Code(s): C34.90 - MALIGNANT NEOPLASM OF UNSP PART OF UNSP BRONCHUS OR LUNG (5) Opioid dependence Code(s): F11.20 - OPIOID DEPENDENCE, UNCOMPLICATED (6) Renal cell carcinoma Code(s): C64.9 - MALIGNANT NEOPLASM OF UNSP KIDNEY, EXCEPT RENAL PELVIS (7) S/P TAVR (transcatheter aortic valve replacement) Code(s): Z95.2 - PRESENCE OF PROSTHETIC HEART VALVE (8) Throat cancer Code(s): C14.0 - MALIGNANT NEOPLASM OF PHARYNX, UNSPECIFIED (9) Type 2 diabetes mellitus Code(s): E11.9 - TYPE 2 DIABETES MELLITUS WITHOUT COMPLICATIONS Assessment/Plan Dense bilateral consolidative processes which have developed since 08/22/18 H/O RT to chest and concurrent chemotx. Hypoxemic respiratory failure possibly due to RT pneumonitis/metastatic disease/ superimposed acute infectious process ANEMIA Fio2 to titrate in order to keep spo2 90% or greater steroids antibiotics INHALED BRONCHODILATORS Obtain records from family member Bronchodilators DVT prophylaxsis glycemic control f/u chest x-rays f/u chest ct outpatient Normal transfusion threshold DR MCCALL
--- NOTE | 2018-09-17 14:10 | PN ---
Progress Note, Physician Chief Complaint: SOB improving History of Present Illness: 63 year old male with a PMH of Lung CA s/p RT, urrently undergoing chemotherapy , last treatment early 08/2018, RCC, DM, HTN, and COPD. He presents now with SOB. Notes intermittent productive cough (baseline) as well as subjective fevers. Had PNA earlier this month. HCT 23%. BNP 4933. No chest pain. EKG Sinus tachycardia ar 118 with a NSIVCD - Current Medication List Current Medications: Active Medications Albuterol Sulfate (Ventolin Hfa Inhaler -) 2 puff IH Q4H PRN PRN Reason: SHORT OF BREATH/WHEEZING Albuterol/Ipratropium (Duoneb -) 1 amp NEB RQID [facility] Last Admin: 09/17/18 11:41 Dose: 1 amp Atorvastatin Calcium (Lipitor -) 20 mg PO HS [facility] Last Admin: 09/16/18 22:04 Dose: 20 mg Heparin Sodium (Porcine) (Heparin -) 5,000 unit SQ TID [facility] Last Admin: 09/17/18 06:37 Dose: 5,000 unit Vancomycin HCl 1,250 mg/ (Dextrose) 250 mls @ 166.667 mls/hr IVPB Q12H [facility]; Protocol Last Admin: 09/17/18 02:44 Dose: 166.667 mls/hr Piperacillin Sod/Tazobactam (Sod 4.5 gm/ Dextrose) 100 mls @ 200 mls/hr IVPB Q8H-IV [facility]; Protocol Last Admin: 09/17/18 11:13 Dose: 200 mls/hr Insulin Aspart (Novolog Vial Sliding Scale -) 1 vial SQ ACHS [facility]; Protocol Last Admin: 09/17/18 12:07 Dose: 6 units Lisinopril (Prinivil) 10 mg PO DAILY [facility] Last Admin: 09/17/18 11:12 Dose: 10 mg Methadone HCl (Dolophine -) 120 mg PO DAILY@0600 [facility] Last Admin: 09/17/18 06:37 Dose: 120 mg Methylprednisolone Sodium Succinate (Solu-Medrol -) 40 mg IVPUSH Q6H-IV [facility] Last Admin: 09/17/18 11:12 Dose: 40 mg Multivitamins/Minerals/Vitamin C (Tab-A-Vit -) 1 tab PO DAILY [facility] Last Admin: 09/17/18 11:12 Dose: 1 tab Quetiapine Fumarate (Seroquel -) 50 mg PO HS [facility] Last Admin: 09/16/18 22:04 Dose: 50 mg - Objective Vital Signs: Vital Signs Temperature 97.6 F 09/17/18 10:30 Pulse Rate 70 09/17/18 10:30 Respiratory Rate 20 09/17/18 10:30 Blood Pressure 125/66 09/17/18 10:30 O2 Sat by Pulse Oximetry (%) 92 L 09/16/18 21:00 Constitutional: Yes: No Distress Neck: Yes: Supple Cardiovascular: Yes: Regular Rate and Rhythm, Murmur (+2/6 HSM RUSB), S1, S2 Respiratory: Yes: Rales (bibasilar) Gastrointestinal: Yes: Soft Edema: LLE: 1+, RLE: 1+ Labs: CBC, BMP 09/17/18 06:48 09/17/18 06:48 INR, PTT INR 1.35 (0.83-1.09) H 09/16/18 07:00 Assessment/Plan 63 year old male with a PMH of Lung CA s/p RT, currently undergoing chemotherapy , last treatment early 08/2018, RCC, DM, HTN, chronic systolic CHF, aortic stenosis s/p TAVR and COPD. He presents now with SOB. Notes intermittent productive cough (baseline) as well as subjective fevers. Had PNA earlier this month. HCT 23%. BNP 4933. No chest pain. EKG Sinus tachycardia ar 118 with a NSIVCD Elevated BNP Chest CT with mediastinal lymph nodes and pulmonary consolidations. Hgb level trending down. Low albumin level. Would obtain an echocardiogram to assess LV function and bio aortic valve function. Continue Lisinopril for bp control. If gets transfused monitor for possible need for furosemide.
[2018-09-17 14:16] VITALS: BMI 28.0
--- NOTE | 2018-09-17 15:06 | ECHO ---
Name: OSMAN BENITEZ Exam:Adult Echocardiogram Study Date: 09/17/2018 10:40 AM Age: 63 yrs Reason For Study: SHORTNESS OF BREATH Height: 68 in Weight: 179 lb BSA: 1.9 m2 MMode/2D Measurements & Calculations IVSd: 0.76 cm Ao root diam: 2.6 cm LVIDd: 6.2 cm LA dimension: 4.2 cm LVIDs: 3.8 cm LVPWd: 0.76 cm EDV(Teich): 195.0 ml ESV(Teich): 63.8 ml Doppler Measurements & Calculations MV E max ollie: 87.9 cm/sec Ao V2 max: 314.4 cm/sec MV A max ollie: 122.9 cm/sec Ao max P.8 mmHg MV E/A: 0.71 Ao V2 mean: 225.5 cm/sec MV dec time: 0.20 sec Ao mean P.1 mmHg Ao V2 VTI: 69.6 cm LV V1 max P.9 mmHg MR max ollie: 472.5 cm/sec LV V1 mean P.6 mmHg MR max P.3 mmHg LV V1 max: 85.4 cm/sec LV V1 mean: 59.5 cm/sec LV V1 VTI: 18.8 cm TR max ollie: 227.7 cm/sec Med Peak E' Ollie: 12.6 cm/sec TR max P.8 mmHg Med E/e': 7.0 Lat Peak E' Ollie: 10.1 cm/sec Lat E/e': 8.7 Procedure A complete two-dimensional transthoracic echocardiogram was performed (2D, M-mode, Doppler and color flow Doppler). Technically limited study. Left Ventricle The left ventricle is mildly dilated. Left ventricular systolic function is borderline reduced. Eject ion Fraction = 50-55%. Diastolic dysfunction, Grade II, consistent with elevated left atrial pressure. Ra olive E/E'= 20. Right Ventricle The right ventricle is not well visualized. Atria The left atrium is mildly dilated. Right atrium not well visualized. Mitral Valve There is mild mitral annular calcification. There is mild mitral regurgitation. Tricuspid Valve The tricuspid valve is normal in structure and function. No tricuspid regurgitation. Aortic Valve The aortic valve is not well visualized. DI (dimensionless index) is 0.25 suggesting severe aortic va lve stenosis. Aortic mean pressure gradient= 25. Pulmonic Valve The pulmonic valve is not well visualized. Great Vessels The aortic root is normal size. Pericardium/Pleura There is no pericardial effusion. Interpretation Summary Technically limited study The left ventricle is mildly dilated. Left ventricular systolic function is borderline reduced. Ejection Fraction = 50-55%. Diastolic dysfunction, Grade II, consistent with elevated left atrial pressure. Ratio E/E'= 20 The right ventricle is not well visualized. The left atrium is mildly dilated. Right atrium not well visualized. There is mild mitral annular calcification. There is mild mitral regurgitation. DI (dimensionless index) is 0.25 suggesting severe aortic valve stenosis There is no pericardial effusion. When compared to study dated 06/21/18, no significant changes Anuj Robin MD 09/17/2018 03:06 PM
--- NOTE | 2018-09-17 17:33 | PN ---
Progress Note, Physician History of Present Illness: Blood c/s + Pneumococcus Sputum c/s LF Feeling better Less cough- reports greenish blood-streaked sputum + pleuritic cp Denies dyspnea Temps down - Current Medication List Current Medications: Active Medications Albuterol Sulfate (Ventolin Hfa Inhaler -) 2 puff IH Q4H PRN PRN Reason: SHORT OF BREATH/WHEEZING Albuterol/Ipratropium (Duoneb -) 1 amp NEB RQID [facility] Last Admin: 09/17/18 15:19 Dose: 1 amp Atorvastatin Calcium (Lipitor -) 20 mg PO HS [facility] Last Admin: 09/16/18 22:04 Dose: 20 mg Heparin Sodium (Porcine) (Heparin -) 5,000 unit SQ TID [facility] Last Admin: 09/17/18 14:41 Dose: 5,000 unit Vancomycin HCl 1,250 mg/ (Dextrose) 250 mls @ 166.667 mls/hr IVPB Q12H [facility]; Protocol Last Admin: 09/17/18 14:41 Dose: 166.667 mls/hr Piperacillin Sod/Tazobactam (Sod 4.5 gm/ Dextrose) 100 mls @ 200 mls/hr IVPB Q8H-IV [facility]; Protocol Last Admin: 09/17/18 11:13 Dose: 200 mls/hr Insulin Aspart (Novolog Vial Sliding Scale -) 1 vial SQ ACHS [facility]; Protocol Last Admin: 09/17/18 12:07 Dose: 6 units Lisinopril (Prinivil) 10 mg PO DAILY [facility] Last Admin: 09/17/18 11:12 Dose: 10 mg Methadone HCl (Dolophine -) 120 mg PO DAILY@0600 [facility] Last Admin: 09/17/18 06:37 Dose: 120 mg Methylprednisolone Sodium Succinate (Solu-Medrol -) 40 mg IVPUSH Q6H-IV [facility] Last Admin: 09/17/18 11:12 Dose: 40 mg Multivitamins/Minerals/Vitamin C (Tab-A-Vit -) 1 tab PO DAILY [facility] Last Admin: 09/17/18 11:12 Dose: 1 tab Quetiapine Fumarate (Seroquel -) 50 mg PO HS [facility] Last Admin: 09/16/18 22:04 Dose: 50 mg - Objective Vital Signs: Vital Signs Temperature 98.8 F 09/17/18 15:06 Pulse Rate 70 09/17/18 15:06 Respiratory Rate 20 09/17/18 15:06 Blood Pressure 129/63 09/17/18 15:06 O2 Sat by Pulse Oximetry (%) 92 L 09/16/18 21:00 Constitutional: Yes: No Distress Cardiovascular: Yes: Regular Rate and Rhythm, S1, S2 Respiratory: Yes: Rhonchi Gastrointestinal: Yes: Normal Bowel Sounds, Soft Labs: CBC, BMP 09/17/18 06:48 09/17/18 06:48 INR, PTT INR 1.35 (0.83-1.09) H 09/16/18 07:00 Assessment/Plan Pneumococcal pneumonia/ sepsis S/P TAVR Lung ca Continue zosyn pending final c/s
[2018-09-17] MEDS: QUEtiapine FUMARATE 50 MG TABLET PO SCH (22:08)
[2018-09-17] MEDS: ATORVASTATIN CA 20 MG TABLET (FP) PO SCH (22:08)
[2018-09-18] MEDS ORDERED: DEXTROSE 5%-WATER 100 ML IVPB ONE ×2 (02:47→09:25)
[2018-09-18] MEDS ORDERED: PIPERACILLIN/TAZOBACTAM 4.5 GM VIAL IVPB ONE ×2 (02:47→09:25)
[2018-09-18] MEDS: PIPERACILLIN/TAZOB 4.5 GM 4.5 GM in DEXTROSE 5%-WATER 100 ML IVPB SCH ×2 (02:53→09:46)
[2018-09-18] MEDS: VANCOMYCIN 1,250 MG in DEXTROSE 5%-WATER - 250 ML IVPB SCH (02:53)
[2018-09-18] MEDS: methylPREDNISolone NA SUCC 40 MG/1 ML VIAL IVPUSH SCH ×4 (02:53→23:01)
[2018-09-18] MEDS: METHADONE HCL 40 MG DISPERSABLE TABLET PO SCH (06:50)
[2018-09-18] MEDS: HEPARIN NA (PORCINE) 5,000 UNITS/ML 1ML VIAL SQ SCH ×3 (06:51→23:01)
[2018-09-18] MEDS: INSULIN SLIDING SCALE (NOVOLOG) 1 VIAL SQ SCH ×4 (06:51→23:02)
[2018-09-18] MEDS ORDERED: INSULIN (NOVOLOG) ASPART 100 UNITS/ML 10ML VIAL ONE (06:59)
[2018-09-18 07:31] LABS: BASO % 0.1 % (0-2.0); HEMATOCRIT 23.4 % (35.4-49); HEMOGLOBIN 7.6 GM/dL (11.7-16.9); LYMPH % 1.7 % (8-40); MCH 29.1 pg (25.7-33.7); MCHC 32.4 g/dl (32.0-35.9); MEAN CELL VOLUME 89.8 fl (80-96); MEAN PLT VOLUME 9.1 fl (7.5-11.1); NEUT % 91.2 % (42.8-82.8); PLATELET COUNT 130 K/MM3 (134-434); RDW 19.9 % (11.9-15.9); WHITE BLOOD COUNT 7.3 K/mm3 (4.0-10.0)
[2018-09-18 07:52] LABS: ALBUMIN 1.8 g/dl (3.4-5.0); ALK PHOS 98 U/L (45-117); ANION GAP 11 MMOL/L (8-16); BILIRUBIN,TOTAL 0.6 mg/dL (0.2-1); BLOOD UREA NITROGEN 51 mg/dL (7-18); CHLORIDE 93 mmol/L (98-107); CO2 28 mmol/L (21-32); CREATININE 1.2 mg/dL (0.55-1.3); GLUCOSE,RANDOM 253 mg/dL (74-106); MAGNESIUM 2.4 mg/dL (1.8-2.4); POTASSIUM 4.2 mmol/L (3.5-5.1); SGOT/AST 27 U/L (15-37); SGPT/ALT 24 U/L (13-61); SODIUM 132 mmol/L (136-145); TOT PROT 5.1 g/dl (6.4-8.2)
[2018-09-18] MEDS: ALBUTEROL SO4 2.5/IPRATROPIUM 0.5 INH SOL 3 ML VIAL.NEB. NEB SCH ×4 (08:21→20:23)
[2018-09-18] MEDS: LISINOPRIL 10 MG TABLET (FP) PO SCH (09:46)
[2018-09-18] MEDS: MULTIVITAMINS (DAILY MVI) TABLET (FP) PO SCH (09:47)
--- NOTE | 2018-09-18 10:40 | PN ---
Physical Exam: SUBJECTIVE: Patient seen and examined. Still feeling SOB. OBJECTIVE: Vital Signs Period Temp Pulse Resp BP Sys/Nicholas Pulse Ox Last 24 Hr 98.0 F-98.8 F 70-90 18-20 129-149/58-77 81-92 GENERAL: The patient is awake, alert, and fully oriented, in no acute distress. LUNGS: Bibasilar crackles HEART: Regular rate and rhythm, S1, S2 ABDOMEN: Soft, nontender, nondistended RUE: large area of ecchymosis surrounding peripheral AV site, no warmth, so fluctuance or swelling LE: Bilateral 1+ edema, 2+ pulses, warm, well-perfused NEUROLOGICAL: Cranial nerves II through XII grossly intact. Normal speech, steady gait PSYCH: Normal mood, normal affect. SKIN: Warm, dry, normal turgor; no Osler's nodes, no Janeway lesions Laboratory Results - last 24 hr 09/17/18 09/17/18 09/17/18 06:48 12:05 13:36 WBC RBC Hgb Hct MCV MCH MCHC RDW Plt Count MPV Absolute Neuts (auto) Neutrophils % Neutrophils % (Manual) 85.0 H Band Neutrophils % 4.0 Lymphocytes % Lymphocytes % (Manual) 2.0 L D Monocytes % Monocytes % (Manual) 6 Eosinophils % Eosinophils % (Manual) 0.0 Basophils % Basophils % (Manual) 0.0 Myelocytes % (Man) 0 Promyelocytes % (Man) 0 Blast Cells % (Manual) 0 Nucleated RBC % Metamyelocytes 0 Hypochromia 1+ Platelet Estimate Decreased Platelet Comment Present Polychromasia 1+ Poikilocytosis 0 Anisocytosis 2+ Microcytosis 2+ Macrocytosis 0 Ovalocytes 1+ Clara Cells 1+ Acanthocytes (Spur) 1+ Sodium Potassium Chloride Carbon Dioxide Anion Gap BUN Creatinine Creat Clearance w eGFR POC Glucometer 260 Random Glucose Calcium Magnesium Total Bilirubin AST ALT Alkaline Phosphatase Total Protein Albumin Blood Type A POSITIVE Antibody Screen Negative 09/17/18 09/17/18 09/17/18 17:10 17:54 21:54 WBC RBC Hgb Hct MCV MCH MCHC RDW Plt Count MPV Absolute Neuts (auto) Neutrophils % Neutrophils % (Manual) Band Neutrophils % Lymphocytes % Lymphocytes % (Manual) Monocytes % Monocytes % (Manual) Eosinophils % Eosinophils % (Manual) Basophils % Basophils % (Manual) Myelocytes % (Man) Promyelocytes % (Man) Blast Cells % (Manual) Nucleated RBC % Metamyelocytes Hypochromia Platelet Estimate Platelet Comment Polychromasia Poikilocytosis Anisocytosis Microcytosis Macrocytosis Ovalocytes [place] Cells Acanthocytes (Spur) Sodium Potassium Chloride Carbon Dioxide Anion Gap BUN Creatinine Creat Clearance w eGFR POC Glucometer 374 183 Random Glucose Calcium Magnesium Total Bilirubin AST ALT Alkaline Phosphatase Total Protein Albumin Blood Type A POSITIVE Antibody Screen 09/18/18 09/18/18 09/18/18 06:30 06:30 06:49 WBC 7.3 RBC 2.60 L Hgb 7.6 L Hct 23.4 L MCV 89.8 MCH 29.1 MCHC 32.4 RDW 19.9 H Plt Count 130 L D MPV 9.1 Absolute Neuts (auto) 6.6 Neutrophils % 91.2 H Neutrophils % (Manual) Band Neutrophils % Lymphocytes % 1.7 L Lymphocytes % (Manual) Monocytes % 7.0 Monocytes % (Manual) Eosinophils % 0.0 Eosinophils % (Manual) Basophils % 0.1 Basophils % (Manual) Myelocytes % (Man) Promyelocytes % (Man) Blast Cells % (Manual) Nucleated RBC % 1 H Metamyelocytes Hypochromia Platelet Estimate Platelet Comment Polychromasia Poikilocytosis Anisocytosis Microcytosis Macrocytosis Ovalocytes [place] Cells Acanthocytes (Spur) Sodium 132 L Potassium 4.2 Chloride 93 L Carbon Dioxide 28 Anion Gap 11 BUN 51 H Creatinine 1.2 Creat Clearance w eGFR > 60 POC Glucometer 296 Random Glucose 253 H Calcium 8.0 L Magnesium 2.4 Total Bilirubin 0.6 AST 27 ALT 24 Alkaline Phosphatase 98 Total Protein 5.1 L Albumin 1.8 L Blood Type Antibody Screen Active Medications Generic Name Dose Route Start Last Admin Trade Name Freq PRN Reason Stop Dose Admin Albuterol Sulfate 2 puff 09/15/18 22:15 Ventolin Hfa Inhaler - IH Q4H PRN SHORT OF BREATH/WHEEZING Albuterol/Ipratropium 1 amp 09/16/18 16:00 09/18/18 08:21 Duoneb - NEB 1 amp RQID [facility] Administration Atorvastatin Calcium 20 mg 09/16/18 22:00 09/17/18 22:08 Lipitor - PO 20 mg HS [facility] Administration Heparin Sodium (Porcine) 5,000 unit 09/15/18 22:30 09/18/18 06:51 Heparin - SQ 5,000 unit TID [facility] Administration Vancomycin HCl 1,250 mg/ 250 mls @ 166.667 mls/hr 09/16/18 14:00 09/18/18 02: 53 Dextrose IVPB 166.667 mls/hr Q12H [facility] Administration Protocol Piperacillin Sod/Tazobactam 100 mls @ 200 mls/hr 09/16/18 11:15 09/18/18 09: 46 Sod 4.5 gm/ Dextrose IVPB 200 mls/hr Q8H-IV [facility] Administration Protocol Insulin Aspart 1 vial 09/16/18 07:00 09/18/18 06:51 Novolog Vial Sliding Scale - SQ 6 units ACHS [facility] Administration Protocol Lisinopril 10 mg 09/16/18 10:00 09/18/18 09:46 Prinivil PO 10 mg DAILY [facility] Administration Methadone HCl 120 mg 09/16/18 09:00 09/18/18 06:50 Dolophine - PO 120 mg DAILY@0600 [facility] Administration Methylprednisolone Sodium Succinate 40 mg 09/16/18 15:00 09/18/18 09:46 Solu-Medrol - IVPUSH 40 mg Q6H-IV [facility] Administration Multivitamins/Minerals/Vitamin C 1 tab 09/16/18 10:00 09/18/18 09:47 Tab-A-Vit - PO 1 tab DAILY [facility] Administration Quetiapine Fumarate 50 mg 09/16/18 22:00 09/17/18 22:08 Seroquel - PO 50 mg HS [facility] Administration Microbiology 09/15/18 12:30 Blood - Peripheral Venous Blood Culture - Preliminary NO GROWTH OBTAINED AFTER 72 HOURS, INCUBATION TO CONTINUE FOR 2 DAYS. 09/16/18 12:05 Blood - Peripheral Venous Blood Culture - Preliminary NO GROWTH OBTAINED AFTER 48 HOURS, INCUBATION TO CONTINUE FOR 3 DAYS. 09/16/18 12:10 Blood - Peripheral Venous Blood Culture - Preliminary NO GROWTH OBTAINED AFTER 48 HOURS, INCUBATION TO CONTINUE FOR 3 DAYS. 09/15/18 12:30 Blood - Peripheral Venous Blood Culture - Final Streptococcus Pneumoniae 09/15/18 10:32 Sputum - Expectorated Gram Stain - Final 09/15/18 10:32 Sputum - Expectorated Sputum Culture - Final Klebsiella Pneumoniae Yeast Like Organism 09/15/18 23:07 Urine - Urine Clean Catch Urine Culture - Final NO GROWTH OBTAINED 09/16/18 13:06 Throat Throat Culture - Final Yeast Like Organism 09/15/18 23:07 Urine For Antigen Detection Legionella Antigen - Final 09/15/18 23:07 Urine For Antigen Detection Streptococcus pneumoniae Antigen (M - Final ASSESSMENT/PLAN: 63 year-old male with a PMH significant for HTN, systolic HR, s/p TAVR (2015), COPD, Type II NIDDM, lung, laryngeal, and renal cell carcinoma, presently on chemotherapy for lung cancer, methadone dependency Acute hypoxemic respiratory failure Klebsiella Pneumonia Chronic COPD --09/15 CT chest: extensive diffuse consolidation both lungs, significantly worse since 09/11 --09/15 Sputum (+) Klebsiella, sensitive to ceftriaxone; started on ceftriaxone today by ID (day #1); completed Vanc x 2 days, Zosyn x 2 days --IV steroids --duonebs Strep pneumoniae bacteremia Urine antigen (+) strep r/o prosthetic valve endocarditis --meets 3 minor Huber criteria: previous IV drug user/prosthetic valve, fever >38 degrees, positive strep culture --collect and send another set of blood cultures --TTE was done on 09/17, discuss PUSHPA with cardiology Systolic and diastolic heart failure Severe aortic stenosis s/p TAVR (2015) --06/21/18 Echo: mild cLVH, LV systolic function mildly reduced, impaired relaxation; trace MR; severe (post-TAVR) --09/17 Echo: LV borderline reduced, EF 50-55%, diastolic dysfunction; LAE; mild MR; severe aortic stenosis (post-TAVR) --BNP 4933 (<--1985 06/20/18) --signs of volume overload, BNP elevated, mild b/L LE edema; discussed with Dr. Godfrey, will hold off dirursis due to severe but if transfused, may need some lasix Anemia --Hgb 7.6 --type and screen done Hypertension --BP stable --continue lisinopril Hyperlipidemia --continue Lipitor Lung cancer --still needs two more rounds of chemotherapy Laryngeal cancer Renal cell carcinoma --no acute issues Methadone dependency --continue methadone Type II NIDDM ---Novolog sliding scale coverage FEN Fluids: PO intake adequate Electrolytes: replete as indicated Nutrition: low sodium, diabetic DVT prophylaxis: subq heparin Physical therapy Dispo: continues to require inpatient care. Full code. Visit type - Emergency Visit Emergency Visit: Yes ED Registration Date: 09/15/18 Care time: The patient presented to the Emergency Department on the above date and was hospitalized for further evaluation of their emergent condition. - New Patient This patient is new to me today: No - Critical Care Critical Care patient: No
[2018-09-18 11:14] LABS: ANISOCYTOSIS 1+; MACROCYTOSIS 0; PLATELET ESTIMATE DECREASED
--- NOTE | 2018-09-18 12:23 | PN ---
Progress Note (short form) - Note Progress Note: PULMONARY OOB AMBULATING IN ROOM AFEBRILE/VSS ANICTERIC DIMINISHED BREATH SOUNDS WITH SCATTERED CRACKLES S1S2 BS+ RIGHT UPPER EXT MILD EDEMA LABS/MICRO/MEDS/NOTES/IMAGES REVIEWED Pneumococcal pneumonia/ sepsis S/P TAVR Lung ca Continue zosyn pending final c/s R ALLEN GARZA Problem List - Problems (1) Acute hypoxemic respiratory failure Code(s): J96.01 - ACUTE RESPIRATORY FAILURE WITH HYPOXIA (2) Emphysema lung Code(s): J43.9 - EMPHYSEMA, UNSPECIFIED (3) Hypertension Code(s): I10 - ESSENTIAL (PRIMARY) HYPERTENSION (4) Lung cancer Code(s): C34.90 - MALIGNANT NEOPLASM OF UNSP PART OF UNSP BRONCHUS OR LUNG (5) Opioid dependence Code(s): F11.20 - OPIOID DEPENDENCE, UNCOMPLICATED (6) Renal cell carcinoma Code(s): C64.9 - MALIGNANT NEOPLASM OF UNSP KIDNEY, EXCEPT RENAL PELVIS (7) S/P TAVR (transcatheter aortic valve replacement) Code(s): Z95.2 - PRESENCE OF PROSTHETIC HEART VALVE (8) Throat cancer Code(s): C14.0 - MALIGNANT NEOPLASM OF PHARYNX, UNSPECIFIED (9) Type 2 diabetes mellitus Code(s): E11.9 - TYPE 2 DIABETES MELLITUS WITHOUT COMPLICATIONS
--- NOTE | 2018-09-18 12:43 | PN ---
Progress Note, Physician Chief Complaint: still sob History of Present Illness: 63 year old male with a PMH of Lung CA s/p RT, currently undergoing chemotherapy , last treatment early 08/2018, RCC, DM, HTN, chronic systolic CHF, aortic stenosis s/p TAVR and COPD. He presents now with SOB. Notes intermittent productive cough (baseline) as well as subjective fevers. Had PNA earlier this month. HCT 23%. BNP 4933. No chest pain. EKG Sinus tachycardia ar 118 with a NSIVCD Echo 09/17/18 normal EF, severe mean gradient 25 mmHg. - Current Medication List Current Medications: Active Medications Albuterol Sulfate (Ventolin Hfa Inhaler -) 2 puff IH Q4H PRN PRN Reason: SHORT OF BREATH/WHEEZING Albuterol/Ipratropium (Duoneb -) 1 amp NEB RQID [facility] Last Admin: 09/18/18 12:11 Dose: 1 amp Atorvastatin Calcium (Lipitor -) 20 mg PO HS [facility] Last Admin: 09/17/18 22:08 Dose: 20 mg Heparin Sodium (Porcine) (Heparin -) 5,000 unit SQ TID [facility] Last Admin: 09/18/18 06:51 Dose: 5,000 unit Vancomycin HCl 1,250 mg/ (Dextrose) 250 mls @ 166.667 mls/hr IVPB Q12H [facility]; Protocol Last Admin: 09/18/18 02:53 Dose: 166.667 mls/hr Piperacillin Sod/Tazobactam (Sod 4.5 gm/ Dextrose) 100 mls @ 200 mls/hr IVPB Q8H-IV [facility]; Protocol Last Admin: 09/18/18 09:46 Dose: 200 mls/hr Insulin Aspart (Novolog Vial Sliding Scale -) 1 vial SQ ACHS [facility]; Protocol Last Admin: 09/18/18 06:51 Dose: 6 units Lisinopril (Prinivil) 10 mg PO DAILY [facility] Last Admin: 09/18/18 09:46 Dose: 10 mg Methadone HCl (Dolophine -) 120 mg PO DAILY@0600 [facility] Last Admin: 09/18/18 06:50 Dose: 120 mg Methylprednisolone Sodium Succinate (Solu-Medrol -) 40 mg IVPUSH Q6H-IV [facility] Last Admin: 09/18/18 09:46 Dose: 40 mg Multivitamins/Minerals/Vitamin C (Tab-A-Vit -) 1 tab PO DAILY [facility] Last Admin: 09/18/18 09:47 Dose: 1 tab Quetiapine Fumarate (Seroquel -) 50 mg PO HS [facility] Last Admin: 09/17/18 22:08 Dose: 50 mg - Objective Vital Signs: Vital Signs Temperature 98.4 F 09/18/18 09:55 Pulse Rate 80 09/18/18 09:55 Respiratory Rate 20 09/18/18 09:55 Blood Pressure 136/63 09/18/18 09:55 O2 Sat by Pulse Oximetry (%) 92 L 09/17/18 21:00 Constitutional: Yes: No Distress, Calm Eyes: Yes: EOM Intact HENT: Yes: Normocephalic Neck: Yes: Trachea Midline Cardiovascular: Yes: Regular Rate and Rhythm, Murmur Respiratory: Yes: Rales (bilat bases) Musculoskeletal: Yes: WNL Extremities: Yes: WNL Edema: No Peripheral Pulses WNL: Yes Labs: CBC, BMP 09/18/18 06:30 09/18/18 06:30 INR, PTT INR 1.35 (0.83-1.09) H 09/16/18 07:00 Assessment/Plan 63 year old male with a PMH of Lung CA s/p RT, currently undergoing chemotherapy , last treatment early 08/2018, RCC, DM, HTN, chronic systolic CHF, aortic stenosis s/p TAVR and COPD. He presents now with SOB. Notes intermittent productive cough (baseline) as well as subjective fevers. Had PNA earlier this month. HCT 23%. BNP 4933. No chest pain. EKG Sinus tachycardia ar 118 with a NSIVCD Echo 09/17/18 normal EF, severe 25mmHg mean gradient. Elevated BNP Chest CT with mediastinal lymph nodes and pulmonary consolidations. Hgb level trending down. Low albumin level. Continue diuresis for now. Continue pulm rx. Poor redo TAVR candidate given CT chest findings. Continue Lisinopril for bp control. If gets transfused monitor for possible need for furosemide.
--- NOTE | 2018-09-18 13:16 | PN ---
Progress Note, Physician History of Present Illness: Blood c/s + Pneumococcus Sputum c/s Klebsiella Unable to take a deep breath Still with cough- reports greenish sputum + pleuritic cp Still with c/o thrush Temps, WBC down - Current Medication List Current Medications: Active Medications Albuterol Sulfate (Ventolin Hfa Inhaler -) 2 puff IH Q4H PRN PRN Reason: SHORT OF BREATH/WHEEZING Albuterol/Ipratropium (Duoneb -) 1 amp NEB RQID [facility] Last Admin: 09/18/18 12:11 Dose: 1 amp Atorvastatin Calcium (Lipitor -) 20 mg PO HS [facility] Last Admin: 09/17/18 22:08 Dose: 20 mg Heparin Sodium (Porcine) (Heparin -) 5,000 unit SQ TID [facility] Last Admin: 09/18/18 06:51 Dose: 5,000 unit Vancomycin HCl 1,250 mg/ (Dextrose) 250 mls @ 166.667 mls/hr IVPB Q12H [facility]; Protocol Last Admin: 09/18/18 02:53 Dose: 166.667 mls/hr Piperacillin Sod/Tazobactam (Sod 4.5 gm/ Dextrose) 100 mls @ 200 mls/hr IVPB Q8H-IV [facility]; Protocol Last Admin: 09/18/18 09:46 Dose: 200 mls/hr Insulin Aspart (Novolog Vial Sliding Scale -) 1 vial SQ ACHS [facility]; Protocol Last Admin: 09/18/18 06:51 Dose: 6 units Lisinopril (Prinivil) 10 mg PO DAILY [facility] Last Admin: 09/18/18 09:46 Dose: 10 mg Methadone HCl (Dolophine -) 120 mg PO DAILY@0600 [facility] Last Admin: 09/18/18 06:50 Dose: 120 mg Methylprednisolone Sodium Succinate (Solu-Medrol -) 40 mg IVPUSH Q6H-IV [facility] Last Admin: 09/18/18 09:46 Dose: 40 mg Multivitamins/Minerals/Vitamin C (Tab-A-Vit -) 1 tab PO DAILY [facility] Last Admin: 09/18/18 09:47 Dose: 1 tab Quetiapine Fumarate (Seroquel -) 50 mg PO [facility] Last Admin: 09/17/18 22:08 Dose: 50 mg - Objective Vital Signs: Vital Signs Temperature 98.4 F 09/18/18 09:55 Pulse Rate 80 09/18/18 09:55 Respiratory Rate 20 09/18/18 09:55 Blood Pressure 136/63 09/18/18 09:55 O2 Sat by Pulse Oximetry (%) 92 L 09/17/18 21:00 Constitutional: Yes: No Distress Eyes: Yes: Conjunctiva Clear HENT: Yes: Other (+ thrush) Cardiovascular: Yes: Regular Rate and Rhythm, S1, S2 Respiratory: Yes: Rhonchi Gastrointestinal: Yes: Normal Bowel Sounds, Soft. No: Tenderness Edema: Yes Labs: CBC, BMP 09/18/18 06:30 09/18/18 06:30 INR, PTT INR 1.35 (0.83-1.09) H 09/16/18 07:00 Assessment/Plan Pneumococcal pneumonia/ sepsis S/P TAVR Lung ca Substitute ceftriaxone 2gm IVPB q24h PO Fluconazole 100mg qd for thrush
[2018-09-18] MEDS: CEFTRIAXONE 2 GM in DEXTROSE 5%-WATER - 50 ML IVPB SCH (15:00)
[2018-09-18] MEDS ORDERED: DEXTROSE 5%-WATER - 50 ML IVPB ONE (16:09)
[2018-09-18] MEDS ORDERED: PT OWN MED DRAWER 7, Y5N ONE (16:09)
[2018-09-18] MEDS: FLUCONAZOLE 100 MG TABLET (UD) PO SCH (16:21)
[2018-09-18] MEDS: QUEtiapine FUMARATE 50 MG TABLET PO SCH (23:01)
[2018-09-18] MEDS: ATORVASTATIN CA 20 MG TABLET (FP) PO SCH (23:01)
[2018-09-19] MEDS: methylPREDNISolone NA SUCC 40 MG/1 ML VIAL IVPUSH SCH ×3 (03:05→18:36)
[2018-09-19] MEDS: METHADONE HCL 40 MG DISPERSABLE TABLET PO SCH (07:06)
[2018-09-19] MEDS: INSULIN SLIDING SCALE (NOVOLOG) 1 VIAL SQ SCH ×4 (07:06→22:19)
[2018-09-19] MEDS: HEPARIN NA (PORCINE) 5,000 UNITS/ML 1ML VIAL SQ SCH ×3 (07:06→22:19)
[2018-09-19] MEDS: ALBUTEROL SO4 2.5/IPRATROPIUM 0.5 INH SOL 3 ML VIAL.NEB. NEB SCH ×4 (07:43→21:19)
[2018-09-19] MEDS ORDERED: INSULIN (NOVOLOG) ASPART 100 UNITS/ML 10ML VIAL ONE (07:56)
[2018-09-19] MEDS ORDERED: DEXTROSE 5%-WATER - 50 ML IVPB ONE (09:15)
[2018-09-19] MEDS ORDERED: PT OWN MED DRAWER 7, Y5N ONE (09:15)
[2018-09-19] MEDS: LISINOPRIL 10 MG TABLET (FP) PO SCH (09:49)
[2018-09-19] MEDS: CEFTRIAXONE 2 GM in DEXTROSE 5%-WATER - 50 ML IVPB SCH (09:49)
[2018-09-19] MEDS: FLUCONAZOLE 100 MG TABLET (UD) PO SCH (09:49)
[2018-09-19] MEDS: MULTIVITAMINS (DAILY MVI) TABLET (FP) PO SCH (09:49)
[2018-09-19 10:56] LABS: BASO % 0.4 % (0-2.0); EOS % 0.1 % (0-4.5); HEMATOCRIT 24.6 % (35.4-49); HEMOGLOBIN 8.5 GM/dL (11.7-16.9); LYMPH % 2.6 % (8-40); MCHC 34.7 g/dl (32.0-35.9); MEAN CELL VOLUME 89.6 fl (80-96); MEAN PLT VOLUME 9.5 fl (7.5-11.1); MONO % 5.9 % (3.8-10.2); PLATELET COUNT 165 K/MM3 (134-434); RBC 2.75 M/mm3 (4.00-5.60); RDW 19.9 % (11.9-15.9); WHITE BLOOD COUNT 8.1 K/mm3 (4.0-10.0)
[2018-09-19 11:35] LABS: ALBUMIN 2.1 g/dl (3.4-5.0); ALK PHOS 102 U/L (45-117); ANION GAP 9 MMOL/L (8-16); BILIRUBIN,TOTAL 0.4 mg/dL (0.2-1); BLOOD UREA NITROGEN 44 mg/dL (7-18); CHLORIDE 97 mmol/L (98-107); CO2 29 mmol/L (21-32); CREATININE 1.2 mg/dL (0.55-1.3); GLUCOSE,RANDOM 237 mg/dL (74-106); PHOSPHOROUS 5.3 mg/dL (2.5-4.9); POTASSIUM 4.4 mmol/L (3.5-5.1); SGOT/AST 23 U/L (15-37); SGPT/ALT 29 U/L (13-61); SODIUM 134 mmol/L (136-145); TOT PROT 5.5 g/dl (6.4-8.2)
[2018-09-19 11:55] LABS: ANISOCYTOSIS 1+; MACROCYTOSIS 1+; OVALOCYTE 1+
[2018-09-19 12:03] LABS: PLATELET ESTIMATE ADEQUATE
--- NOTE | 2018-09-19 14:07 | PN ---
Progress Note (short form) - Note Progress Note: starting to feel better still with productive cough, now on nasal canulla Vital Signs Period Temp Pulse Resp BP Sys/Nicholas Pulse Ox Last 24 Hr 97.7 F-98.6 F 69-90 18-22 130-143/60-73 90-96 no thrush cor rrr lungs bilateral rhonchi abd soft, nontender ext no edema CBC, BMP 09/19/18 10:44 09/19/18 10:44 Microbiology 09/15/18 12:30 Blood - Peripheral Venous Blood Culture - Preliminary NO GROWTH OBTAINED AFTER 96 HOURS, INCUBATION TO CONTINUE FOR 1 DAYS. 09/16/18 12:10 Blood - Peripheral Venous Blood Culture - Preliminary NO GROWTH OBTAINED AFTER 72 HOURS, INCUBATION TO CONTINUE FOR 2 DAYS. 09/16/18 12:05 Blood - Peripheral Venous Blood Culture - Preliminary NO GROWTH OBTAINED AFTER 72 HOURS, INCUBATION TO CONTINUE FOR 2 DAYS. 09/15/18 12:30 Blood - Peripheral Venous Blood Culture - Final Streptococcus Pneumoniae 09/15/18 10:32 Sputum - Expectorated Gram Stain - Final 09/15/18 10:32 Sputum - Expectorated Sputum Culture - Final Klebsiella Pneumoniae Yeast Like Organism 09/15/18 23:07 Urine - Urine Clean Catch Urine Culture - Final NO GROWTH OBTAINED 09/16/18 13:06 Throat Throat Culture - Final Yeast Like Organism 09/15/18 23:07 Urine For Antigen Detection Legionella Antigen - Final 09/15/18 23:07 Urine For Antigen Detection Streptococcus pneumoniae Antigen (M - Final Current Medications Albuterol Sulfate (Ventolin Hfa Inhaler -) 2 puff IH Q4H PRN PRN Reason: SHORT OF BREATH/WHEEZING Albuterol/Ipratropium (Duoneb -) 1 amp NEB RQID [facility] Last Admin: 09/19/18 11:45 Dose: 1 amp Atorvastatin Calcium (Lipitor -) 20 mg PO HS [facility] Last Admin: 09/18/18 23:01 Dose: 20 mg Fluconazole (Diflucan -) 100 mg PO DAILY [facility] Last Admin: 09/19/18 09:49 Dose: 100 mg Heparin Sodium (Porcine) (Heparin -) 5,000 unit SQ TID [facility] Last Admin: 09/19/18 07:06 Dose: 5,000 unit Ceftriaxone Sodium 2 gm/ (Dextrose) 50 mls @ 100 mls/hr IVPB DAILY [facility]; Protocol Last Admin: 09/19/18 09:49 Dose: 100 mls/hr Insulin Aspart (Novolog Vial Sliding Scale -) 1 vial SQ ACHS [facility]; Protocol Last Admin: 09/19/18 12:09 Dose: 6 units Lisinopril (Prinivil) 10 mg PO DAILY [facility] Last Admin: 09/19/18 09:49 Dose: 10 mg Methadone HCl (Dolophine -) 120 mg PO DAILY@0600 [facility] Last Admin: 09/19/18 07:06 Dose: 120 mg Methylprednisolone Sodium Succinate (Solu-Medrol -) 40 mg IVPUSH Q6H-IV [facility] Last Admin: 09/19/18 09:49 Dose: 40 mg Multivitamins/Minerals/Vitamin C (Tab-A-Vit -) 1 tab PO DAILY [facility] Last Admin: 09/19/18 09:49 Dose: 1 tab Quetiapine Fumarate (Seroquel -) 50 mg PO HS [facility] Last Admin: 09/18/18 23:01 Dose: 50 mg a/p hypoxemic resp failure extensive pneumonia pneumococcal bacteremia s/p tavr lung cancer-completed radiation, still on chemo clinically improved day #4 antiibotics now on ceftriaxone history of copd s/p tavr- pneumococcal bacteremia- will d/c cardiology history of RCC Problem List - Problems (1) Acute hypoxemic respiratory failure Code(s): J96.01 - ACUTE RESPIRATORY FAILURE WITH HYPOXIA (2) PNA (pneumonia) Code(s): J18.9 - PNEUMONIA, UNSPECIFIED ORGANISM Qualifiers: Qualified Code(s): J18.1 - Lobar pneumonia, unspecified organism (3) Bacteremia Code(s): R78.81 - BACTEREMIA (4) Lung cancer Code(s): C34.90 - MALIGNANT NEOPLASM OF UNSP PART OF UNSP BRONCHUS OR LUNG (5) S/P TAVR (transcatheter aortic valve replacement) Code(s): Z95.2 - PRESENCE OF PROSTHETIC HEART VALVE
--- NOTE | 2018-09-19 14:08 | PN ---
Progress Note, Physician History of Present Illness: pulmonary alert,feeling better,less dyspneic,less cough - Current Medication List Current Medications: Active Medications Albuterol Sulfate (Ventolin Hfa Inhaler -) 2 puff IH Q4H PRN PRN Reason: SHORT OF BREATH/WHEEZING Albuterol/Ipratropium (Duoneb -) 1 amp NEB RQID [facility] Last Admin: 09/19/18 11:45 Dose: 1 amp Atorvastatin Calcium (Lipitor -) 20 mg PO HS [facility] Last Admin: 09/18/18 23:01 Dose: 20 mg Fluconazole (Diflucan -) 100 mg PO DAILY [facility] Last Admin: 09/19/18 09:49 Dose: 100 mg Heparin Sodium (Porcine) (Heparin -) 5,000 unit SQ TID [facility] Last Admin: 09/19/18 07:06 Dose: 5,000 unit Ceftriaxone Sodium 2 gm/ (Dextrose) 50 mls @ 100 mls/hr IVPB DAILY [facility]; Protocol Last Admin: 09/19/18 09:49 Dose: 100 mls/hr Insulin Aspart (Novolog Vial Sliding Scale -) 1 vial SQ ACHS [facility]; Protocol Last Admin: 09/19/18 12:09 Dose: 6 units Lisinopril (Prinivil) 10 mg PO DAILY [facility] Last Admin: 09/19/18 09:49 Dose: 10 mg Methadone HCl (Dolophine -) 120 mg PO DAILY@0600 [facility] Last Admin: 09/19/18 07:06 Dose: 120 mg Methylprednisolone Sodium Succinate (Solu-Medrol -) 40 mg IVPUSH Q6H-IV [facility] Last Admin: 09/19/18 09:49 Dose: 40 mg Multivitamins/Minerals/Vitamin C (Tab-A-Vit -) 1 tab PO DAILY [facility] Last Admin: 09/19/18 09:49 Dose: 1 tab Quetiapine Fumarate (Seroquel -) 50 mg PO [facility] Last Admin: 09/18/18 23:01 Dose: 50 mg - Objective Vital Signs: Vital Signs Temperature 98 F 09/19/18 09:49 Pulse Rate 87 09/19/18 11:47 Respiratory Rate 20 09/19/18 09:49 Blood Pressure 132/60 09/19/18 09:49 O2 Sat by Pulse Oximetry (%) 90 L 09/19/18 11:47 Constitutional: Yes: Well Nourished, Calm Eyes: Yes: WNL HENT: Yes: WNL Neck: Yes: WNL Cardiovascular: Yes: Regular Rate and Rhythm, S1, S2 Respiratory: Yes: Rhonchi (scattered rhonchi) Gastrointestinal: Yes: Normal Bowel Sounds, Soft Extremities: Yes: WNL Edema: No Labs: CBC, BMP 09/19/18 10:44 09/19/18 10:44 INR, PTT INR 1.35 (0.83-1.09) H 09/16/18 07:00 Assessment/Plan Problem List - Problems (1) Acute hypoxemic respiratory failure Code(s): J96.01 - ACUTE RESPIRATORY FAILURE WITH HYPOXIA (2) Emphysema lung Code(s): J43.9 - EMPHYSEMA, UNSPECIFIED (3) Hypertension Code(s): I10 - ESSENTIAL (PRIMARY) HYPERTENSION (4) Lung cancer Code(s): C34.90 - MALIGNANT NEOPLASM OF UNSP PART OF UNSP BRONCHUS OR LUNG (5) Opioid dependence Code(s): F11.20 - OPIOID DEPENDENCE, UNCOMPLICATED (6) Renal cell carcinoma Code(s): C64.9 - MALIGNANT NEOPLASM OF UNSP KIDNEY, EXCEPT RENAL PELVIS (7) S/P TAVR (transcatheter aortic valve replacement) Code(s): Z95.2 - PRESENCE OF PROSTHETIC HEART VALVE (8) Throat cancer Code(s): C14.0 - MALIGNANT NEOPLASM OF PHARYNX, UNSPECIFIED (9) Type 2 diabetes mellitus Code(s): E11.9 - TYPE 2 DIABETES MELLITUS WITHOUT COMPLICATIONS Assessment/Plan Dense bilateral consolidative processes which have developed since 08/22/18 H/O RT to chest and concurrent chemotx. Hypoxemic respiratory failure possibly due to RT pneumonitis/metastatic disease/ superimposed acute infectious process ANEMIA Fio2 to titrate in order to keep spo2 90% or greater steroids antibiotics INHALED BRONCHODILATORS Bronchodilators DVT prophylaxsis glycemic control f/u chest x-rays f/u chest ct outpatient Normal transfusion threshold DR MCCALL
--- NOTE | 2018-09-19 15:05 | PN ---
Progress Note, Physician Chief Complaint: SOB and cough improving History of Present Illness: 63 year old male with a PMH of Lung CA s/p RT, urrently undergoing chemotherapy , last treatment early 08/2018, RCC, DM, HTN, and COPD. He presents now with SOB. Notes intermittent productive cough (baseline) as well as subjective fevers. Had PNA earlier this month. HCT 23%. BNP 4933. No chest pain. EKG Sinus tachycardia ar 118 with a NSIVCD - Current Medication List Current Medications: Active Medications Albuterol Sulfate (Ventolin Hfa Inhaler -) 2 puff IH Q4H PRN PRN Reason: SHORT OF BREATH/WHEEZING Albuterol/Ipratropium (Duoneb -) 1 amp NEB RQID [facility] Last Admin: 09/19/18 11:45 Dose: 1 amp Atorvastatin Calcium (Lipitor -) 20 mg PO HS [facility] Last Admin: 09/18/18 23:01 Dose: 20 mg Fluconazole (Diflucan -) 100 mg PO DAILY [facility] Last Admin: 09/19/18 09:49 Dose: 100 mg Heparin Sodium (Porcine) (Heparin -) 5,000 unit SQ TID [facility] Last Admin: 09/19/18 07:06 Dose: 5,000 unit Ceftriaxone Sodium 2 gm/ (Dextrose) 50 mls @ 100 mls/hr IVPB DAILY [facility]; Protocol Last Admin: 09/19/18 09:49 Dose: 100 mls/hr Insulin Aspart (Novolog Vial Sliding Scale -) 1 vial SQ ACHS [facility]; Protocol Last Admin: 09/19/18 12:09 Dose: 6 units Lisinopril (Prinivil) 10 mg PO DAILY [facility] Last Admin: 09/19/18 09:49 Dose: 10 mg Methadone HCl (Dolophine -) 120 mg PO DAILY@0600 [facility] Last Admin: 09/19/18 07:06 Dose: 120 mg Methylprednisolone Sodium Succinate (Solu-Medrol -) 40 mg IVPUSH Q8H [facility] Multivitamins/Minerals/Vitamin C (Tab-A-Vit -) 1 tab PO DAILY [facility] Last Admin: 09/19/18 09:49 Dose: 1 tab Quetiapine Fumarate (Seroquel -) 50 mg PO HS [facility] Last Admin: 09/18/18 23:01 Dose: 50 mg - Objective Vital Signs: Vital Signs Temperature 98.1 F 09/19/18 14:04 Pulse Rate 90 09/19/18 14:04 Respiratory Rate 18 09/19/18 14:04 Blood Pressure 142/73 09/19/18 14:04 O2 Sat by Pulse Oximetry (%) 90 L 09/19/18 11:47 Constitutional: Yes: No Distress Neck: Yes: Supple Cardiovascular: Yes: Regular Rate and Rhythm, Murmur (+2/6 HSM RUSB), S1, S2. No: JVD Respiratory: Yes: Rales Gastrointestinal: Yes: Soft Edema: LLE: 1+, RLE: 1+ Labs: CBC, BMP 09/19/18 10:44 09/19/18 10:44 INR, PTT INR 1.35 (0.83-1.09) H 09/16/18 07:00 Assessment/Plan 63 year old male with a PMH of Lung CA s/p RT, currently undergoing chemotherapy , last treatment early 08/2018, RCC, DM, HTN, chronic systolic CHF, aortic stenosis s/p TAVR and COPD. He presents now with SOB. Notes intermittent productive cough (baseline) as well as subjective fevers. Had PNA earlier this month. HCT 23%. BNP 4933. No chest pain. EKG Sinus tachycardia ar 118 with a NSIVCD Echo 09/17/18 normal EF, severe 25mmHg mean gradient. Elevated BNP Chest CT with mediastinal lymph nodes and pulmonary consolidations. Hgb level trending down. Low albumin level. Continue pulm rx. On antibiotics for infection. Poor redo TAVR candidate given CT chest findings. Continue Lisinopril for bp control. If gets transfused monitor for possible need for furosemide. Symptoms likely pulmonary and infection related. 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 Estes. Will sign off
--- NOTE | 2018-09-19 17:05 | PN ---
Teaching Attending Note Name of Resident: Sandee Bryan ATTENDING PHYSICIAN STATEMENT I saw and evaluated the patient. I reviewed the resident's note and discussed the case with the resident. I agree with the resident's findings and plan as documented with exceptions below. SUBJECTIVE: Patient seen and examined, breathing improved, no complaints. OBJECTIVE: Vital Signs Period Temp Pulse Resp BP Sys/Nicholas Pulse Ox Last 24 Hr 97.7 F-98.1 F 69-90 18-22 130-143/60-73 90-96 Intake & Output 09/16/18 09/17/18 09/18/18 09/19/18 23:59 23:59 23:59 23:59 Intake Total 770 1300 1050 100 Balance 770 1300 1050 100 Weight 179 lb 1.6 oz 179 lb General:sitting in bed in no acute distress Neck: Soft, supple, no JVD Chest: scattered bilateral rales, decreased air entry Abdomen;Soft, NT, ND extremities: no edema Home Medications Medication Instructions Recorded Albuterol 2.5/Ipratropium 0.5 1 neb IH QID 09/15/18 [Duoneb -] Aspirin [ASA -] 81 mg PO DAILY 09/15/18 Glipizide 5 mg PO DAILY 09/15/18 Lisinopril 10 mg PO DAILY 09/15/18 Metformin HCl [Metformin HCl ER] 1,000 mg PO BID 09/15/18 Methadone [Dolophine -] 120 mg PO DAILY 09/15/18 Multivitamins [Tab-A-Vit -] 1 tab PO DAILY 09/15/18 Simvastatin 40 mg PO HS 09/15/18 Active Medications Albuterol Sulfate (Ventolin Hfa Inhaler -) 2 puff IH Q4H PRN PRN Reason: SHORT OF BREATH/WHEEZING Albuterol/Ipratropium (Duoneb -) 1 amp NEB RQID [facility] Last Admin: 09/19/18 15:47 Dose: 1 amp Atorvastatin Calcium (Lipitor -) 20 mg PO HS [facility] Last Admin: 09/18/18 23:01 Dose: 20 mg Fluconazole (Diflucan -) 100 mg PO DAILY [facility] Last Admin: 09/19/18 09:49 Dose: 100 mg Heparin Sodium (Porcine) (Heparin -) 5,000 unit SQ TID [facility] Last Admin: 09/19/18 15:28 Dose: Not Given Ceftriaxone Sodium 2 gm/ (Dextrose) 50 mls @ 100 mls/hr IVPB DAILY [facility]; Protocol Last Admin: 09/19/18 09:49 Dose: 100 mls/hr Insulin Aspart (Novolog Vial Sliding Scale -) 1 vial SQ ACHS [facility]; Protocol Last Admin: 09/19/18 12:09 Dose: 6 units Lisinopril (Prinivil) 10 mg PO DAILY [facility] Last Admin: 09/19/18 09:49 Dose: 10 mg Methadone HCl (Dolophine -) 120 mg PO DAILY@0600 [facility] Last Admin: 09/19/18 07:06 Dose: 120 mg Methylprednisolone Sodium Succinate (Solu-Medrol -) 40 mg IVPUSH Q8H-IV [facility] Multivitamins/Minerals/Vitamin C (Tab-A-Vit -) 1 tab PO DAILY [facility] Last Admin: 09/19/18 09:49 Dose: 1 tab Quetiapine Fumarate (Seroquel -) 50 mg PO HS [facility] Last Admin: 09/18/18 23:01 Dose: 50 mg Laboratory Results - last 24 hr 09/18/18 09/19/18 09/19/18 22:56 07:06 10:44 WBC 8.1 RBC 2.75 L Hgb 8.5 L Hct 24.6 L MCV 89.6 MCH 31.0 MCHC 34.7 RDW 19.9 H Plt Count 165 D MPV 9.5 Absolute Neuts (auto) 7.4 Neutrophils % 91.0 H Neutrophils % (Manual) 94.9 H Band Neutrophils % 0.0 Lymphocytes % 2.6 L D Lymphocytes % (Manual) 1.0 L D Monocytes % 5.9 Monocytes % (Manual) 4 Eosinophils % 0.1 D Eosinophils % (Manual) 0.0 Basophils % 0.4 D Basophils % (Manual) 0.0 Myelocytes % (Man) 0 Promyelocytes % (Man) 0 Blast Cells % (Manual) 0 Nucleated RBC % 0 Metamyelocytes 0 Hypochromia 0 Platelet Estimate Adequate Polychromasia 2+ Poikilocytosis 0 Anisocytosis 1+ Microcytosis 1+ Macrocytosis 1+ Ovalocytes 1+ Schistocytes 1+ Sodium Potassium Chloride Carbon Dioxide Anion Gap BUN Creatinine Creat Clearance w eGFR POC Glucometer 275 212 Random Glucose Calcium Phosphorus Magnesium Total Bilirubin AST ALT Alkaline Phosphatase Total Protein Albumin 09/19/18 09/19/18 10:44 12:08 WBC RBC Hgb Hct MCV MCH MCHC RDW Plt Count MPV Absolute Neuts (auto) Neutrophils % Neutrophils % (Manual) Band Neutrophils % Lymphocytes % Lymphocytes % (Manual) Monocytes % Monocytes % (Manual) Eosinophils % Eosinophils % (Manual) Basophils % Basophils % (Manual) Myelocytes % (Man) Promyelocytes % (Man) Blast Cells % (Manual) Nucleated RBC % Metamyelocytes Hypochromia Platelet Estimate Polychromasia Poikilocytosis Anisocytosis Microcytosis Macrocytosis Ovalocytes Schistocytes Sodium 134 L Potassium 4.4 Chloride 97 L Carbon Dioxide 29 Anion Gap 9 BUN 44 H Creatinine 1.2 Creat Clearance w eGFR > 60 POC Glucometer 274 Random Glucose 237 H Calcium 8.0 L Phosphorus 5.3 H Magnesium 2.0 Total Bilirubin 0.4 AST 23 ALT 29 Alkaline Phosphatase 102 Total Protein 5.5 L Albumin 2.1 L Microbiology 09/15/18 12:30 Blood - Peripheral Venous Blood Culture - Preliminary NO GROWTH OBTAINED AFTER 96 HOURS, INCUBATION TO CONTINUE FOR 1 DAYS. 09/16/18 12:10 Blood - Peripheral Venous Blood Culture - Preliminary NO GROWTH OBTAINED AFTER 72 HOURS, INCUBATION TO CONTINUE FOR 2 DAYS. 09/16/18 12:05 Blood - Peripheral Venous Blood Culture - Preliminary NO GROWTH OBTAINED AFTER 72 HOURS, INCUBATION TO CONTINUE FOR 2 DAYS. 09/15/18 12:30 Blood - Peripheral Venous Blood Culture - Final Streptococcus Pneumoniae 09/15/18 10:32 Sputum - Expectorated Gram Stain - Final 09/15/18 10:32 Sputum - Expectorated Sputum Culture - Final Klebsiella Pneumoniae Yeast Like Organism 09/15/18 23:07 Urine - Urine Clean Catch Urine Culture - Final NO GROWTH OBTAINED 09/16/18 13:06 Throat Throat Culture - Final Yeast Like Organism 09/15/18 23:07 Urine For Antigen Detection Legionella Antigen - Final 09/15/18 23:07 Urine For Antigen Detection Streptococcus pneumoniae Antigen (M - Final CT chest results reviewed 06/21/18 Echo: mild cLVH, LV systolic function mildly reduced, impaired relaxation; trace MR; severe (post-TAVR) --09/17 Echo: LV borderline reduced, EF 50-55%, diastolic dysfunction; LAE; mild MR; severe aortic stenosis (post-TAVR) ASSESSMENT AND PLAN: 63 year-old male with a PMH significant for HTN, systolic HR, s/p TAVR (2016), COPD, Type II NIDDM, lung, laryngeal, and renal cell carcinoma, lung ca s/p radiation, presently on chemotherapy , methadone dependency admitted with shortness of breath. -Acute hypoxemic respiratory failure -Multilobar PNA -Pneumococcal bacteremia -Sputum cx with Klebsiella -Lung ca s/p radiation, on chemotherapy -Oral candidiasis -severe s/p TAVR -Trace Mitral regurgitation -h/o IVDU -Methadone dependence -Chronic diastolic heart failure -Anemia -HTN -HLD -Laryngeal Ca -Renal Cell Carcinoma -NIDDM Plan: ID input noted. Ceftriaxone day 2, Diflucan day 2. 2D Echo results reviewed. Neg blood cx/clinical improvement, PUSHPA unlikely benefit currently, monitor clinically and follow up with ID/cardiology. Blood cx from 09/17 neg so far. Repeat from 09/19 sent, follow up. Hold off standing diuresis. Will need lasix if transfused. Monitor h/h. Lisinopril/Lipitor ISS, diabetic diet. Outpatient oncology follow up for additional 2 rounds of chemotherapy when improved. dvTPPX heparin Dispo in 1-2 days, pending ID input, clinical improvement and disposition arrangements. Home oxygen needs assessment, PT eval. Plan discussed with patient and nursing, all questions answered.
--- NOTE | 2018-09-19 17:53 | PN ---
Physical Exam: SUBJECTIVE: Patient seen and examined at bed side this morning. States his Shortness of breath has improved since admission. Denies chest pain, palpitation , abdominal pain, nausea or vomiting. OBJECTIVE: Vital Signs Period Temp Pulse Resp BP Sys/Nicholas Pulse Ox Last 24 Hr 97.7 F-98.1 F 69-90 18-22 130-143/60-73 90-96 GENERAL: Middle aged male, sitting comfortably in bed, is awake, alert, and fully oriented, in no acute distress. HEAD: Normal with no signs of trauma. EYES: EOM intact, no pallor or icterus. ENT: Ears normal, moist mucous membranes. NECK: Supple. LUNGS: B/L coarse breath sounds bilaterally, occasional wheeze. HEART: Regular rate and rhythm, S1, S2 with systolic murmur. ABDOMEN: Soft, nontender, no organomegaly. EXTREMITIES: 2+ pulses, warm, well-perfused, no edema. NEUROLOGICAL: No facial droop. Normal speech, gait not observed. PSYCH: Normal mood, normal affect. SKIN: Warm, dry, normal turgor, no rashes or lesions noted Laboratory Results - last 24 hr 09/18/18 09/19/18 09/19/18 22:56 07:06 10:44 WBC 8.1 RBC 2.75 L Hgb 8.5 L Hct 24.6 L MCV 89.6 MCH 31.0 MCHC 34.7 RDW 19.9 H Plt Count 165 D MPV 9.5 Absolute Neuts (auto) 7.4 Neutrophils % 91.0 H Neutrophils % (Manual) 94.9 H Band Neutrophils % 0.0 Lymphocytes % 2.6 L D Lymphocytes % (Manual) 1.0 L D Monocytes % 5.9 Monocytes % (Manual) 4 Eosinophils % 0.1 D Eosinophils % (Manual) 0.0 Basophils % 0.4 D Basophils % (Manual) 0.0 Myelocytes % (Man) 0 Promyelocytes % (Man) 0 Blast Cells % (Manual) 0 Nucleated RBC % 0 Metamyelocytes 0 Hypochromia 0 Platelet Estimate Adequate Polychromasia 2+ Poikilocytosis 0 Anisocytosis 1+ Microcytosis 1+ Macrocytosis 1+ Ovalocytes 1+ Schistocytes 1+ Sodium Potassium Chloride Carbon Dioxide Anion Gap BUN Creatinine Creat Clearance w eGFR POC Glucometer 275 212 Random Glucose Calcium Phosphorus Magnesium Total Bilirubin AST ALT Alkaline Phosphatase Total Protein Albumin 09/19/18 09/19/18 10:44 12:08 WBC RBC Hgb Hct MCV MCH MCHC RDW Plt Count MPV Absolute Neuts (auto) Neutrophils % Neutrophils % (Manual) Band Neutrophils % Lymphocytes % Lymphocytes % (Manual) Monocytes % Monocytes % (Manual) Eosinophils % Eosinophils % (Manual) Basophils % Basophils % (Manual) Myelocytes % (Man) Promyelocytes % (Man) Blast Cells % (Manual) Nucleated RBC % Metamyelocytes Hypochromia Platelet Estimate Polychromasia Poikilocytosis Anisocytosis Microcytosis Macrocytosis Ovalocytes Schistocytes Sodium 134 L Potassium 4.4 Chloride 97 L Carbon Dioxide 29 Anion Gap 9 BUN 44 H Creatinine 1.2 Creat Clearance w eGFR > 60 POC Glucometer 274 Random Glucose 237 H Calcium 8.0 L Phosphorus 5.3 H Magnesium 2.0 Total Bilirubin 0.4 AST 23 ALT 29 Alkaline Phosphatase 102 Total Protein 5.5 L Albumin 2.1 L Active Medications Generic Name Dose Route Start Last Admin Trade Name Freq PRN Reason Stop Dose Admin Albuterol Sulfate 2 puff 09/15/18 22:15 Ventolin Hfa Inhaler - IH Q4H PRN SHORT OF BREATH/WHEEZING Albuterol/Ipratropium 1 amp 09/16/18 16:00 09/19/18 15:47 Duoneb - NEB 1 amp RQID KIRA Administration Atorvastatin Calcium 20 mg 09/16/18 22:00 09/18/18 23:01 Lipitor - PO 20 mg HS KIRA Administration Fluconazole 100 mg 09/18/18 13:30 09/19/18 09:49 Diflucan - PO 100 mg DAILY KIRA Administration Heparin Sodium (Porcine) 5,000 unit 09/15/18 22:30 09/19/18 15:28 Heparin - SQ Not Given TID KIRA Ceftriaxone Sodium 2 gm/ 50 mls @ 100 mls/hr 09/18/18 13:30 09/19/18 09:49 Dextrose IVPB 100 mls/hr DAILY KIRA Administration Protocol Insulin Aspart 1 vial 09/16/18 07:00 09/19/18 12:09 Novolog Vial Sliding Scale - SQ 6 units ACHS KIRA Administration Protocol Lisinopril 10 mg 09/16/18 10:00 09/19/18 09:49 Prinivil PO 10 mg DAILY KIRA Administration Methadone HCl 120 mg 09/16/18 09:00 09/19/18 07:06 Dolophine - PO 120 mg DAILY@0600 KIRA Administration Methylprednisolone Sodium Succinate 40 mg 09/19/18 18:00 Solu-Medrol - IVPUSH Q8H-IV KIRA Multivitamins/Minerals/Vitamin C 1 tab 09/16/18 10:00 09/19/18 09:49 Tab-A-Vit - PO 1 tab DAILY KIRA Administration Quetiapine Fumarate 50 mg 09/16/18 22:00 09/18/18 23:01 Seroquel - PO 50 mg HS KIRA Administration Microbiology 09/15/18 12:30 Blood - Peripheral Venous Blood Culture - Preliminary NO GROWTH OBTAINED AFTER 96 HOURS, INCUBATION TO CONTINUE FOR 1 DAYS. 09/16/18 12:10 Blood - Peripheral Venous Blood Culture - Preliminary NO GROWTH OBTAINED AFTER 72 HOURS, INCUBATION TO CONTINUE FOR 2 DAYS. 09/16/18 12:05 Blood - Peripheral Venous Blood Culture - Preliminary NO GROWTH OBTAINED AFTER 72 HOURS, INCUBATION TO CONTINUE FOR 2 DAYS. 09/15/18 12:30 Blood - Peripheral Venous Blood Culture - Final Streptococcus Pneumoniae 09/15/18 10:32 Sputum - Expectorated Gram Stain - Final 09/15/18 10:32 Sputum - Expectorated Sputum Culture - Final Klebsiella Pneumoniae Yeast Like Organism 09/15/18 23:07 Urine - Urine Clean Catch Urine Culture - Final NO GROWTH OBTAINED 09/16/18 13:06 Throat Throat Culture - Final Yeast Like Organism 09/15/18 23:07 Urine For Antigen Detection Legionella Antigen - Final 09/15/18 23:07 Urine For Antigen Detection Streptococcus pneumoniae Antigen (M - Final 09/15/[address]: Extensive, diffuse pulmonary consolidation that has significantly worsened since 08/22/18. Extensive mediastinal lymphadenopathy unchanged. ASSESSMENT/PLAN: Patient is a 63 year old man with PMHx of HTN, HLD, DMII, COPD, methadone maintenance therapy, hx of multiple malignancies(lung/throat/kidney), s/p TAVR admitted for acute hypoxic respiratory distress likely due to pneumonia and acute exacerbation of COPD. # Acute hypoxic respiratory distress likely secondary to CAP with bactermia- resolving R/o Tb> CT chest shows diffuse pul consolidation Throat cx yeast like org: continue IV Diflucan Day 2 09/15/18 Blood cx positive, repeat Blood cx negative, sputum cx Klebsiella, continue Ceftriaxone 2gm Day 2 Duonebs QID. Pending quant gold. # COPD not on home o2 Hypoxic on admission, requiring NC. Pre and post ex sat done today: At rest, sat 87, at exercise 90 % @ 4L NC, qualifies for home oxygen Continue nebs PRN IV Solumedrol 40 Q8H, will start tapering in AM # Chronic Diastolic HF BNP 4933. ECHO reviewed from 07/05: mildly dilated LV, mildly reduced LV function, severe Cardio consult appreciated. # HTN- controlled Continue Lisinopril 10mg po daily # Hyperlipidemia Continue Lipitor 20mg # DM ISS, Finger stick glucose monitoring, Watch for hypoglycemic episodes # s/p TAVR f/up with [employer] as outpatient. # Hx of substance abuse Continue Methadone 120mg # Lung Ca s/p radiation, on chemo last chemo was in 09/04. States he doesn't have a port, it is through IV, gets weekly F/up with oncologist at [facility] [place] Hx of Laryngeal CA and RCC # Normocytic anemia H/H Stable # FEN Not on IV Fluids Electrolytes: Hyperphosphatemia, repeat in AM. Diabetic/sodium controlled # Prophylaxis For DVT: On heparin sq For GI: Not indicated # Code Status: Discussed regarding code status, he is a full code. # Dispo: Admitted in Med-Surg. Duration of stay unknown. Illness, Investigation and Plan of care explained to the patient. He verbalized understanding. Case discussed with Dr. Nassar. Visit type - Emergency Visit Emergency Visit: Yes ED Registration Date: 09/15/18 Care time: The patient presented to the Emergency Department on the above date and was hospitalized for further evaluation of their emergent condition. - New Patient This patient is new to me today: Yes Date on this admission: 09/19/18 - Critical Care Critical Care patient: No - Discharge Referral Referred to [facility] No
[2018-09-19] MEDS: ATORVASTATIN CA 20 MG TABLET (FP) PO SCH (22:19)
[2018-09-19] MEDS: QUEtiapine FUMARATE 50 MG TABLET PO SCH (22:19)
[2018-09-20] MEDS: methylPREDNISolone NA SUCC 40 MG/1 ML VIAL IVPUSH SCH ×3 (02:25→17:26)
[2018-09-20] MEDS: METHADONE HCL 40 MG DISPERSABLE TABLET PO SCH (05:42)
[2018-09-20] MEDS: HEPARIN NA (PORCINE) 5,000 UNITS/ML 1ML VIAL SQ SCH ×3 (05:42→21:38)
[2018-09-20] MEDS: INSULIN SLIDING SCALE (NOVOLOG) 1 VIAL SQ SCH ×5 (05:48→22:10)
[2018-09-20 06:43] LABS: HEMATOCRIT 27.7 % (35.4-49); HEMOGLOBIN 8.9 GM/dL (11.7-16.9); MCHC 32.1 g/dl (32.0-35.9); MEAN CELL VOLUME 90.4 fl (80-96); MEAN PLT VOLUME 8.1 fl (7.5-11.1); PLATELET COUNT 168 K/MM3 (134-434); RBC 3.06 M/mm3 (4.00-5.60); RDW 20.1 % (11.9-15.9); WHITE BLOOD COUNT 13.5 K/mm3 (4.0-10.0)
[2018-09-20 07:10] LABS: ALBUMIN 2.2 g/dl (3.4-5.0); ALK PHOS 97 U/L (45-117); ANION GAP 8 MMOL/L (8-16); BILIRUBIN,TOTAL 0.5 mg/dL (0.2-1); BLOOD UREA NITROGEN 37 mg/dL (7-18); CALCIUM 8.1 mg/dL (8.5-10.1); CHLORIDE 98 mmol/L (98-107); CO2 30 mmol/L (21-32); GLUCOSE,RANDOM 165 mg/dL (74-106); MAGNESIUM 2.1 mg/dL (1.8-2.4); PHOSPHOROUS 4.2 mg/dL (2.5-4.9); POTASSIUM 4.8 mmol/L (3.5-5.1); SGOT/AST 20 U/L (15-37); SGPT/ALT 28 U/L (13-61); SODIUM 135 mmol/L (136-145); TOT PROT 5.7 g/dl (6.4-8.2)
[2018-09-20] MEDS: ALBUTEROL SO4 2.5/IPRATROPIUM 0.5 INH SOL 3 ML VIAL.NEB. NEB SCH ×4 (07:30→20:48)
[2018-09-20] MEDS ORDERED: DEXTROSE 5%-WATER - 50 ML IVPB ONE (09:59)
[2018-09-20] MEDS ORDERED: PT OWN MED DRAWER 7, Y5N ONE (09:59)
[2018-09-20] MEDS: SIMETHICONE 80 MG TAB.CHEW (FP) PO PRN (10:00)
[2018-09-20] MEDS: CEFTRIAXONE 2 GM in DEXTROSE 5%-WATER - 50 ML IVPB SCH (10:06)
[2018-09-20] MEDS: LISINOPRIL 10 MG TABLET (FP) PO SCH (10:30)
[2018-09-20] MEDS: FLUCONAZOLE 100 MG TABLET (UD) PO SCH (10:30)
[2018-09-20] MEDS: MULTIVITAMINS (DAILY MVI) TABLET (FP) PO SCH (10:30)
--- NOTE | 2018-09-20 11:28 | PN ---
Progress Note (short form) - Note Progress Note: PULMONARY Feeling better today. Now tolerating nasal cannula. No further fevers. Vital Signs Period Temp Pulse Resp BP Sys/Nicholas Pulse Ox Last 24 Hr 98 F-98.1 F 73-91 18-22 142-153/66-81 90-94 Gen: NAD at rest Heart: RRR Lung: scattered basilar rhonchi Abd: soft, nontender Ext: + edema CBC, BMP 09/20/18 06:15 09/20/18 06:15 Active Medications Albuterol Sulfate (Ventolin Hfa Inhaler -) 2 puff IH Q4H PRN PRN Reason: SHORT OF BREATH/WHEEZING Albuterol/Ipratropium (Duoneb -) 1 amp NEB RQID [facility] Last Admin: 09/20/18 11:23 Dose: 1 amp Atorvastatin Calcium (Lipitor -) 20 mg PO HS [facility] Last Admin: 09/19/18 22:19 Dose: 20 mg Fluconazole (Diflucan -) 100 mg PO DAILY [facility] Last Admin: 09/20/18 10:30 Dose: 100 mg Heparin Sodium (Porcine) (Heparin -) 5,000 unit SQ TID [facility] Last Admin: 09/20/18 05:42 Dose: 5,000 unit Ceftriaxone Sodium 2 gm/ (Dextrose) 50 mls @ 100 mls/hr IVPB DAILY [facility]; Protocol Last Admin: 09/20/18 10:06 Dose: 100 mls/hr Insulin Aspart (Novolog Vial Sliding Scale -) 1 vial SQ ACHS [facility]; Protocol Last Admin: 09/20/18 06:00 Dose: Not Given Lisinopril (Prinivil) 10 mg PO DAILY [facility] Last Admin: 09/20/18 10:30 Dose: 10 mg Methadone HCl (Dolophine -) 120 mg PO DAILY@0600 [facility] Last Admin: 09/20/18 05:42 Dose: 120 mg Methylprednisolone Sodium Succinate (Solu-Medrol -) 40 mg IVPUSH Q8H-IV [facility] Last Admin: 09/20/18 02:25 Dose: 40 mg Multivitamins/Minerals/Vitamin C (Tab-A-Vit -) 1 tab PO DAILY [facility] Last Admin: 09/20/18 10:30 Dose: 1 tab Quetiapine Fumarate (Seroquel -) 50 mg PO HS [facility] Last Admin: 09/19/18 22:19 Dose: 50 mg Simethicone (Mylicon -) 80 mg PO QID PRN PRN Reason: DYSPEPSIA Last Admin: 09/20/18 10:00 Dose: 80 mg A/P Acute Hypoxic Respiratory Failure Pneumonia Pneumococcal Bacteremia Sepsis Stage 3 Lung Ca on chemo Acute COPD Exacerbation LV Systolic Dysfunction Aortic Stenosis s/p TAVR HTN DM - continue antibiotics - medrol taper - inhaled bronchodilators - taper fio2 to keep Spo2 >90% - rehab/PT - DVT prophylaxis
[2018-09-20] MEDS ORDERED: INSULIN (NOVOLOG) ASPART 100 UNITS/ML 10ML VIAL ONE ×3 (12:01→21:57)
--- NOTE | 2018-09-20 15:55 | PN ---
Progress Note (short form) - Note Progress Note: starting to feel better on nasal canulla, c/o left posterior chest discomfort Vital Signs Period Temp Pulse Resp BP Sys/Nicholas Pulse Ox Last 24 Hr 97.8 F-98.1 F 73-91 18-22 122-153/66-81 94 cor-rrr lungs decreased bs at the bases abd soft,nt ext no edema CBC, BMP 09/20/18 06:15 09/20/18 06:15 Microbiology 09/15/18 12:30 Blood - Peripheral Venous Blood Culture - Final NO GROWTH AFTER 5 DAYS INCUBATION 09/16/18 12:05 Blood - Peripheral Venous Blood Culture - Preliminary NO GROWTH OBTAINED AFTER 96 HOURS, INCUBATION TO CONTINUE FOR 1 DAYS. 09/16/18 12:10 Blood - Peripheral Venous Blood Culture - Preliminary NO GROWTH OBTAINED AFTER 96 HOURS, INCUBATION TO CONTINUE FOR 1 DAYS. 09/19/18 11:25 Blood - Peripheral Venous Blood Culture - Preliminary NO GROWTH OBTAINED AFTER 24 HOURS, INCUBATION TO CONTINUE FOR 4 DAYS. 09/18/18 20:00 Blood - Peripheral Venous Blood Culture - Preliminary NO GROWTH OBTAINED AFTER 24 HOURS, INCUBATION TO CONTINUE FOR 4 DAYS. 09/15/18 12:30 Blood - Peripheral Venous Blood Culture - Final Streptococcus Pneumoniae 09/15/18 10:32 Sputum - Expectorated Gram Stain - Final 09/15/18 10:32 Sputum - Expectorated Sputum Culture - Final Klebsiella Pneumoniae Yeast Like Organism 09/15/18 23:07 Urine - Urine Clean Catch Urine Culture - Final NO GROWTH OBTAINED 09/16/18 13:06 Throat Throat Culture - Final Yeast Like Organism 09/15/18 23:07 Urine For Antigen Detection Legionella Antigen - Final 09/15/18 23:07 Urine For Antigen Detection Streptococcus pneumoniae Antigen (M - Final Current Medications Albuterol Sulfate (Ventolin Hfa Inhaler -) 2 puff IH Q4H PRN PRN Reason: SHORT OF BREATH/WHEEZING Albuterol/Ipratropium (Duoneb -) 1 amp NEB RQID [facility] Last Admin: 09/20/18 11:23 Dose: 1 amp Atorvastatin Calcium (Lipitor -) 20 mg PO HS [facility] Last Admin: 09/19/18 22:19 Dose: 20 mg Fluconazole (Diflucan -) 100 mg PO DAILY [facility] Last Admin: 09/20/18 10:30 Dose: 100 mg Heparin Sodium (Porcine) (Heparin -) 5,000 unit SQ TID [facility] Last Admin: 09/20/18 14:50 Dose: 5,000 unit Ceftriaxone Sodium 2 gm/ (Dextrose) 50 mls @ 100 mls/hr IVPB DAILY [facility]; Protocol Last Admin: 09/20/18 10:06 Dose: 100 mls/hr Insulin Aspart (Novolog Vial Sliding Scale -) 1 vial SQ ACHS [facility]; Protocol Last Admin: 09/20/18 12:03 Dose: 8 units Lisinopril (Prinivil) 10 mg PO DAILY [facility] Last Admin: 09/20/18 10:30 Dose: 10 mg Methadone HCl (Dolophine -) 120 mg PO DAILY@0600 [facility] Last Admin: 09/20/18 05:42 Dose: 120 mg Methylprednisolone Sodium Succinate (Solu-Medrol -) 40 mg IVPUSH Q8H-IV [facility] Last Admin: 09/20/18 11:00 Dose: 40 mg Multivitamins/Minerals/Vitamin C (Tab-A-Vit -) 1 tab PO DAILY [facility] Last Admin: 09/20/18 10:30 Dose: 1 tab Quetiapine Fumarate (Seroquel -) 50 mg PO HS [facility] Last Admin: 09/19/18 22:19 Dose: 50 mg Simethicone (Mylicon -) 80 mg PO QID PRN PRN Reason: DYSPEPSIA Last Admin: 09/20/18 10:00 Dose: 80 mg a/p hypoxemic resp failure extensive pneumonia pneumococcal bacteremia/pneumonia s/p tavr lung cancer-completed radiation, still on chemo clinically improved day #5 antiibotics now on ceftriaxone repeat cxray given pleuritic pain- r/o effusion history of copd s/p tavr- pneumococcal bacteremia- will d/c cardiology history of RCC Problem List - Problems (1) Acute hypoxemic respiratory failure Code(s): J96.01 - ACUTE RESPIRATORY FAILURE WITH HYPOXIA (2) PNA (pneumonia) Code(s): J18.9 - PNEUMONIA, UNSPECIFIED ORGANISM Qualifiers: Pneumonia type: due to unspecified organism Laterality: right Lung location: lower lobe of lung Qualified Code(s): J18.1 - Lobar pneumonia, unspecified organism (3) Bacteremia Code(s): R78.81 - BACTEREMIA (4) Lung cancer Code(s): C34.90 - MALIGNANT NEOPLASM OF UNSP PART OF UNSP BRONCHUS OR LUNG (5) S/P TAVR (transcatheter aortic valve replacement) Code(s): Z95.2 - PRESENCE OF PROSTHETIC HEART VALVE
--- NOTE | 2018-09-20 16:19 | PN ---
Physical Exam: SUBJECTIVE: Patient seen and examined at bed side this morning. No complaints. Denies chest pain, palpitation, abdominal pain, nausea or vomiting. OBJECTIVE: Vital Signs Period Temp Pulse Resp BP Sys/Nicholas Pulse Ox Last 24 Hr 97.8 F-98.1 F 73-91 18-22 122-153/66-81 94 GENERAL: Middle aged male, sitting comfortably in bed, is awake, alert, and fully oriented, in no acute distress. HEAD: Normal with no signs of trauma. EYES: EOM intact, no pallor or icterus. ENT: Ears normal, moist mucous membranes. NECK: Supple. LUNGS: B/L coarse breath sounds bilaterally, occasional wheeze. HEART: Regular rate and rhythm, S1, S2 with systolic murmur. ABDOMEN: Soft, nontender, no organomegaly. EXTREMITIES: 2+ pulses, warm, well-perfused, no edema. NEUROLOGICAL: No facial droop. Normal speech, gait not observed. PSYCH: Normal mood, normal affect. SKIN: Warm, dry, normal turgor, no rashes or lesions noted Laboratory Results - last 24 hr 09/19/18 09/19/18 09/20/18 17:48 22:17 05:48 WBC RBC Hgb Hct MCV MCH MCHC RDW Plt Count MPV Sodium Potassium Chloride Carbon Dioxide Anion Gap BUN Creatinine Creat Clearance w eGFR POC Glucometer 314 165 183 Random Glucose Calcium Phosphorus Magnesium Total Bilirubin AST ALT Alkaline Phosphatase Total Protein Albumin 09/20/18 09/20/18 09/20/18 06:15 06:15 11:44 WBC 13.5 H RBC 3.06 L Hgb 8.9 L Hct 27.7 L MCV 90.4 MCH 29.0 MCHC 32.1 RDW 20.1 H Plt Count 168 MPV 8.1 D Sodium 135 L Potassium 4.8 Chloride 98 Carbon Dioxide 30 Anion Gap 8 BUN 37 H Creatinine 1.0 Creat Clearance w eGFR > 60 POC Glucometer 348 Random Glucose 165 H Calcium 8.1 L Phosphorus 4.2 Magnesium 2.1 Total Bilirubin 0.5 AST 20 ALT 28 Alkaline Phosphatase 97 Total Protein 5.7 L Albumin 2.2 L Active Medications Generic Name Dose Route Start Last Admin Trade Name Freq PRN Reason Stop Dose Admin Albuterol Sulfate 2 puff 09/15/18 22:15 Ventolin Hfa Inhaler - IH Q4H PRN SHORT OF BREATH/WHEEZING Albuterol/Ipratropium 1 amp 09/16/18 16:00 09/20/18 15:55 Duoneb - NEB 1 amp RQID KIRA Administration Atorvastatin Calcium 20 mg 09/16/18 22:00 09/19/18 22:19 Lipitor - PO 20 mg HS KIRA Administration Fluconazole 100 mg 09/18/18 13:30 09/20/18 10:30 Diflucan - PO 100 mg DAILY KIRA Administration Heparin Sodium (Porcine) 5,000 unit 09/15/18 22:30 09/20/18 14:50 Heparin - SQ 5,000 unit TID KIRA Administration Ceftriaxone Sodium 2 gm/ 50 mls @ 100 mls/hr 09/18/18 13:30 09/20/18 10:06 Dextrose IVPB 100 mls/hr DAILY KIRA Administration Protocol Insulin Aspart 1 vial 09/16/18 07:00 09/20/18 12:03 Novolog Vial Sliding Scale - SQ 8 units ACHS KIRA Administration Protocol Lisinopril 10 mg 09/16/18 10:00 09/20/18 10:30 Prinivil PO 10 mg DAILY KIRA Administration Methadone HCl 120 mg 09/16/18 09:00 09/20/18 05:42 Dolophine - PO 120 mg DAILY@0600 KIRA Administration Methylprednisolone Sodium Succinate 40 mg 09/19/18 18:00 09/20/18 11:00 Solu-Medrol - IVPUSH 40 mg Q8H-IV K[facility]A Administration Multivitamins/Minerals/Vitamin C 1 tab 09/16/18 10:00 09/20/18 10:30 Tab-A-Vit - PO 1 tab DAILY [facility]A Administration Quetiapine Fumarate 50 mg 09/16/18 22:00 09/19/18 22:19 Seroquel - PO 50 mg HS KIRA Administration Simethicone 80 mg 09/20/18 09:28 09/20/18 10:00 Mylicon - PO 80 mg QID PRN Administration DYSPEPSIA ASSESSMENT/PLAN: 09/15/[address]: Extensive, diffuse pulmonary consolidation that has significantly worsened since 08/22/18. Extensive mediastinal lymphadenopathy unchanged. ASSESSMENT/PLAN: Patient is a 63 year old man with PMHx of HTN, HLD, DMII, COPD, methadone maintenance therapy, hx of multiple malignancies(lung/throat/kidney), s/p TAVR admitted for acute hypoxic respiratory distress likely due to pneumonia and acute exacerbation of COPD. # Acute hypoxic respiratory distress likely secondary to CAP with bactermia- resolving Continue IV Ceftriaxone and IV Diflucan Throat cx yeast like org CT chest shows diffuse pul consolidation 09/15/18 Blood cx positive, repeat Blood cx negative, sputum cx Klebsiella Duonebs QID. R/o TB. Pending quant gold. # COPD not on home o2 (qualifies for home oxygen) Hypoxic on admission, requiring NC. Pre and post ex sat done today: At rest, sat 87, at exercise 90 % @ 4L NC, qualifies for home oxygen Continue nebs PRN IV Solumedrol 40 Q8H, will start tapering in AM # Chronic Diastolic HF BNP 4933. ECHO reviewed from 07/05: mildly dilated LV, mildly reduced LV function, severe Cardio consult appreciated. # HTN- controlled Continue Lisinopril 10mg po daily # Hyperlipidemia Continue Lipitor 20mg # DM ISS, Finger stick glucose monitoring, Watch for hypoglycemic episodes # s/p TAVR f/up with charge auditor as outpatient. # Hx of substance abuse Continue Methadone 120mg # Lung Ca s/p radiation, on chemo last chemo was in 09/04. States he doesn't have a port, it is through IV, gets weekly F/up with oncologist at [facility] Hx of Laryngeal CA and RCC # Normocytic anemia H/H Stable # FEN Not on IV Fluids Electrolytes: Hyperphosphatemia, repeat in AM. Diabetic/sodium controlled # Prophylaxis For DVT: On heparin sq For GI: Not indicated # Code Status: Discussed regarding code status, he is a full code. # Dispo: Admitted in Med-Surg. Duration of stay unknown. Illness, Investigation and Plan of care explained to the patient. He verbalized understanding. Case discussed with Dr. Nassar. Visit type - Emergency Visit Emergency Visit: Yes ED Registration Date: 09/15/18 Care time: The patient presented to the Emergency Department on the above date and was hospitalized for further evaluation of their emergent condition. - New Patient This patient is new to me today: No - Critical Care Critical Care patient: No - Discharge Referral Referred to [facility] No
--- NOTE | 2018-09-20 16:41 | PN ---
Teaching Attending Note Name of Resident: Sandee Bryan ATTENDING PHYSICIAN STATEMENT I saw and evaluated the patient. I reviewed the resident's note and discussed the case with the resident. I agree with the resident's findings and plan as documented with exceptions below. SUBJECTIVE: Patient seen and examined. breathing improved, still with cough. Overall better. Feeling of secretions stuck in throat. No dysphagia or odynophagia. OBJECTIVE: Vital Signs Period Temp Pulse Resp BP Sys/Nicholas Pulse Ox Last 24 Hr 97.8 F-98.1 F 73-91 18-22 122-153/66-81 94 Intake & Output 09/17/18 09/18/18 09/19/18 09/20/18 23:59 23:59 23:59 23:59 Intake Total 1300 1050 200 Balance 1300 1050 200 Weight 179 lb General: sitting in bed in no acute distress Chest: RLL/RML rales, LLL rales, no wheezing, good air entry Abdomen;Soft, NT Extremities: trace pedal edema HEENT: no oral thrush noted Active Medications Albuterol Sulfate (Ventolin Hfa Inhaler -) 2 puff IH Q4H PRN PRN Reason: SHORT OF BREATH/WHEEZING Albuterol/Ipratropium (Duoneb -) 1 amp NEB RQID [facility] Last Admin: 09/20/18 15:55 Dose: 1 amp Atorvastatin Calcium (Lipitor -) 20 mg PO HS [facility] Last Admin: 09/19/18 22:19 Dose: 20 mg Fluconazole (Diflucan -) 100 mg PO DAILY [facility] Last Admin: 09/20/18 10:30 Dose: 100 mg Heparin Sodium (Porcine) (Heparin -) 5,000 unit SQ TID [facility] Last Admin: 09/20/18 14:50 Dose: 5,000 unit Ceftriaxone Sodium 2 gm/ (Dextrose) 50 mls @ 100 mls/hr IVPB DAILY [facility]; Protocol Last Admin: 09/20/18 10:06 Dose: 100 mls/hr Insulin Aspart (Novolog Vial Sliding Scale -) 1 vial SQ ACHS [facility]; Protocol Last Admin: 09/20/18 12:03 Dose: 8 units Lisinopril (Prinivil) 10 mg PO DAILY [facility] Last Admin: 09/20/18 10:30 Dose: 10 mg Methadone HCl (Dolophine -) 120 mg PO DAILY@0600 [facility] Last Admin: 09/20/18 05:42 Dose: 120 mg Methylprednisolone Sodium Succinate (Solu-Medrol -) 40 mg IVPUSH Q8H-IV [facility] Last Admin: 09/20/18 11:00 Dose: 40 mg Multivitamins/Minerals/Vitamin C (Tab-A-Vit -) 1 tab PO DAILY [facility] Last Admin: 09/20/18 10:30 Dose: 1 tab Quetiapine Fumarate (Seroquel -) 50 mg PO HS [facility] Last Admin: 09/19/18 22:19 Dose: 50 mg Simethicone (Mylicon -) 80 mg PO QID PRN PRN Reason: DYSPEPSIA Last Admin: 09/20/18 10:00 Dose: 80 mg Laboratory Results - last 24 hr 09/17/18 09/19/18 09/19/18 06:48 17:48 22:17 WBC RBC Hgb Hct MCV MCH MCHC RDW Plt Count MPV Sodium Potassium Chloride Carbon Dioxide Anion Gap BUN Creatinine Creat Clearance w eGFR POC Glucometer 314 165 Random Glucose Calcium Phosphorus Magnesium Total Bilirubin AST ALT Alkaline Phosphatase Total Protein Albumin TB Test (QFT) Nil 0.03 TB Test (QFT) Mitogen 0.05 TB Test (QFT) Antigen 0.03 TB Positive Criteria 09/20/18 09/20/18 09/20/18 05:48 06:15 06:15 WBC 13.5 H RBC 3.06 L Hgb 8.9 L Hct 27.7 L MCV 90.4 MCH 29.0 MCHC 32.1 RDW 20.1 H Plt Count 168 MPV 8.1 D Sodium 135 L Potassium 4.8 Chloride 98 Carbon Dioxide 30 Anion Gap 8 BUN 37 H Creatinine 1.0 Creat Clearance w eGFR > 60 POC Glucometer 183 Random Glucose 165 H Calcium 8.1 L Phosphorus 4.2 Magnesium 2.1 Total Bilirubin 0.5 AST 20 ALT 28 Alkaline Phosphatase 97 Total Protein 5.7 L Albumin 2.2 L TB Test (QFT) Nil TB Test (QFT) Mitogen TB Test (QFT) Antigen TB Positive Criteria 09/20/18 11:44 WBC RBC Hgb Hct MCV MCH MCHC RDW Plt Count MPV Sodium Potassium Chloride Carbon Dioxide Anion Gap BUN Creatinine Creat Clearance w eGFR POC Glucometer 348 Random Glucose Calcium Phosphorus Magnesium Total Bilirubin AST ALT Alkaline Phosphatase Total Protein Albumin TB Test (QFT) Nil TB Test (QFT) Mitogen TB Test (QFT) Antigen TB Positive Criteria Microbiology 09/15/18 12:30 Blood - Peripheral Venous Blood Culture - Final NO GROWTH AFTER 5 DAYS INCUBATION 09/16/18 12:05 Blood - Peripheral Venous Blood Culture - Preliminary NO GROWTH OBTAINED AFTER 96 HOURS, INCUBATION TO CONTINUE FOR 1 DAYS. 09/16/18 12:10 Blood - Peripheral Venous Blood Culture - Preliminary NO GROWTH OBTAINED AFTER 96 HOURS, INCUBATION TO CONTINUE FOR 1 DAYS. 09/19/18 11:25 Blood - Peripheral Venous Blood Culture - Preliminary NO GROWTH OBTAINED AFTER 24 HOURS, INCUBATION TO CONTINUE FOR 4 DAYS. 09/18/18 20:00 Blood - Peripheral Venous Blood Culture - Preliminary NO GROWTH OBTAINED AFTER 24 HOURS, INCUBATION TO CONTINUE FOR 4 DAYS. 09/15/18 12:30 Blood - Peripheral Venous Blood Culture - Final Streptococcus Pneumoniae 09/15/18 10:32 Sputum - Expectorated Gram Stain - Final 09/15/18 10:32 Sputum - Expectorated Sputum Culture - Final Klebsiella Pneumoniae Yeast Like Organism 09/15/18 23:07 Urine - Urine Clean Catch Urine Culture - Final NO GROWTH OBTAINED 09/16/18 13:06 Throat Throat Culture - Final Yeast Like Organism 09/15/18 23:07 Urine For Antigen Detection Legionella Antigen - Final 09/15/18 23:07 Urine For Antigen Detection Streptococcus pneumoniae Antigen (M - Final ASSESSMENT AND PLAN: 63 year-old male with a PMH significant for HTN, systolic HR, s/p TAVR (2016), COPD, Type II NIDDM, lung, laryngeal, and renal cell carcinoma, lung ca s/p radiation, presently on chemotherapy , methadone dependency admitted with shortness of breath. -Acute hypoxemic respiratory failure -Multilobar PNA -Pneumococcal bacteremia -Sputum cx with Klebsiella -Lung ca s/p radiation, on chemotherapy -Oral candidiasis -severe s/p TAVR -Trace Mitral regurgitation -h/o IVDU -Methadone dependence -Chronic diastolic heart failure -Anemia -HTN -HLD -Laryngeal Ca -Renal Cell Carcinoma -NIDDM Plan: ID input noted. Ceftriaxone day 3, Diflucan day 3. 2D Echo results reviewed. Neg blood cx/clinical improvement, PUSHPA unlikely benefit currently, monitor clinically and follow up with ID/cardiology. Repeat blood cx from 09/17 and 09/18 neg so far, follow up. Hold off standing diuresis. Will need lasix if transfused. Follow up repeat CXR. Monitor h/h. Lisinopril/Lipitor ISS, diabetic diet. Outpatient oncology follow up for additional 2 rounds of chemotherapy when improved. dvTPPX heparin Dispo pending clinical improvement and disposition arrangements. PT eval Anticipate home oxygen needs. Plan discussed with patient and nursing, all questions answered.
[2018-09-20] MEDS: ATORVASTATIN CA 20 MG TABLET (FP) PO SCH (21:39)
[2018-09-20] MEDS: QUEtiapine FUMARATE 50 MG TABLET PO SCH (21:39)
[2018-09-21] MEDS: methylPREDNISolone NA SUCC 40 MG/1 ML VIAL IVPUSH SCH ×3 (01:20→21:37)
[2018-09-21] MEDS: METHADONE HCL 40 MG DISPERSABLE TABLET PO SCH (05:05)
[2018-09-21] MEDS: HEPARIN NA (PORCINE) 5,000 UNITS/ML 1ML VIAL SQ SCH ×3 (05:06→21:37)
[2018-09-21] MEDS: INSULIN SLIDING SCALE (NOVOLOG) 1 VIAL SQ SCH ×4 (07:01→21:37)
[2018-09-21 07:23] LABS: HEMATOCRIT 26.5 % (35.4-49); HEMOGLOBIN 8.4 GM/dL (11.7-16.9); MCH 29.2 pg (25.7-33.7); MCHC 31.9 g/dl (32.0-35.9); MEAN CELL VOLUME 91.6 fl (80-96); MEAN PLT VOLUME 7.8 fl (7.5-11.1); PLATELET COUNT 151 K/MM3 (134-434); RBC 2.89 M/mm3 (4.00-5.60); RDW 20.4 % (11.9-15.9); WHITE BLOOD COUNT 9.5 K/mm3 (4.0-10.0)
[2018-09-21 07:46] LABS: ANION GAP 6 MMOL/L (8-16); BLOOD UREA NITROGEN 32 mg/dL (7-18); CHLORIDE 99 mmol/L (98-107); CO2 30 mmol/L (21-32); CREATININE 0.9 mg/dL (0.55-1.3); GLUCOSE,RANDOM 170 mg/dL (74-106); POTASSIUM 5.2 mmol/L (3.5-5.1); SODIUM 135 mmol/L (136-145)
[2018-09-21] MEDS: ALBUTEROL SO4 2.5/IPRATROPIUM 0.5 INH SOL 3 ML VIAL.NEB. NEB SCH ×2 (08:10→12:56)
[2018-09-21] MEDS ORDERED: DEXTROSE 5%-WATER - 50 ML IVPB ONE (09:21)
[2018-09-21] MEDS ORDERED: PT OWN MED DRAWER 7, Y5N ONE (09:23)
[2018-09-21] MEDS: LISINOPRIL 10 MG TABLET (FP) PO SCH (09:27)
[2018-09-21] MEDS: MULTIVITAMINS (DAILY MVI) TABLET (FP) PO SCH (09:27)
[2018-09-21] MEDS: FLUCONAZOLE 100 MG TABLET (UD) PO SCH (09:27)
[2018-09-21] MEDS: CEFTRIAXONE 2 GM in DEXTROSE 5%-WATER - 50 ML IVPB SCH (09:34)
[2018-09-21] MEDS ORDERED: SODIUM POLYSTYRENE SULFONATE 15 GM/60 ML BOTTLE PO ONE (10:45)
--- NOTE | 2018-09-21 11:15 | PN ---
Teaching Attending Note Name of Resident: Sandee Bryan ATTENDING PHYSICIAN STATEMENT I saw and evaluated the patient. I reviewed the resident's note and discussed the case with the resident. I agree with the resident's findings and plan as documented with exceptions below. SUBJECTIVE: Patient seen and examined. Breathing/coughing improved. Swallowing better OBJECTIVE: Vital Signs Period Temp Pulse Resp BP Sys/Nicholas Pulse Ox Last 24 Hr 97.8 F-98.0 F 59-89 18-18 122-149/70-80 94-95 Intake & Output 09/18/18 09/19/18 09/20/18 09/21/18 23:59 23:59 23:59 23:59 Intake Total 1050 200 250 250 Balance 1050 200 250 250 General: sitting in bed, no tachypnea or use of accessory muscles of respiration Chest: bibasilar rales R>L, improved air entry, no wheezing Abdomen:Soft, NT, ND Extremities: no edema HEENT: no oral thrush noted Home Medications Medication Instructions Recorded Albuterol 2.5/Ipratropium 0.5 1 neb IH QID 09/15/18 [Duoneb -] Aspirin [ASA -] 81 mg PO DAILY 09/15/18 Glipizide 5 mg PO DAILY 09/15/18 Lisinopril 10 mg PO DAILY 09/15/18 Metformin HCl [Metformin HCl ER] 1,000 mg PO BID 09/15/18 Methadone [Dolophine -] 120 mg PO DAILY 09/15/18 Multivitamins [Tab-A-Vit -] 1 tab PO DAILY 09/15/18 Simvastatin 40 mg PO HS 09/15/18 Active Medications Albuterol Sulfate (Ventolin Hfa Inhaler -) 2 puff IH Q4H PRN PRN Reason: SHORT OF BREATH/WHEEZING Albuterol/Ipratropium (Duoneb -) 1 amp NEB RQID [facility] Last Admin: 09/20/18 20:48 Dose: 1 amp Atorvastatin Calcium (Lipitor -) 20 mg PO HS [facility] Last Admin: 09/20/18 21:39 Dose: 20 mg Fluconazole (Diflucan -) 100 mg PO DAILY [facility] Last Admin: 09/21/18 09:27 Dose: 100 mg Heparin Sodium (Porcine) (Heparin -) 5,000 unit SQ TID [facility] Last Admin: 09/21/18 05:06 Dose: 5,000 unit Ceftriaxone Sodium 2 gm/ (Dextrose) 50 mls @ 100 mls/hr IVPB DAILY [facility]; Protocol Last Admin: 09/21/18 09:34 Dose: 100 mls/hr Insulin Aspart (Novolog Vial Sliding Scale -) 1 vial SQ ACHS [facility]; Protocol Last Admin: 09/21/18 07:01 Dose: 2 units Lisinopril (Prinivil) 10 mg PO DAILY [facility] Last Admin: 09/21/18 09:27 Dose: 10 mg Methadone HCl (Dolophine -) 120 mg PO DAILY@0600 [facility] Last Admin: 09/21/18 05:05 Dose: 120 mg Methylprednisolone Sodium Succinate (Solu-Medrol -) 40 mg IVPUSH Q8H-IV [facility] Last Admin: 09/21/18 09:27 Dose: 40 mg Multivitamins/Minerals/Vitamin C (Tab-A-Vit -) 1 tab PO DAILY [facility] Last Admin: 09/21/18 09:27 Dose: 1 tab Quetiapine Fumarate (Seroquel -) 50 mg PO HS [facility] Last Admin: 09/20/18 21:39 Dose: 50 mg Simethicone (Mylicon -) 80 mg PO QID PRN PRN Reason: DYSPEPSIA Last Admin: 09/20/18 10:00 Dose: 80 mg Laboratory Results - last 24 hr 09/17/18 09/20/18 09/20/18 06:48 11:44 17:25 WBC RBC Hgb Hct MCV MCH MCHC RDW Plt Count MPV Sodium Potassium Chloride Carbon Dioxide Anion Gap BUN Creatinine Creat Clearance w eGFR POC Glucometer 348 302 Random Glucose Calcium TB Test (QFT) Nil 0.03 TB Test (QFT) Mitogen 0.05 TB Test (QFT) Antigen 0.03 TB Positive Criteria 09/20/18 09/21/18 09/21/18 22:09 05:14 06:10 WBC 9.5 RBC 2.89 L Hgb 8.4 L Hct 26.5 L MCV 91.6 MCH 29.2 MCHC 31.9 L RDW 20.4 H Plt Count 151 MPV 7.8 Sodium Potassium Chloride Carbon Dioxide Anion Gap BUN Creatinine Creat Clearance w eGFR POC Glucometer 167 196 Random Glucose Calcium TB Test (QFT) Nil TB Test (QFT) Mitogen TB Test (QFT) Antigen TB Positive Criteria 09/21/18 06:10 WBC RBC Hgb Hct MCV MCH MCHC RDW Plt Count MPV Sodium 135 L Potassium 5.2 H Chloride 99 Carbon Dioxide 30 Anion Gap 6 L BUN 32 H Creatinine 0.9 Creat Clearance w eGFR > 60 POC Glucometer Random Glucose 170 H Calcium 8.0 L TB Test (QFT) Nil TB Test (QFT) Mitogen TB Test (QFT) Antigen TB Positive Criteria Microbiology 09/18/18 20:00 Blood - Peripheral Venous Blood Culture - Preliminary NO GROWTH OBTAINED AFTER 48 HOURS, INCUBATION TO CONTINUE FOR 3 DAYS. 09/15/18 12:30 Blood - Peripheral Venous Blood Culture - Final NO GROWTH AFTER 5 DAYS INCUBATION 09/16/18 12:05 Blood - Peripheral Venous Blood Culture - Preliminary NO GROWTH OBTAINED AFTER 96 HOURS, INCUBATION TO CONTINUE FOR 1 DAYS. 09/16/18 12:10 Blood - Peripheral Venous Blood Culture - Preliminary NO GROWTH OBTAINED AFTER 96 HOURS, INCUBATION TO CONTINUE FOR 1 DAYS. 09/19/18 11:25 Blood - Peripheral Venous Blood Culture - Preliminary NO GROWTH OBTAINED AFTER 24 HOURS, INCUBATION TO CONTINUE FOR 4 DAYS. 09/15/18 12:30 Blood - Peripheral Venous Blood Culture - Final Streptococcus Pneumoniae 09/15/18 10:32 Sputum - Expectorated Gram Stain - Final 09/15/18 10:32 Sputum - Expectorated Sputum Culture - Final Klebsiella Pneumoniae Yeast Like Organism 09/15/18 23:07 Urine - Urine Clean Catch Urine Culture - Final NO GROWTH OBTAINED 09/16/18 13:06 Throat Throat Culture - Final Yeast Like Organism 09/15/18 23:07 Urine For Antigen Detection Legionella Antigen - Final 09/15/18 23:07 Urine For Antigen Detection Streptococcus pneumoniae Antigen (M - Final ASSESSMENT AND PLAN: 63 year-old male with a PMH significant for HTN, systolic HR, s/p TAVR (2016), COPD, Type II NIDDM, lung, laryngeal, and renal cell carcinoma, lung ca s/p radiation, presently on chemotherapy , methadone dependency admitted with shortness of breath. -Acute hypoxemic respiratory failure -Multilobar PNA -Pneumococcal bacteremia -Sputum cx with Klebsiella -Lung ca s/p radiation, on chemotherapy -Oral candidiasis -severe s/p TAVR -Trace Mitral regurgitation -h/o IVDU -Methadone dependence -Chronic diastolic heart failure -Anemia -HTN -HLD -Laryngeal Ca -Renal Cell Carcinoma -NIDDM -Mild hyperkalemia Plan: ID input noted. Ceftriaxone day 4, Diflucan day 4. 2D Echo results reviewed. Neg blood cx/clinical improvement, PUSHPA unlikely benefit currently, monitor clinically and follow up with ID/cardiology. Repeat blood cx from 09/17 and 09/18 neg so far, follow up. Hold off standing diuresis. Will need lasix if transfused. Repeat CXr overall the same, some improvement. h/h stable kayexalate x 1, monitor K levels on lisinopril. Lisinopril/Lipitor ISS, diabetic diet. Outpatient oncology follow up for additional 2 rounds of chemotherapy when improved. dvTPPX heparin repeat home oxygen needs assessment in 24 hours. PT eval. Dispo planning in 48 hours on po abx pending ID input if continues to improve. Discussed with social work Plan discussed with patient and nursing, all questions answered.
--- NOTE | 2018-09-21 14:18 | PN ---
Progress Note (short form) - Note Progress Note: starting to feel better on nasal canula, continued chest discomfort Vital Signs Period Temp Pulse Resp BP Sys/Nicholas Pulse Ox Last 24 Hr 97.8 F-98.0 F 59-89 18-18 122-149/70-80 94-95 cor-rrr crackles left lung base abd soft,nt ext no edema CBC, BMP 09/21/18 06:10 09/21/18 06:10 Microbiology 09/16/18 12:05 Blood - Peripheral Venous Blood Culture - Final NO GROWTH AFTER 5 DAYS INCUBATION 09/16/18 12:10 Blood - Peripheral Venous Blood Culture - Final NO GROWTH AFTER 5 DAYS INCUBATION 09/19/18 11:25 Blood - Peripheral Venous Blood Culture - Preliminary NO GROWTH OBTAINED AFTER 48 HOURS, INCUBATION TO CONTINUE FOR 3 DAYS. 09/18/18 20:00 Blood - Peripheral Venous Blood Culture - Preliminary NO GROWTH OBTAINED AFTER 48 HOURS, INCUBATION TO CONTINUE FOR 3 DAYS. 09/15/18 12:30 Blood - Peripheral Venous Blood Culture - Final NO GROWTH AFTER 5 DAYS INCUBATION 09/15/18 12:30 Blood - Peripheral Venous Blood Culture - Final Streptococcus Pneumoniae 09/15/18 10:32 Sputum - Expectorated Gram Stain - Final 09/15/18 10:32 Sputum - Expectorated Sputum Culture - Final Klebsiella Pneumoniae Yeast Like Organism 09/15/18 23:07 Urine - Urine Clean Catch Urine Culture - Final NO GROWTH OBTAINED 09/16/18 13:06 Throat Throat Culture - Final Yeast Like Organism 09/15/18 23:07 Urine For Antigen Detection Legionella Antigen - Final 09/15/18 23:07 Urine For Antigen Detection Streptococcus pneumoniae Antigen (M - Final cxray improved a/p hypoxemic resp failure extensive pneumonia pneumococcal bacteremia/pneumonia s/p tavr lung cancer-completed radiation, still on chemo clinically improved day #6 antiibotics now on ceftriaxone plan total 14 days of iv antibiotics will need blood cultures repeated off antiibotics after antibiotics are completed history of copd s/p tavr- pneumococcal bacteremia- d/w cardiology trans thoracic echo unchanged from june multiple negative f/u cultures history of RCC Problem List - Problems (1) Acute hypoxemic respiratory failure Code(s): J96.01 - ACUTE RESPIRATORY FAILURE WITH HYPOXIA (2) PNA (pneumonia) Code(s): J18.9 - PNEUMONIA, UNSPECIFIED ORGANISM Qualifiers: Pneumonia type: due to unspecified organism Laterality: right Lung location: lower lobe of lung Qualified Code(s): J18.1 - Lobar pneumonia, unspecified organism (3) Bacteremia Code(s): R78.81 - BACTEREMIA (4) Lung cancer Code(s): C34.90 - MALIGNANT NEOPLASM OF UNSP PART OF UNSP BRONCHUS OR LUNG (5) S/P TAVR (transcatheter aortic valve replacement) Code(s): Z95.2 - PRESENCE OF PROSTHETIC HEART VALVE
--- NOTE | 2018-09-21 15:40 | PN ---
Progress Note, Physician History of Present Illness: PULMONARY ALERT,FEELING BETTER,DYSPNEA IMPROVING - Current Medication List Current Medications: Active Medications Albuterol Sulfate (Ventolin Hfa Inhaler -) 2 puff IH Q4H PRN PRN Reason: SHORT OF BREATH/WHEEZING Albuterol/Ipratropium (Duoneb -) 1 amp NEB RQID [facility] Last Admin: 09/21/18 12:56 Dose: 1 amp Atorvastatin Calcium (Lipitor -) 20 mg PO HS [facility] Last Admin: 09/20/18 21:39 Dose: 20 mg Fluconazole (Diflucan -) 100 mg PO DAILY [facility] Last Admin: 09/21/18 09:27 Dose: 100 mg Heparin Sodium (Porcine) (Heparin -) 5,000 unit SQ TID [facility] Last Admin: 09/21/18 13:37 Dose: 5,000 unit Ceftriaxone Sodium 2 gm/ (Dextrose) 50 mls @ 100 mls/hr IVPB DAILY [facility]; Protocol Last Admin: 09/21/18 09:34 Dose: 100 mls/hr Insulin Aspart (Novolog Vial Sliding Scale -) 1 vial SQ ACHS [facility]; Protocol Last Admin: 09/21/18 12:06 Dose: 6 units Lisinopril (Prinivil) 10 mg PO DAILY [facility] Last Admin: 09/21/18 09:27 Dose: 10 mg Methadone HCl (Dolophine -) 120 mg PO DAILY@0600 [facility] Last Admin: 09/21/18 05:05 Dose: 120 mg Methylprednisolone Sodium Succinate (Solu-Medrol -) 40 mg IVPUSH BID [facility] Multivitamins/Minerals/Vitamin C (Tab-A-Vit -) 1 tab PO DAILY [facility] Last Admin: 09/21/18 09:27 Dose: 1 tab Quetiapine Fumarate (Seroquel -) 50 mg PO [facility] Last Admin: 09/20/18 21:39 Dose: 50 mg Simethicone (Mylicon -) 80 mg PO QID PRN PRN Reason: DYSPEPSIA Last Admin: 09/20/18 10:00 Dose: 80 mg - Objective Vital Signs: Vital Signs Temperature 98.0 F 09/21/18 15:31 Pulse Rate 81 09/21/18 15:31 Respiratory Rate 18 09/21/18 15:31 Blood Pressure 147/72 09/21/18 15:31 O2 Sat by Pulse Oximetry (%) 94 L 09/21/18 09:00 Constitutional: Yes: Well Nourished, Calm Eyes: Yes: WNL HENT: Yes: WNL Neck: Yes: WNL Cardiovascular: Yes: Regular Rate and Rhythm, S1, S2 Respiratory: Yes: Diminished (RHONCHI), Rhonchi Gastrointestinal: Yes: Normal Bowel Sounds, Soft Extremities: Yes: WNL Edema: No Labs: CBC, BMP 09/21/18 06:10 09/21/18 06:10 INR, PTT INR 1.35 (0.83-1.09) H 09/16/18 07:00 Assessment/Plan Problem List - Problems (1) Acute hypoxemic respiratory failure Code(s): J96.01 - ACUTE RESPIRATORY FAILURE WITH HYPOXIA (2) Emphysema lung Code(s): J43.9 - EMPHYSEMA, UNSPECIFIED (3) Hypertension Code(s): I10 - ESSENTIAL (PRIMARY) HYPERTENSION (4) Lung cancer Code(s): C34.90 - MALIGNANT NEOPLASM OF UNSP PART OF UNSP BRONCHUS OR LUNG (5) Opioid dependence Code(s): F11.20 - OPIOID DEPENDENCE, UNCOMPLICATED (6) Renal cell carcinoma Code(s): C64.9 - MALIGNANT NEOPLASM OF UNSP KIDNEY, EXCEPT RENAL PELVIS (7) S/P TAVR (transcatheter aortic valve replacement) Code(s): Z95.2 - PRESENCE OF PROSTHETIC HEART VALVE (8) Throat cancer Code(s): C14.0 - MALIGNANT NEOPLASM OF PHARYNX, UNSPECIFIED (9) Type 2 diabetes mellitus Code(s): E11.9 - TYPE 2 DIABETES MELLITUS WITHOUT COMPLICATIONS Assessment/Plan Dense bilateral consolidative processes which have developed since 08/22/18 H/O RT to chest and concurrent chemotx. Hypoxemic respiratory failure possibly due to RT pneumonitis/metastatic disease/ superimposed acute infectious process ANEMIA Fio2 to titrate in order to keep spo2 90% or greater steroids antibiotics INHALED BRONCHODILATORS Bronchodilators DVT prophylaxsis glycemic control f/u chest ct outpatient Normal transfusion threshold DR MCCALL
--- NOTE | 2018-09-21 16:05 | PN ---
Physical Exam: SUBJECTIVE: Patient seen and examined at bed side this morning. No complaints. Denies chest pain, sob, cough, palpitation, abdominal pain, nausea or vomiting. OBJECTIVE: Vital Signs Period Temp Pulse Resp BP Sys/Nicholas Pulse Ox Last 24 Hr 97.9 F-98.0 F 59-81 18-18 143-149/70-73 94-95 GENERAL: Middle aged male, sitting comfortably in bed, is awake, alert, and fully oriented, in no acute distress. HEAD: Normal with no signs of trauma. EYES: EOM intact, no pallor or icterus. ENT: Ears normal, moist mucous membranes. NECK: Supple. LUNGS: B/L coarse breath sounds bilaterally, occasional wheeze. HEART: Regular rate and rhythm, S1, S2 with systolic murmur. ABDOMEN: Soft, nontender, no organomegaly. EXTREMITIES: 2+ pulses, warm, well-perfused, no edema. NEUROLOGICAL: No facial droop. Normal speech, gait not observed. PSYCH: Normal mood, normal affect. SKIN: Warm, dry, normal turgor, no rashes or lesions noted Laboratory Results - last 24 hr 09/17/18 09/20/18 09/20/18 06:48 17:25 22:09 WBC RBC Hgb Hct MCV MCH MCHC RDW Plt Count MPV Sodium Potassium Chloride Carbon Dioxide Anion Gap BUN Creatinine Creat Clearance w eGFR POC Glucometer 302 167 Random Glucose Calcium TB Test (QFT) Nil 0.03 TB Test (QFT) Mitogen 0.05 TB Test (QFT) Antigen 0.03 TB Positive Criteria 09/21/18 09/21/18 09/21/18 05:14 06:10 06:10 WBC 9.5 RBC 2.89 L Hgb 8.4 L Hct 26.5 L MCV 91.6 MCH 29.2 MCHC 31.9 L RDW 20.4 H Plt Count 151 MPV 7.8 Sodium 135 L Potassium 5.2 H Chloride 99 Carbon Dioxide 30 Anion Gap 6 L BUN 32 H Creatinine 0.9 Creat Clearance w eGFR > 60 POC Glucometer 196 Random Glucose 170 H Calcium 8.0 L TB Test (QFT) Nil TB Test (QFT) Mitogen TB Test (QFT) Antigen TB Positive Criteria 09/21/18 11:30 WBC RBC Hgb Hct MCV MCH MCHC RDW Plt Count MPV Sodium Potassium Chloride Carbon Dioxide Anion Gap BUN Creatinine Creat Clearance w eGFR POC Glucometer 288 Random Glucose Calcium TB Test (QFT) Nil TB Test (QFT) Mitogen TB Test (QFT) Antigen TB Positive Criteria Active Medications Generic Name Dose Route Start Last Admin Trade Name Freq PRN Reason Stop Dose Admin Albuterol Sulfate 2 puff 09/15/18 22:15 Ventolin Hfa Inhaler - IH Q4H PRN SHORT OF BREATH/WHEEZING Atorvastatin Calcium 20 mg 09/16/18 22:00 09/20/18 21:39 Lipitor - PO 20 mg HS [facility] Administration Fluconazole 100 mg 09/18/18 13:30 09/21/18 09:27 Diflucan - PO 100 mg DAILY [facility] Administration Heparin Sodium (Porcine) 5,000 unit 09/15/18 22:30 09/21/18 13:37 Heparin - SQ 5,000 unit TID [facility] Administration Ceftriaxone Sodium 2 gm/ 50 mls @ 100 mls/hr 09/18/18 13:30 09/21/18 09:34 Dextrose IVPB 100 mls/hr DAILY [facility] Administration Protocol Insulin Aspart 1 vial 09/16/18 07:00 09/21/18 12:06 Novolog Vial Sliding Scale - SQ 6 units ACHS K[facility] Administration Protocol Lisinopril 10 mg 09/16/18 10:00 09/21/18 09:27 Prinivil PO 10 mg DAILY [facility] Administration Methadone HCl 120 mg 09/16/18 09:00 09/21/18 05:05 Dolophine - PO 120 mg DAILY@0600 [facility] Administration Methylprednisolone Sodium Succinate 40 mg 09/21/18 22:00 Solu-Medrol - IVPUSH BID [facility] Multivitamins/Minerals/Vitamin C 1 tab 09/16/18 10:00 09/21/18 09:27 Tab-A-Vit - PO 1 tab DAILY [facility] Administration Quetiapine Fumarate 50 mg 09/16/18 22:00 09/20/18 21:39 Seroquel - PO 50 mg HS [facility] Administration Simethicone 80 mg 09/20/18 09:28 09/20/18 10:00 Mylicon - PO 80 mg QID PRN Administration DYSPEPSIA ASSESSMENT/PLAN: 09/15/[address]: Extensive, diffuse pulmonary consolidation that has significantly worsened since 08/22/18. Extensive mediastinal lymphadenopathy unchanged. ASSESSMENT/PLAN: Patient is a 63 year old man with PMHx of HTN, HLD, DMII, COPD, methadone maintenance therapy, hx of multiple malignancies(lung/throat/kidney), s/p TAVR admitted for acute hypoxic respiratory distress likely due to pneumonia and acute exacerbation of COPD. # Acute hypoxic respiratory distress likely secondary to CAP with bactermia- resolving Continue IV Ceftriaxone and IV Diflucan Day 4 (Throat cx yeast like org) PUSHPA to rule out infective endocarditis unlikely beneficial as per cardio. Quant gold inconclusive # COPD not on home o2 (qualifies for home oxygen) Hypoxic on admission, requiring NC. Pre and post ex sat done At rest, sat 87, at exercise 90 % @ 4L NC, qualifies for home oxygen Continue nebs PRN IV Solumedrol 40mg BID, on tapering dose # Chronic Diastolic HF BNP 4933. ECHO reviewed from 07/05: mildly dilated LV, mildly reduced LV function, severe Cardio consult appreciated. # HTN- controlled Continue Lisinopril 10mg po daily # Hyperlipidemia Continue Lipitor 20mg # DM ISS, Finger stick glucose monitoring, Watch for hypoglycemic episodes # s/p TAVR f/up with visitor services assistant as outpatient. # Hx of substance abuse Continue Methadone 120mg # Lung Ca s/p radiation, on chemo last chemo was in 09/04. States he doesn't have a port, it is through IV, gets weekly F/up with oncologist at [facility] Hx of Laryngeal CA and RCC # Normocytic anemia H/H Stable # FEN Not on IV Fluids Electrolytes: Hyperphosphatemia, repeat in AM. Diabetic/sodium controlled # Prophylaxis For DVT: On heparin sq For GI: Not indicated # Code Status: Discussed regarding code status, he is a full code. # Dispo: Admitted in Med-Surg. Duration of stay unknown. Illness, Investigation and Plan of care explained to the patient. He verbalized understanding. Case discussed with Dr. Nassar. Visit type - Emergency Visit Emergency Visit: Yes ED Registration Date: 09/15/18 Care time: The patient presented to the Emergency Department on the above date and was hospitalized for further evaluation of their emergent condition. - New Patient This patient is new to me today: No - Critical Care Critical Care patient: No - Discharge Referral Referred to [facility] Med [facility].C[facility] No
[2018-09-21] MEDS: SIMETHICONE 80 MG TAB.CHEW (FP) PO PRN (20:24)
[2018-09-21] MEDS: QUEtiapine FUMARATE 50 MG TABLET PO SCH (21:37)
[2018-09-21] MEDS: ATORVASTATIN CA 20 MG TABLET (FP) PO SCH (21:37)
[2018-09-22] MEDS: METHADONE HCL 40 MG DISPERSABLE TABLET PO SCH (06:51)
[2018-09-22] MEDS: HEPARIN NA (PORCINE) 5,000 UNITS/ML 1ML VIAL SQ SCH ×3 (06:51→22:16)
[2018-09-22] MEDS: INSULIN SLIDING SCALE (NOVOLOG) 1 VIAL SQ SCH ×4 (06:52→22:16)
[2018-09-22 09:09] LABS: HEMATOCRIT 29.5 % (35.4-49); HEMOGLOBIN 9.2 GM/dL (11.7-16.9); MCH 28.8 pg (25.7-33.7); MCHC 31.2 g/dl (32.0-35.9); MEAN CELL VOLUME 92.4 fl (80-96); MEAN PLT VOLUME 7.8 fl (7.5-11.1); PLATELET COUNT 199 K/MM3 (134-434); RDW 20.8 % (11.9-15.9); WHITE BLOOD COUNT 11.6 K/mm3 (4.0-10.0)
[2018-09-22] MEDS ORDERED: DEXTROSE 5%-WATER - 50 ML IVPB ONE (09:28)
[2018-09-22] MEDS ORDERED: PT OWN MED DRAWER 7, Y5N ONE (09:28)
[2018-09-22 09:35] LABS: ANION GAP 7 MMOL/L (8-16); BLOOD UREA NITROGEN 31 mg/dL (7-18); CALCIUM 8.4 mg/dL (8.5-10.1); CHLORIDE 99 mmol/L (98-107); CO2 31 mmol/L (21-32); GLUCOSE,RANDOM 63 mg/dL (74-106); POTASSIUM 4.8 mmol/L (3.5-5.1); SODIUM 137 mmol/L (136-145)
[2018-09-22] MEDS: LISINOPRIL 10 MG TABLET (FP) PO SCH (10:03)
[2018-09-22] MEDS: MULTIVITAMINS (DAILY MVI) TABLET (FP) PO SCH (10:04)
[2018-09-22] MEDS: methylPREDNISolone NA SUCC 40 MG/1 ML VIAL IVPUSH SCH (10:04)
[2018-09-22] MEDS: FLUCONAZOLE 100 MG TABLET (UD) PO SCH (10:04)
[2018-09-22] MEDS: CEFTRIAXONE 2 GM in DEXTROSE 5%-WATER - 50 ML IVPB SCH (10:05)
--- NOTE | 2018-09-22 12:13 | PN ---
Progress Note (short form) - Note Progress Note: Overall breathing feels better. Less SOB and cough. No CP. Intake & Output 09/19/18 09/20/18 09/21/18 09/22/18 23:59 23:59 23:59 23:59 Intake Total 761 082 1623 200 Balance 039 578 9128 200 Weight 173 lb 9 oz Last Vital Signs Temp Pulse Resp BP Pulse Ox 97.8 F 62 18 149/62 95 09/22/18 05:45 09/22/18 05:45 09/22/18 05:45 09/22/18 05:45 09/21/18 21:00 Active Medications Albuterol Sulfate (Ventolin Hfa Inhaler -) 2 puff IH Q4H PRN PRN Reason: SHORT OF BREATH/WHEEZING Atorvastatin Calcium (Lipitor -) 20 mg PO HS [facility] Last Admin: 09/21/18 21:37 Dose: 20 mg Fluconazole (Diflucan -) 100 mg PO DAILY [facility] Last Admin: 09/22/18 10:04 Dose: 100 mg Heparin Sodium (Porcine) (Heparin -) 5,000 unit SQ TID [facility] Last Admin: 09/22/18 06:51 Dose: 5,000 unit Ceftriaxone Sodium 2 gm/ (Dextrose) 50 mls @ 100 mls/hr IVPB DAILY [facility]; Protocol Last Admin: 09/22/18 10:05 Dose: 100 mls/hr Insulin Aspart (Novolog Vial Sliding Scale -) 1 vial SQ ACHS [facility]; Protocol Last Admin: 09/22/18 12:08 Dose: Not Given Lisinopril (Prinivil) 10 mg PO DAILY [facility] Last Admin: 09/22/18 10:03 Dose: 10 mg Methadone HCl (Dolophine -) 120 mg PO DAILY@0600 [facility] Last Admin: 09/22/18 06:51 Dose: 120 mg Methylprednisolone Sodium Succinate (Solu-Medrol -) 40 mg IVPUSH BID [facility] Last Admin: 09/22/18 10:04 Dose: 40 mg Multivitamins/Minerals/Vitamin C (Tab-A-Vit -) 1 tab PO DAILY [facility] Last Admin: 09/22/18 10:04 Dose: 1 tab Quetiapine Fumarate (Seroquel -) 50 mg PO HS [facility] Last Admin: 09/21/18 21:37 Dose: 50 mg Simethicone (Mylicon -) 80 mg PO QID PRN PRN Reason: DYSPEPSIA Last Admin: 09/21/18 20:24 Dose: 80 mg Constitutional: Yes: Well Nourished, NAD Eyes: Yes: WNL HENT: Yes: WNL Neck: Yes: WNL Cardiovascular: Yes: Regular Rate and Rhythm, S1, S2 Respiratory: Yes: Few scattered Rhonchi, no wheeze Gastrointestinal: Yes: Normal Bowel Sounds, Soft Extremities: Yes: WNL Edema: No Labs: Laboratory Results - last 24 hr 09/21/18 09/21/18 09/22/18 17:23 21:29 06:50 WBC RBC Hgb Hct MCV MCH MCHC RDW Plt Count MPV Sodium Potassium Chloride Carbon Dioxide Anion Gap BUN Creatinine Creat Clearance w eGFR POC Glucometer 233 159 341 Random Glucose Calcium 09/22/18 09/22/18 08:35 08:35 WBC 11.6 H RBC 3.20 L Hgb 9.2 L Hct 29.5 L MCV 92.4 MCH 28.8 MCHC 31.2 L RDW 20.8 H Plt Count 199 D MPV 7.8 Sodium 137 Potassium 4.8 Chloride 99 Carbon Dioxide 31 Anion Gap 7 L BUN 31 H Creatinine 1.0 Creat Clearance w eGFR > 60 POC Glucometer Random Glucose 63 L Calcium 8.4 L Assessment/Plan Problem List - Problems (1) Acute hypoxemic respiratory failure Code(s): J96.01 - ACUTE RESPIRATORY FAILURE WITH HYPOXIA (2) Emphysema lung Code(s): J43.9 - EMPHYSEMA, UNSPECIFIED (3) Hypertension Code(s): I10 - ESSENTIAL (PRIMARY) HYPERTENSION (4) Lung cancer Code(s): C34.90 - MALIGNANT NEOPLASM OF UNSP PART OF UNSP BRONCHUS OR LUNG (5) Opioid dependence Code(s): F11.20 - OPIOID DEPENDENCE, UNCOMPLICATED (6) Renal cell carcinoma Code(s): C64.9 - MALIGNANT NEOPLASM OF UNSP KIDNEY, EXCEPT RENAL PELVIS (7) S/P TAVR (transcatheter aortic valve replacement) Code(s): Z95.2 - PRESENCE OF PROSTHETIC HEART VALVE (8) Throat cancer Code(s): C14.0 - MALIGNANT NEOPLASM OF PHARYNX, UNSPECIFIED (9) Type 2 diabetes mellitus Code(s): E11.9 - TYPE 2 DIABETES MELLITUS WITHOUT COMPLICATIONS Assessment/Plan Bilateral Pneumococcal PNA H/O RT to chest and concurrent chemotx. Hypoxemic respiratory failure possibly due to RT pneumonitis/metastatic disease/ superimposed acute infectious process ANEMIA NC O@ saturation 88% to 92% ABX per ID Change to Prednisone as bronchospasm seems to have resolved BD TX VTE prophylaxsis Glycemic control f/u chest ct outpatient No smoking Dr Salter
[2018-09-22] MEDS: SIMETHICONE 80 MG TAB.CHEW (FP) PO PRN (13:04)
[2018-09-22] MEDS: predniSONE 20 MG TABLET (UD) PO SCH (13:04)
--- NOTE | 2018-09-22 15:09 | PN ---
Physical Exam: SUBJECTIVE: Patient seen and examined, breathing improved, cough better, no new complaints. OBJECTIVE: Vital Signs Period Temp Pulse Resp BP Sys/Nicholas Pulse Ox Last 24 Hr 97.8 F-98.1 F 62-81 18-20 122-149/58-72 95-96 GENERAL: The patient is awake, alert, and fully oriented, in no acute distress. HEAD: Normal with no signs of trauma. EYES: PERRL, extraocular movements intact, sclera anicteric, conjunctiva clear. No ptosis. ENT: Ears normal, nares patent, oropharynx clear without exudates, moist mucous membranes. NECK: Trachea midline, full range of motion, supple. LUNGS: bibasilar rales R>L, improved air entry, no wheezing HEART: Regular rate and rhythm, S1, S2 ABDOMEN: Soft, nontender, nondistended, normoactive bowel sounds, no guarding, no rebound EXTREMITIES: 2+ pulses, warm, well-perfused, no edema. PSYCH: Normal mood, normal affect. SKIN: Warm, dry, normal turgor, no rashes or lesions noted Laboratory Results - last 24 hr 09/21/18 09/21/18 09/22/18 17:23 21:29 06:50 WBC RBC Hgb Hct MCV MCH MCHC RDW Plt Count MPV Sodium Potassium Chloride Carbon Dioxide Anion Gap BUN Creatinine Creat Clearance w eGFR POC Glucometer 233 159 341 Random Glucose Calcium 09/22/18 09/22/18 09/22/18 08:35 08:35 12:07 WBC 11.6 H RBC 3.20 L Hgb 9.2 L Hct 29.5 L MCV 92.4 MCH 28.8 MCHC 31.2 L RDW 20.8 H Plt Count 199 D MPV 7.8 Sodium 137 Potassium 4.8 Chloride 99 Carbon Dioxide 31 Anion Gap 7 L BUN 31 H Creatinine 1.0 Creat Clearance w eGFR > 60 POC Glucometer 129 Random Glucose 63 L Calcium 8.4 L Active Medications Generic Name Dose Route Start Last Admin Trade Name Freq PRN Reason Stop Dose Admin Albuterol Sulfate 2 puff 09/15/18 22:15 Ventolin Hfa Inhaler - IH Q4H PRN SHORT OF BREATH/WHEEZING Atorvastatin Calcium 20 mg 09/16/18 22:00 09/21/18 21:37 Lipitor - PO 20 mg HS KIRA Administration Fluconazole 100 mg 09/18/18 13:30 09/22/18 10:04 Diflucan - PO 100 mg DAILY [facility] Administration Heparin Sodium (Porcine) 5,000 unit 09/15/18 22:30 09/22/18 13:05 Heparin - SQ 5,000 unit TID [facility]A Administration Ceftriaxone Sodium 2 gm/ 50 mls @ 100 mls/hr 09/18/18 13:30 09/22/18 10:05 Dextrose IVPB 100 mls/hr DAILY [facility]A Administration Protocol Insulin Aspart 1 vial 09/16/18 07:00 09/22/18 12:08 Novolog Vial Sliding Scale - SQ Not Given ACHS [facility] Protocol Lisinopril 10 mg 09/16/18 10:00 09/22/18 10:03 Prinivil PO 10 mg DAILY [facility]A Administration Methadone HCl 120 mg 09/16/18 09:00 09/22/18 06:51 Dolophine - PO 120 mg DAILY@0600 [facility]A Administration Multivitamins/Minerals/Vitamin C 1 tab 09/16/18 10:00 09/22/18 10:04 Tab-A-Vit - PO 1 tab DAILY KIAR Administration Prednisone 40 mg 09/22/18 12:15 09/22/18 13:04 Deltasone - PO 40 mg DAILY [facility]A Administration Quetiapine Fumarate 50 mg 09/16/18 22:00 09/21/18 21:37 Seroquel - PO 50 mg HS K[facility]A Administration Simethicone 80 mg 09/20/18 09:28 09/22/18 13:04 Mylicon - PO 80 mg QID PRN Administration DYSPEPSIA ASSESSMENT/PLAN: 63 year-old male with a PMH significant for HTN, systolic HR, s/p TAVR (2016), COPD, Type II NIDDM, lung, laryngeal, and renal cell carcinoma, lung ca s/p radiation, presently on chemotherapy , methadone dependency admitted with shortness of breath. -Acute hypoxemic respiratory failure -Multilobar PNA -Pneumococcal bacteremia -Sputum cx with Klebsiella -Lung ca s/p radiation, on chemotherapy -Oral candidiasis -severe s/p TAVR -Trace Mitral regurgitation -h/o IVDU -Methadone dependence -Chronic diastolic heart failure -Anemia -HTN -HLD -Laryngeal Ca -Renal Cell Carcinoma -NIDDM -Mild hyperkalemia Plan: ID input noted. Ceftriaxone day 5, Diflucan day 5. Mild WBC elevation, trend for now. ID input noted, 14 days of ceftriaxone. 2D Echo results reviewed. Neg blood cx/clinical improvement, PUSHPA unlikely benefit currently, monitor clinically and follow up with ID/cardiology. Repeat blood cx from 09/17 and 09/18 neg so far, follow up. Hold off standing diuresis. Will need lasix if transfused. Repeat CXr overall the same, some improvement. h/h stable kayexalate x 1,K levels normal. Lisinopril/Lipitor ISS, diabetic diet. Outpatient oncology follow up for additional 2 rounds of chemotherapy when improved. dvTPPX heparin repeat home oxygen needs assessment in 24 hours. PT eval. Dispo planning on Monday with PICC lines and IV ceftriaxone for a total of 14 days. Home oxygen needs assessment. Discussed with CM. Anticipate Home dc with PICC +/- home oxygen on Monday. Plan discussed with patient and nursing, all questions answered. Visit type - Emergency Visit Emergency Visit: Yes ED Registration Date: 09/15/18 Care time: The patient presented to the Emergency Department on the above date and was hospitalized for further evaluation of their emergent condition. - New Patient This patient is new to me today: No - Critical Care Critical Care patient: No - Discharge Referral Referred to [facility] Med [facility].C.: No
[2018-09-22] MEDS: QUEtiapine FUMARATE 50 MG TABLET PO SCH (22:16)
[2018-09-22] MEDS: ATORVASTATIN CA 20 MG TABLET (FP) PO SCH (22:16)
[2018-09-23] MEDS: METHADONE HCL 40 MG DISPERSABLE TABLET PO SCH (07:20)
[2018-09-23] MEDS: INSULIN SLIDING SCALE (NOVOLOG) 1 VIAL SQ SCH ×4 (07:21→21:29)
[2018-09-23] MEDS ORDERED: DEXTROSE 5%-WATER - 50 ML IVPB ONE (10:26)
[2018-09-23] MEDS: predniSONE 20 MG TABLET (UD) PO SCH (10:32)
[2018-09-23] MEDS: FLUCONAZOLE 100 MG TABLET (UD) PO SCH (10:32)
[2018-09-23] MEDS: LISINOPRIL 10 MG TABLET (FP) PO SCH (10:32)
[2018-09-23] MEDS: CEFTRIAXONE 2 GM in DEXTROSE 5%-WATER - 50 ML IVPB SCH (10:32)
[2018-09-23] MEDS: MULTIVITAMINS (DAILY MVI) TABLET (FP) PO SCH (10:32)
--- NOTE | 2018-09-23 12:31 | PN ---
Progress Note (short form) - Note Progress Note: Overall breathing feels better. Less SOB and cough. No CP. Intake & Output 09/20/18 09/21/18 09/22/18 09/23/18 23:59 23:59 23:59 23:59 Intake Total 250 1490 2210 535 Balance 250 1490 2210 535 Weight 173 lb 9 oz Last Vital Signs Temp Pulse Resp BP Pulse Ox 97.5 F L 84 20 123/66 95 09/23/18 10:35 09/23/18 10:35 09/23/18 10:35 09/23/18 10:35 09/22/18 21:00 Active Medications Albuterol Sulfate (Ventolin Hfa Inhaler -) 2 puff IH Q4H PRN PRN Reason: SHORT OF BREATH/WHEEZING Atorvastatin Calcium (Lipitor -) 20 mg PO [facility] Last Admin: 09/22/18 22:16 Dose: 20 mg Fluconazole (Diflucan -) 100 mg PO DAILY [facility] Last Admin: 09/23/18 10:32 Dose: 100 mg Ceftriaxone Sodium 2 gm/ (Dextrose) 50 mls @ 100 mls/hr IVPB DAILY [facility]; Protocol Last Admin: 09/23/18 10:32 Dose: 100 mls/hr Insulin Aspart (Novolog Vial Sliding Scale -) 1 vial SQ ACHS [facility]; Protocol Last Admin: 09/23/18 07:21 Dose: Not Given Lisinopril (Prinivil) 10 mg PO DAILY [facility] Last Admin: 09/23/18 10:32 Dose: 10 mg Multivitamins/Minerals/Vitamin C (Tab-A-Vit -) 1 tab PO DAILY [facility] Last Admin: 09/23/18 10:32 Dose: 1 tab Prednisone (Deltasone -) 40 mg PO DAILY [facility] Last Admin: 09/23/18 10:32 Dose: 40 mg Quetiapine Fumarate (Seroquel -) 50 mg PO HS [facility] Last Admin: 09/22/18 22:16 Dose: 50 mg Simethicone (Mylicon -) 80 mg PO QID PRN PRN Reason: DYSPEPSIA Last Admin: 09/22/18 13:04 Dose: 80 mg Constitutional: Yes: Well Nourished, NAD Eyes: Yes: WNL HENT: Yes: WNL Neck: Yes: WNL Cardiovascular: Yes: Regular Rate and Rhythm, S1, S2 Respiratory: Yes: Few scattered Rhonchi, no wheeze Gastrointestinal: Yes: Normal Bowel Sounds, Soft Extremities: Yes: WNL Edema: No Labs: Laboratory Results - last 24 hr 09/22/18 09/22/18 09/23/18 17:44 22:15 07:20 POC Glucometer 308 173 129 09/23/18 11:36 POC Glucometer 174 Assessment/Plan Problem List - Problems (1) Acute hypoxemic respiratory failure Code(s): J96.01 - ACUTE RESPIRATORY FAILURE WITH HYPOXIA (2) Emphysema lung Code(s): J43.9 - EMPHYSEMA, UNSPECIFIED (3) Hypertension Code(s): I10 - ESSENTIAL (PRIMARY) HYPERTENSION (4) Lung cancer Code(s): C34.90 - MALIGNANT NEOPLASM OF UNSP PART OF UNSP BRONCHUS OR LUNG (5) Opioid dependence Code(s): F11.20 - OPIOID DEPENDENCE, UNCOMPLICATED (6) Renal cell carcinoma Code(s): C64.9 - MALIGNANT NEOPLASM OF UNSP KIDNEY, EXCEPT RENAL PELVIS (7) S/P TAVR (transcatheter aortic valve replacement) Code(s): Z95.2 - PRESENCE OF PROSTHETIC HEART VALVE (8) Throat cancer Code(s): C14.0 - MALIGNANT NEOPLASM OF PHARYNX, UNSPECIFIED (9) Type 2 diabetes mellitus Code(s): E11.9 - TYPE 2 DIABETES MELLITUS WITHOUT COMPLICATIONS Assessment/Plan Bilateral Pneumococcal PNA H/O RT to chest and concurrent chemotx. Hypoxemic respiratory failure possibly due to RT pneumonitis/metastatic disease/ superimposed acute infectious process Anemia NC O2 to maintain saturation 88% to 92% ABX per ID Change to Prednisone as bronchospasm seems to have resolved BD TX VTE prophylaxsis Glycemic control f/u chest ct outpatient No smoking Pre and post ambulation O2 saturation D/C planning Dr Salter
--- NOTE | 2018-09-23 13:29 | PN ---
Physical Exam: SUBJECTIVE: Patient seen and examined, breathing/cough improved, no new complaints. OBJECTIVE: Vital Signs Period Temp Pulse Resp BP Sys/Nicholas Pulse Ox Last 24 Hr 97.5 F-98.6 F 60-97 20-22 123-146/57-67 91-95 GENERAL: The patient is awake, alert, and fully oriented, in no acute distress. HEAD: Normal with no signs of trauma. EYES: PERRL, extraocular movements intact, sclera anicteric, conjunctiva clear. No ptosis. ENT: Ears normal, nares patent, oropharynx clear without exudates, moist mucous membranes. NECK: Trachea midline, full range of motion, supple. LUNGS: bibasilar rales R>L, improved air entry, no wheezing HEART: Regular rate and rhythm, S1, S2 ABDOMEN: Soft, nontender, nondistended, normoactive bowel sounds, no guarding, no rebound EXTREMITIES: 2+ pulses, warm, well-perfused, no edema. PSYCH: Normal mood, normal affect. SKIN: Warm, dry, normal turgor, no rashes or lesions noted Laboratory Results - last 24 hr 09/22/18 09/22/18 09/23/18 17:44 22:15 07:20 POC Glucometer 308 173 129 09/23/18 11:36 POC Glucometer 174 Active Medications Generic Name Dose Route Start Last Admin Trade Name Freq PRN Reason Stop Dose Admin Albuterol Sulfate 2 puff 09/15/18 22:15 Ventolin Hfa Inhaler - IH Q4H PRN SHORT OF BREATH/WHEEZING Atorvastatin Calcium 20 mg 09/16/18 22:00 09/22/18 22:16 Lipitor - PO 20 mg HS [facility] Administration Fluconazole 100 mg 09/18/18 13:30 09/23/18 10:32 Diflucan - PO 100 mg DAILY [facility] Administration Ceftriaxone Sodium 2 gm/ 50 mls @ 100 mls/hr 09/18/18 13:30 09/23/18 10:32 Dextrose IVPB 100 mls/hr DAILY [facility] Administration Protocol Insulin Aspart 1 vial 09/16/18 07:00 09/23/18 12:38 Novolog Vial Sliding Scale - SQ 2 units ACHS [facility] Administration Protocol Lisinopril 10 mg 09/16/18 10:00 09/23/18 10:32 Prinivil PO 10 mg DAILY [facility] Administration Multivitamins/Minerals/Vitamin C 1 tab 09/16/18 10:00 09/23/18 10:32 Tab-A-Vit - PO 1 tab DAILY [facility] Administration Prednisone 40 mg 09/22/18 12:15 09/23/18 10:32 Deltasone - PO 40 mg DAILY [facility] Administration Quetiapine Fumarate 50 mg 09/16/18 22:00 09/22/18 22:16 Seroquel - PO 50 mg HS [facility] Administration Simethicone 80 mg 09/20/18 09:28 09/22/18 13:04 Mylicon - PO 80 mg QID PRN Administration DYSPEPSIA ASSESSMENT/PLAN: 63 year-old male with a PMH significant for HTN, systolic HR, s/p TAVR (2015), COPD, Type II NIDDM, lung, laryngeal, and renal cell carcinoma, lung ca s/p radiation, presently on chemotherapy , methadone dependency admitted with shortness of breath. -Acute hypoxemic respiratory failure -Multilobar PNA -Pneumococcal bacteremia -Sputum cx with Klebsiella -Lung ca s/p radiation, on chemotherapy -Oral candidiasis -severe s/p TAVR -Trace Mitral regurgitation -h/o IVDU -Methadone dependence -Chronic diastolic heart failure -Anemia -HTN -HLD -Laryngeal Ca -Renal Cell Carcinoma -NIDDM -Mild hyperkalemia Plan: ID input noted. Ceftriaxone day 03/01, diflucan day 6. WBC rising, ?steroids, trend for now. Prednisone changed to PO. Pulmonary input noted. 2D Echo results reviewed. Neg blood cx/clinical improvement, PUSHPA unlikely benefit currently, monitor clinically and follow up with ID/cardiology. Repeat blood cx from 09/17 and 09/18 neg so far, follow up. Hold off standing diuresis. Will need lasix if transfused. Repeat CXr overall the same, some improvement. h/h stable kayexalate x 1,K levels normal. Lisinopril/Lipitor ISS, diabetic diet. Outpatient oncology follow up for additional 2 rounds of chemotherapy when improved. dvTPPX heparin No home oxygen needs on repeat eval. PT eval. Dispo planning on Monday with PICC lines and IV ceftriaxone for a total of 14 days if no new concerns. Discussed with CM. Anticipate Home dc with PICC +/- home oxygen on Monday. Plan discussed with patient and nursing, all questions answered. Visit type - Emergency Visit Emergency Visit: Yes ED Registration Date: 09/15/18 Care time: The patient presented to the Emergency Department on the above date and was hospitalized for further evaluation of their emergent condition. - New Patient This patient is new to me today: No - Critical Care Critical Care patient: No - Discharge Referral Referred to [facility] No
[2018-09-23 13:34] LABS: BASO % 0.3 % (0-2.0); EOS % 0.4 % (0-4.5); HEMOGLOBIN 8.9 GM/dL (11.7-16.9); LYMPH % 4.5 % (8-40); MCH 28.6 pg (25.7-33.7); MCHC 30.8 g/dl (32.0-35.9); MEAN PLT VOLUME 7.9 fl (7.5-11.1); MONO % 5.5 % (3.8-10.2); NEUT % 89.3 % (42.8-82.8); PLATELET COUNT 194 K/MM3 (134-434); RBC 3.12 M/mm3 (4.00-5.60); RDW 20.9 % (11.9-15.9); WHITE BLOOD COUNT 13.7 K/mm3 (4.0-10.0)
[2018-09-23 18:14] LABS: ANISOCYTOSIS 1+; MACROCYTOSIS 0; PLATELET ESTIMATE NORMAL
[2018-09-23] MEDS: SIMETHICONE 80 MG TAB.CHEW (FP) PO PRN (20:09)
[2018-09-23] MEDS: QUEtiapine FUMARATE 50 MG TABLET PO SCH (21:29)
[2018-09-23] MEDS: ATORVASTATIN CA 20 MG TABLET (FP) PO SCH (21:29)
[2018-09-24] MEDS: INSULIN SLIDING SCALE (NOVOLOG) 1 VIAL SQ SCH ×2 (06:47→13:46)
[2018-09-24 08:15] LABS: BASO % 0.3 % (0-2.0); EOS % 0.7 % (0-4.5); HEMATOCRIT 24.6 % (35.4-49); HEMOGLOBIN 8.4 GM/dL (11.7-16.9); LYMPH % 8.6 % (8-40); MCH 31.2 pg (25.7-33.7); MCHC 34.2 g/dl (32.0-35.9); MEAN CELL VOLUME 91.2 fl (80-96); NEUT % 83.4 % (42.8-82.8); PLATELET COUNT 162 K/MM3 (134-434); RBC 2.69 M/mm3 (4.00-5.60); RDW 21.1 % (11.9-15.9); WHITE BLOOD COUNT 8.6 K/mm3 (4.0-10.0)
[2018-09-24] MEDS ORDERED: METHADONE HCL 40 MG DISPERSABLE TABLET PO SCH (08:45)
[2018-09-24] MEDS ORDERED: DEXTROSE 5%-WATER - 50 ML IVPB ONE (10:29)
[2018-09-24] MEDS ORDERED: PT OWN MED DRAWER 7, Y5N ONE (10:29)
[2018-09-24] MEDS: LISINOPRIL 10 MG TABLET (FP) PO SCH (10:34)
[2018-09-24] MEDS: FLUCONAZOLE 100 MG TABLET (UD) PO SCH (10:34)
[2018-09-24] MEDS: predniSONE 20 MG TABLET (UD) PO SCH (10:34)
[2018-09-24] MEDS: MULTIVITAMINS (DAILY MVI) TABLET (FP) PO SCH (10:34)
[2018-09-24] MEDS: CEFTRIAXONE 2 GM in DEXTROSE 5%-WATER - 50 ML IVPB SCH (10:34)
--- NOTE | 2018-09-24 11:08 | PN ---
Teaching Attending Note Name of Resident: Sandee Bryan ATTENDING PHYSICIAN STATEMENT I saw and evaluated the patient. I reviewed the resident's note and discussed the case with the resident. I agree with the resident's findings and plan as documented with exceptions below. SUBJECTIVE: Patient seen and examined. Breathing and cough continue to improve, no new concerns. OBJECTIVE: Vital Signs Period Temp Pulse Resp BP Sys/Nicholas Pulse Ox Last 24 Hr 98.0 F-98.3 F 53-97 20-22 132-149/50-96 91-92 Intake & Output 09/21/18 09/22/18 09/23/18 09/24/18 23:59 23:59 23:59 23:59 Intake Total 1490 2210 1895 120 Balance 1490 2210 1895 120 Weight 173 lb 9 oz General: sitting in bed in no acute distress Chest: bibasilar rales, no wheezing Abdomen: soft, NT, ND Extremities: no edema ASSESSMENT AND PLAN: 63 year-old male with a PMH significant for HTN, systolic HR, s/p TAVR (2016), COPD, Type II NIDDM, lung, laryngeal, and renal cell carcinoma, lung ca s/p radiation, presently on chemotherapy , methadone dependency admitted with shortness of breath. -Acute hypoxemic respiratory failure -Multilobar PNA -Pneumococcal bacteremia -Sputum cx with Klebsiella -Lung ca s/p radiation, on chemotherapy -Oral candidiasis -severe s/p TAVR -Trace Mitral regurgitation -h/o IVDU -Methadone dependence -Chronic diastolic heart failure -Anemia -HTN -HLD -Laryngeal Ca -Renal Cell Carcinoma -NIDDM -Mild hyperkalemia Plan: ID input noted. Ceftriaxone day 14, diflucan day 7, symptoms resolved, dc after today. WBC stable today. Prednisone changed to PO. Pulmonary input noted. taper every 2 days to off. 2D Echo results reviewed. Neg blood cx/clinical improvement, PUSHPA unlikely benefit currently, monitor clinically and follow up with ID/cardiology. Repeat blood cx from 09/17 and 09/18 neg so far, follow up. Hold off standing diuresis. Will need lasix if transfused. Repeat CXr overall the same, some improvement. h/h stable kayexalate x 1,K levels normal. Lisinopril/Lipitor ISS, diabetic diet. Outpatient oncology follow up for additional 2 rounds of chemotherapy when improved. dvTPPX heparin No home oxygen needs on repeat eval. PT eval. Dispo plan for d/c home with PICC and abx today. Plan discussed with patient, nursing and daughter at bedside in detail, all questions answered.
--- NOTE | 2018-09-24 12:53 | PN ---
Progress Note (short form) - Note Progress Note: Overall breathing feels better. Less SOB and cough. No CP. Intake & Output 09/21/18 09/22/18 09/23/18 09/24/18 23:59 23:59 23:59 23:59 Intake Total 1490 2210 1895 120 Balance 1490 2210 1895 120 Weight 173 lb 9 oz Last Vital Signs Temp Pulse Resp BP Pulse Ox 98.0 F 53 L 20 142/50 L 92 L 09/24/18 05:00 09/24/18 05:00 09/24/18 05:00 09/24/18 05:00 09/23/18 21:00 Active Medications Albuterol Sulfate (Ventolin Hfa Inhaler -) 2 puff IH Q4H PRN PRN Reason: SHORT OF BREATH/WHEEZING Atorvastatin Calcium (Lipitor -) 20 mg PO [facility] Last Admin: 09/23/18 21:29 Dose: 20 mg Fluconazole (Diflucan -) 100 mg PO DAILY [facility] Last Admin: 09/24/18 10:34 Dose: 100 mg Ceftriaxone Sodium 2 gm/ (Dextrose) 50 mls @ 100 mls/hr IVPB DAILY [facility]; Protocol Last Admin: 09/24/18 10:34 Dose: 100 mls/hr Insulin Aspart (Novolog Vial Sliding Scale -) 1 vial SQ ACHS [facility]; Protocol Last Admin: 09/24/18 06:47 Dose: Not Given Lisinopril (Prinivil) 10 mg PO DAILY [facility] Last Admin: 09/24/18 10:34 Dose: 10 mg Methadone HCl (Dolophine -) 120 mg PO DAILY@0600 [facility] Last Admin: 09/24/18 10:31 Dose: 120 mg Multivitamins/Minerals/Vitamin C (Tab-A-Vit -) 1 tab PO DAILY [facility] Last Admin: 09/24/18 10:34 Dose: 1 tab Prednisone (Deltasone -) 40 mg PO DAILY [facility] Last Admin: 09/24/18 10:34 Dose: 40 mg Quetiapine Fumarate (Seroquel -) 50 mg PO HS [facility] Last Admin: 09/23/18 21:29 Dose: 50 mg Simethicone (Mylicon -) 80 mg PO QID PRN PRN Reason: DYSPEPSIA Last Admin: 09/23/18 20:09 Dose: 80 mg Constitutional: Yes: Well Nourished, NAD Eyes: Yes: WNL HENT: Yes: WNL Neck: Yes: WNL Cardiovascular: Yes: Regular Rate and Rhythm, S1, S2 Respiratory: Yes: Few scattered Rhonchi, no wheeze Gastrointestinal: Yes: Normal Bowel Sounds, Soft Extremities: Yes: WNL Edema: No Labs: Laboratory Results - last 24 hr 09/23/18 09/23/18 09/23/18 10:00 16:25 21:27 WBC 13.7 H RBC 3.12 L Hgb 8.9 L Hct 29.0 L MCV 93.0 MCH 28.6 MCHC 30.8 L RDW 20.9 H Plt Count 194 MPV 7.9 Absolute Neuts (auto) 12.3 H Neutrophils % 89.3 H Lymphocytes % 4.5 L D Monocytes % 5.5 Eosinophils % 0.4 D Basophils % 0.3 Nucleated RBC % 0 Hypochromia 1+ Platelet Estimate Normal Polychromasia 1+ Poikilocytosis 0 Anisocytosis 1+ Microcytosis 0 Macrocytosis 0 Fragmented RBCs 1+ POC Glucometer 243 238 09/24/18 09/24/18 06:30 06:46 WBC 8.6 RBC 2.69 L Hgb 8.4 L Hct 24.6 L D MCV 91.2 MCH 31.2 MCHC 34.2 RDW 21.1 H Plt Count 162 MPV 8.0 Absolute Neuts (auto) 7.2 Neutrophils % 83.4 H Lymphocytes % 8.6 D Monocytes % 7.0 Eosinophils % 0.7 Basophils % 0.3 Nucleated RBC % 0 Hypochromia Platelet Estimate Polychromasia Poikilocytosis Anisocytosis Microcytosis Macrocytosis Fragmented RBCs POC Glucometer 88 Assessment/Plan Problem List - Problems (1) Acute hypoxemic respiratory failure Code(s): J96.01 - ACUTE RESPIRATORY FAILURE WITH HYPOXIA (2) Emphysema lung Code(s): J43.9 - EMPHYSEMA, UNSPECIFIED (3) Hypertension Code(s): I10 - ESSENTIAL (PRIMARY) HYPERTENSION (4) Lung cancer Code(s): C34.90 - MALIGNANT NEOPLASM OF UNSP PART OF UNSP BRONCHUS OR LUNG (5) Opioid dependence Code(s): F11.20 - OPIOID DEPENDENCE, UNCOMPLICATED (6) Renal cell carcinoma Code(s): C64.9 - MALIGNANT NEOPLASM OF UNSP KIDNEY, EXCEPT RENAL PELVIS (7) S/P TAVR (transcatheter aortic valve replacement) Code(s): Z95.2 - PRESENCE OF PROSTHETIC HEART VALVE (8) Throat cancer Code(s): C14.0 - MALIGNANT NEOPLASM OF PHARYNX, UNSPECIFIED (9) Type 2 diabetes mellitus Code(s): E11.9 - TYPE 2 DIABETES MELLITUS WITHOUT COMPLICATIONS Assessment/Plan Bilateral Pneumococcal PNA H/O RT to chest and concurrent chemotx. Hypoxemic respiratory failure possibly due to RT pneumonitis/metastatic disease/ superimposed acute infectious process Anemia ABX per ID Prednisone BD TX VTE prophylaxsis Glycemic control f/u chest ct outpatient No smoking Pre and post ambulation O2 saturation D/C planning Dr Salter
--- NOTE | 2018-09-24 14:18 | DS ---
Physical Exam: SUBJECTIVE: Patient seen and examined at bed side this morning. States he feels better. ROS negative. Daughter at bedside, all questions answered. OBJECTIVE: Vital Signs Period Temp Pulse Resp BP Sys/Nicholas Pulse Ox Last 24 Hr 98.0 F-98.3 F 53-90 20-22 132-149/50-96 92 PHYSICAL EXAM GENERAL: Middle aged male, sitting comfortably in bed, is awake, alert, and fully oriented, in no acute distress. EYES: EOM intact, no pallor or icterus. NECK: Supple. LUNGS: B/L coarse breath sounds bilaterally improved, occasional wheeze. HEART: Regular rate and rhythm, S1, S2 with systolic murmur. ABDOMEN: Soft, nontender, no organomegaly. EXTREMITIES: 2+ pulses, warm, well-perfused, no edema. NEUROLOGICAL: No facial droop. Normal speech, gait not observed. PSYCH: Normal mood, normal affect. SKIN: Warm, dry, normal turgor, no rashes or lesions noted LABS Laboratory Results - last 24 hr 09/23/18 09/23/18 09/23/18 10:00 16:25 21:27 WBC RBC Hgb Hct MCV MCH MCHC RDW Plt Count MPV Absolute Neuts (auto) Neutrophils % Lymphocytes % Monocytes % Eosinophils % Basophils % Nucleated RBC % Hypochromia 1+ Platelet Estimate Normal Polychromasia 1+ Poikilocytosis 0 Anisocytosis 1+ Microcytosis 0 Macrocytosis 0 Fragmented RBCs 1+ POC Glucometer 243 238 09/24/18 09/24/18 06:30 06:46 WBC 8.6 RBC 2.69 L Hgb 8.4 L Hct 24.6 L D MCV 91.2 MCH 31.2 MCHC 34.2 RDW 21.1 H Plt Count 162 MPV 8.0 Absolute Neuts (auto) 7.2 Neutrophils % 83.4 H Lymphocytes % 8.6 D Monocytes % 7.0 Eosinophils % 0.7 Basophils % 0.3 Nucleated RBC % 0 Hypochromia Platelet Estimate Polychromasia Poikilocytosis Anisocytosis Microcytosis Macrocytosis Fragmented RBCs POC Glucometer 88 Microbiology 09/19/18 11:25 Blood - Peripheral Venous Blood Culture - Final NO GROWTH AFTER 5 DAYS INCUBATION 09/18/18 20:00 Blood - Peripheral Venous Blood Culture - Final NO GROWTH AFTER 5 DAYS INCUBATION 09/16/18 12:05 Blood - Peripheral Venous Blood Culture - Final NO GROWTH AFTER 5 DAYS INCUBATION 09/16/18 12:10 Blood - Peripheral Venous Blood Culture - Final NO GROWTH AFTER 5 DAYS INCUBATION 09/15/18 12:30 Blood - Peripheral Venous Blood Culture - Final NO GROWTH AFTER 5 DAYS INCUBATION 09/15/18 12:30 Blood - Peripheral Venous Blood Culture - Final Streptococcus Pneumoniae 09/15/18 10:32 Sputum - Expectorated Gram Stain - Final 09/15/18 10:32 Sputum - Expectorated Sputum Culture - Final Klebsiella Pneumoniae Yeast Like Organism 09/15/18 23:07 Urine - Urine Clean Catch Urine Culture - Final NO GROWTH OBTAINED 09/16/18 13:06 Throat Throat Culture - Final Yeast Like Organism 09/15/18 23:07 Urine For Antigen Detection Legionella Antigen - Final 09/15/18 23:07 Urine For Antigen Detection Streptococcus pneumoniae Antigen (M - Final 09/15/[address]: Extensive, diffuse pulmonary consolidation that has significantly worsened since 08/22/18. Extensive mediastinal lymphadenopathy unchanged. ECHO 07/05: mildly dilated LV, mildly reduced LV function, severe HOSPITAL COURSE: Date of Admission:09/15/18 Date of Discharge: 09/24/18 Patient is a 63 year old man with PMHx of HTN, HLD, DMII, COPD, methadone maintenance therapy, hx of multiple malignancies(lung/throat/kidney), s/p TAVR admitted for acute hypoxic respiratory distress likely due to pneumonia and acute exacerbation of COPD. Blood culture x 1 bottle positive for Strep pneumonia 09/15/18, started on Ceftriaxone and IV Diflucan 03/31 (completed) and to continue Ceftriaxone for 5 more days. PICC line placed today 09/24/18, VNS services arranged. Steroids were tapered from IV to PO prednisone and now sending the patient on 7 day taper. Patient continued to have Shortness of breath (not on home oxygen), pre and post exercise oxygen saturation was done, qualifies for home oxygen. Patient's symptoms have improved, hemodynamically stable and can be discharged home. Plan of care explained to the patient and his daughter. They verbalized understanding. Minutes to complete discharge: 45 Discharge Summary Reason For Visit: BNP PNEUMONIA Current Active Problems Acute hypoxemic respiratory failure (Acute) Bacteremia (Acute) Shortness of breath (Chronic) Condition: Improved - Instructions Diet, Activity, Other Instructions: You were admitted for the treatment of Pneumonia and treated with IV antibiotics. You also had infection in the blood called bacteremia so you will require few more days of IV antibiotics. Sending you home on IV antibiotics for 5 more days. MEDICATIONS: IV Ceftriaxone 2 gm daily for 5 more days through a PICC line. Visiting nursing services has been arranged. PICC line to be removed after the antibiotics are done. ACTIVITY: As tolerated FOLLOW UPS: Please follow up with your oncologist and repeat CT chest in 2-4 weeks outpatient Also follow up with your primary care physician/manager trade within this week. If your symptoms worsen or you develop any new symptoms, please call 911 and call the doctor. Referrals: Mayco Adkins MD [Primary Care Provider] - Disposition: VNS/HOME HEALTH CARE - Home Medications Comprehensive Discharge Medication List: Ambulatory Orders Albuterol 2.5/Ipratropium 0.5 [Duoneb -] 1 neb IH QID 09/15/18 Aspirin [ASA -] 81 mg PO DAILY 09/15/18 Glipizide 5 mg PO DAILY 09/15/18 Lisinopril 10 mg PO DAILY 09/15/18 Metformin HCl [Metformin HCl ER] 1,000 mg PO BID 09/15/18 Methadone [Dolophine -] 120 mg PO DAILY 09/15/18 Multivitamins [Multivit ([facility] Formulary)] 1 tab PO DAILY 09/15/18 Simvastatin 40 mg PO HS 09/15/18 Ceftriaxone [Rocephin 2Gm Ivpb (Pre-Docked)] 2 gm IVPB DAILY 5 Days #5 vial 04/05 Quetiapine Fumarate [Seroquel -] 50 mg PO HS 09/24/18 predniSONE [Deltasone -] See Taper PO DAILY #6 tablet 09/24/18 This patient is new to me today: Yes Date on this admission: 09/24/18 Emergency Visit: No Critical Care patient: No - Discharge Referral Referred to [facility] Med P.C.: No
[2018-09-24 15:28] VITALS: BP 137/74; PULSE 79; TEMP 97.9
== END 2018-09-24 15:30 | disposition home health service (06) | DRG 193 ==
LOC: JER 11:35 → JERBED 19:19 → UNDOADMIN 19:55 → JERBED 19:55 → J5S 09-16 00:03
PROVIDERS: ADMIT Internal Medicine; ATTEND Hospitalist
PROC: 02HV33Z Insertion of Infusion Device into Superior Vena Cava, Percutaneous Approach (ICD-10-PCS; principal; 2018-09-24)
PROC: B518ZZA Fluoroscopy of Superior Vena Cava, Guidance (ICD-10-PCS; 2018-09-24)
DX: J13 Pneumonia due to Streptococcus pneumoniae (principal); J96.01 Acute respiratory failure with hypoxia; C34.90 Malignant neoplasm of unspecified part of unspecified bronchus or lung; C77.9 Secondary and unspecified malignant neoplasm of lymph node, unspecified; C79.00 Secondary malignant neoplasm of unspecified kidney and renal pelvis; F11.20 Opioid dependence, uncomplicated; E87.2 Acidosis; E87.1 Hypo-osmolality and hyponatremia; C64.9 Malignant neoplasm of unspecified kidney, except renal pelvis; N39.0 Urinary tract infection, site not specified; I50.42 Chronic combined systolic (congestive) and diastolic (congestive) heart failure; B37.0 Candidal stomatitis; J44.1 Chronic obstructive pulmonary disease with (acute) exacerbation; E11.9 Type 2 diabetes mellitus without complications; E78.00 Pure hypercholesterolemia, unspecified; D64.9 Anemia, unspecified; I35.0 Nonrheumatic aortic (valve) stenosis; I11.0 Hypertensive heart disease with heart failure; C14.0 Malignant neoplasm of pharynx, unspecified; Z95.2 Presence of prosthetic heart valve; E87.5 Hyperkalemia
CPT/HCPCS: 36415; 36569; 36600; 71045-TC-FY; 71046-TC-FY; 71260-TC; 77001-TC-FY; 80048; 80053; 81003; 81015; 82375; 82550; 82803; 82962; 83050; 83605; 83735; 83880; 83930; 83935; 84100; 84300; 84484; 85025; 85027; 85610; 85730; 86480; 86850; 86900; 86901; 87040; 87070; 87077; 87086; 87186; 87205; 87804; 87880; 87899; 93005; 93010; 93306-TC; 94640; 94761; 97116-GP; 97161-GP; 99284-25; C1751; J1644

== ENCOUNTER 2019-05-24 08:15 | Emergency (ER) | payer OTHER ==
[2019-05-24 08:30] VITALS: BP 107/62; PULSE 74; TEMP 99.5; BMI 58.0
--- NOTE | 2019-05-24 09:28 | PDOC ---
History of Present Illness - General Chief Complaint: Cold Symptoms Stated Complaint: COUGH / SORE THROAT Time Seen by Provider: 05/24/19 08:44 History Source: Patient, Old Records Exam Limitations: No Limitations - History of Present Illness Initial Comments: 05/24/19 09:25 64 yo M smoker w/ a h/o lung CA (currently on immunotherapy), HTN, DM, on the methadone program comes in c/o 8 days of a cough productive of whitish sputum, no blood, no SOB, no other complaints today. Denies runny/stuffy nose, no fever/ chills, no NVD, no change in appetite, no chest pain, no abdominal pain, no weight loss. He states that he had a "lung infection" 2 weeks ago and was placed on antibiotics which he finished. he does not recall the name of it. He has an appointment with his lot porter today, Dr. Lucia. 05/24/19 09:55 Past History - Past Medical History Allergies/Adverse Reactions: Allergies Allergy/AdvReac Type Severity Reaction Status Date / Time azithromycin AdvReac Verified 09/15/18 11:48 Home Medications: Ambulatory Orders Albuterol 2.5/Ipratropium 0.5 [Duoneb -] 1 neb IH QID 09/15/18 Aspirin [ASA -] 81 mg PO DAILY 09/15/18 Glipizide 5 mg PO DAILY 09/15/18 Lisinopril 10 mg PO DAILY 09/15/18 Methadone [Dolophine -] 80 mg PO DAILY 09/15/18 Multivitamins [Multivit ([facility] Formulary)] 1 tab PO DAILY 09/15/18 Simvastatin 40 mg PO HS 09/15/18 metFORMIN HCL [Metformin ER Gastric] 1,000 mg PO BID 09/15/18 Quetiapine Fumarate [Seroquel -] 50 mg PO HS 09/24/18 Anemia: Yes Asthma: No Cancer: Yes (Lung, kidney, lymph nodes) Cardiac Disorders: Yes (valve replacement 2017) CVA: Yes (2010) COPD: Yes CHF: No DVT: No Dementia: No Diabetes: Yes GI Disorders: No Disorders: No HTN: Yes Hypercholesterolemia: Yes Liver Disease: No Seizures: No Thyroid Disease: No - Surgical History Abdominal Surgery: No Appendectomy: No Cardiac Surgery: Yes (heart valve replaced) Cholecystectomy: No Lung Surgery: Yes (part of lung removed due to cancer) Neurologic Surgery: No Orthopedic Surgery: No - Immunization History Immunization Up to Date: No - Suicide/Smoking/Psychosocial Hx Smoking History: Current every day smoker Have you smoked in the past 12 months: Yes Number of Cigarettes Smoked Daily: 5 If you are a former smoker, when did you quit?: 06/19/2018 Information on smoking cessation initiated: No 'Breaking Loose' booklet given: 08/21/18 Hx Alcohol Use: No Drug/Substance Use Hx: No Substance Use Type: None Hx Substance Use Treatment: Yes Review of Systems - Review of Systems Able to Perform ROS?: Yes Constitutional: No: Chills, Fever, Malaise, Night Sweats HEENTM: No: Eye Pain, Recent change in vision, Throat Pain Respiratory: Yes: Cough. No: Shortness of Breath Cardiac (ROS): No: Chest Pain, Palpitations, Chest Tightness ABD/GI: No: Diarrhea, Nausea, Vomiting, Abdominal cramping : No: Dysuria, Hematuria Musculoskeletal: No: Back Pain Integumentary: No: Rash Neurological: No: Headache, Numbness, Dizziness Psychiatric: No: Change in Appetite Endocrine: No: Unexplained Weight Loss *Physical Exam - Vital Signs Last Vital Signs Temp Pulse Resp BP Pulse Ox 99.5 F 74 16 107/62 96 05/24/19 08:26 05/24/19 08:26 05/24/19 08:26 05/24/19 08:26 05/24/19 08:26 - Physical Exam General Appearance: Yes: Nourished. No: Apparent Distress HEENT: positive: FRANCK, Normal ENT Inspection, Normal Voice, Pharyngeal Erythema. negative: Pale Conjunctivae, Scleral Icterus (R), Scleral Icterus (L) Neck: positive: Supple. negative: Decreased range of motion, Tender midline Respiratory/Chest: positive: Lungs Clear, Decreased Breath Sounds (all throughout.). negative: Respiratory Distress, Accessory Muscle Use, Rhonchi, Stridor, Wheezing Cardiovascular: positive: Regular Rhythm, Regular Rate Gastrointestinal/Abdominal: positive: Normal Bowel Sounds, Soft. negative: Tender Musculoskeletal: positive: Normal Inspection. negative: CVA Tenderness, Decreased Range of Motion Extremity: positive: Normal Capillary Refill, Normal Inspection, Normal Range of Motion. negative: Tender, Pedal Edema Integumentary: positive: Normal Color, Dry. negative: Jaundice, Rash Neurologic: positive: Fully Oriented, Alert, Normal Mood/Affect ED Treatment Course - RADIOLOGY Radiology Studies Ordered: Category Date Time Status CHEST PA & LAT [RAD] Stat Radiology 05/24/19 09:09 Taken Medical Decision Making - Medical Decision Making 05/24/19 09:57 64 yo smoker M w/ a h/o Lung CA, on immunotherapy p/w cough for a week, recently finished a course of antibiotics for a lung infection. He has an appointment with Dr. Lucia today. Will repeat CXR and contact Dr. Lucia. CXR shows new infiltrate. I spoke to Dr. Lucia who says to send patient over, he will see him. No need to give him any antibiotics. Pt verbalized understanding and agrees with plan. *DC/Admit/Observation/Transfer Diagnosis at time of Disposition: Cough - Discharge Dispostion Disposition: HOME Condition at time of disposition: Stable - Referrals Referrals: Mayco Adkins MD [Primary Care Provider] - Agustin Lucia MD, MD [Staff Physician] - - Patient Instructions Additional Instructions: Please Go see Dr. Lucia now. I spoke to him and he is expecting you. - Post Discharge Activity
== END 2019-05-24 10:00 | disposition home or self-care (01) ==
LOC: JERFT 08:15
DX: R05 Cough (principal); Z85.118 Personal history of other malignant neoplasm of bronchus and lung; F17.210 Nicotine dependence, cigarettes, uncomplicated; I10 Essential (primary) hypertension; E78.00 Pure hypercholesterolemia, unspecified
CPT/HCPCS: 71046-TC-FY; 99281-25

== ENCOUNTER 2020-12-02 13:07 | Emergency (ER) | payer OTHER ==
[2020-12-02 13:20] VITALS: BMI 28.0
[2020-12-02 15:08] LABS: BASO % 0.9 % (0-2.0); EOS % 0.6 % (0-4.5); HEMATOCRIT 30.8 % (35.4-49); HEMOGLOBIN 9.9 GM/dL (11.7-16.9); LYMPH % 13.1 % (8-40); MCH 26.9 pg (25.7-33.7); MCHC 32.1 g/dl (32.0-35.9); MEAN PLT VOLUME 8.2 fl (7.5-11.1); NEUT % 70.4 % (42.8-82.8); PLATELET COUNT 264 K/MM3 (134-434); RBC 3.67 M/mm3 (4.00-5.60); RDW 18.2 % (11.9-15.9); WHITE BLOOD COUNT 10.2 K/mm3 (4.0-10.0)
[2020-12-02 15:24] VITALS: BP 130/86
[2020-12-02 15:25] LABS: CHLORIDE 102 mmol/L (98-107); POTASSIUM 5.6 mmol/L (3.5-5.1); SODIUM 135 mmol/L (136-145)
[2020-12-02 15:28] LABS: ALBUMIN 2.5 g/dl (3.4-5.0); BLOOD UREA NITROGEN 19.6 mg/dL (7-18); GLUCOSE,RANDOM 132 mg/dL (74-106)
[2020-12-02 15:31] LABS: CREATININE 1.1 mg/dL (0.55-1.3); SGOT/AST 19 U/L (15-37)
[2020-12-02 15:33] LABS: BILIRUBIN,TOTAL 0.2 mg/dL (0.2-1); TOT PROT 6.3 g/dl (6.4-8.2)
[2020-12-02 15:36] LABS: ALK PHOS 109 U/L (45-117); ANION GAP 3 MMOL/L (8-16); CALCIUM 8.6 mg/dL (8.5-10.1); CO2 31 mmol/L (21-32); N-TERMINAL BNP 11185.8 pg/ml (5-125); SGPT/ALT 17 U/L (13-61)
[2020-12-02] MEDS ORDERED: HYDROmorphone HCL CARPU-JECT 2 MG/1 ML DISP.SYRIN IVPUSH ONE (15:54)
[2020-12-02] MEDS ORDERED: HYDROmorphone HCl 2 MG/ML VIAL ONE (16:00)
[2020-12-02 19:06] VITALS: PULSE 86; TEMP 98.9
== END 2020-12-02 19:06 | disposition home or self-care (01) ==
LOC: JER 13:07
PROC: 3E033NZ Introduction of Analgesics, Hypnotics, Sedatives into Peripheral Vein, Percutaneous Approach (ICD-10-PCS; principal; 2020-12-02)
DX: C34.90 Malignant neoplasm of unspecified part of unspecified bronchus or lung (principal); R07.9 Chest pain, unspecified
CPT/HCPCS: 36415; 70450-TC; 71045-TC-FY; 80053; 83880; 84484; 85025; 87040; 87804; 93005; 93010; 99285-25; C9803; U0003

== ENCOUNTER 2021-01-07 16:40 | Inpatient (IN) | payer OTHER ==
[2021-01-07] MEDS ORDERED: morphine CARPU-JECT 4 MG/1 ML DISP.SYRIN IVPUSH ONE (18:30)
[2021-01-07] MEDS ORDERED: morphine SULFATE 4 MG/ML VIAL ONE (19:05)
[2021-01-07] MEDS ORDERED: DOCUSATE SODIUM 100 MG CAPSULE (FP) PO PRN (22:04)
[2021-01-07] MEDS ORDERED: MORPHINE SULFATE 2 MG/ML VIAL IVPUSH PRN ×2 (22:09→22:18)
[2021-01-07] MEDS ORDERED: ALPRAZolam 1 MG TABLET PO PRN (22:17)
[2021-01-07 23:23] LABS: BASO % 0.6 % (0-2.0); EOS % 5.2 % (0-4.5); HEMATOCRIT 30.6 % (35.4-49); HEMOGLOBIN 9.6 GM/dL (11.7-16.9); LYMPH % 4.3 % (8-40); MCH 26.1 pg (25.7-33.7); MCHC 31.3 g/dl (32.0-35.9); MEAN CELL VOLUME 83.5 fl (80-96); MEAN PLT VOLUME 8.4 fl (7.5-11.1); MONO % 6.2 % (3.8-10.2); NEUT % 83.7 % (42.8-82.8); PLATELET COUNT 104 K/MM3 (134-434); RBC 3.66 M/mm3 (4.00-5.60); RDW 20.5 % (11.9-15.9)
[2021-01-07 23:26] LABS: WHITE BLOOD COUNT 42.2 K/mm3 (4.0-10.0)
[2021-01-07 23:43] LABS: CHLORIDE 98 mmol/L (98-107); SODIUM 132 mmol/L (136-145)
[2021-01-07 23:45] LABS: ALBUMIN 2.1 g/dl (3.4-5.0); CALCIUM 8.2 mg/dL (8.5-10.1)
[2021-01-07 23:46] LABS: ANION GAP 8 MMOL/L (8-16); BLOOD UREA NITROGEN 23.4 mg/dL (7-18); CO2 26 mmol/L (21-32); GLUCOSE,RANDOM 66 mg/dL (74-106); MAGNESIUM 2.1 mg/dL (1.8-2.4)
[2021-01-07 23:49] LABS: CREATININE 1.2 mg/dL (0.55-1.3); PHOSPHOROUS 3.8 mg/dL (2.5-4.9); SGOT/AST 60 U/L (15-37)
[2021-01-07 23:50] LABS: BILIRUBIN,TOTAL 0.6 mg/dL (0.2-1); TOT PROT 5.5 g/dl (6.4-8.2)
[2021-01-07 23:51] LABS: ALK PHOS 281 U/L (45-117)
[2021-01-07 23:59] LABS: SGPT/ALT 36 U/L (13-61)
[2021-01-08 00:30] LABS: ANISOCYTOSIS 1+; MACROCYTOSIS 1+; OVALOCYTE 1+; PLATELET ESTIMATE DECREASED
[2021-01-08] MEDS ORDERED: ASPIRIN 81 MG CHEWABLE TABLETS PO ONE (00:55)
[2021-01-08] MEDS ORDERED: MORPHINE SULFATE 2 MG/ML VIAL ONE (01:13)
[2021-01-08] MEDS ORDERED: ATORVASTATIN CA 40 MG TABLET (FP) ONE (01:13)
[2021-01-08] MEDS ORDERED: ASPIRIN 81 MG CHEWABLE TABLETS ONE (01:13)
[2021-01-08] MEDS ORDERED: ATORVASTATIN CA 40 MG TABLET (FP) PO ONE (01:15)
[2021-01-08] MEDS ORDERED: ALBUTEROL SO4 HFA INHALER IH PRN (01:18)
[2021-01-08] MEDS ORDERED: HEPARIN NA (PORCINE) 5,000 UNITS/ML 1ML VIAL IVPUSH PRN (03:07)
[2021-01-08 05:35] LABS: BASO % 0.4 % (0-2.0); EOS % 5.5 % (0-4.5); HEMATOCRIT 28.6 % (35.4-49); HEMOGLOBIN 9.2 GM/dL (11.7-16.9); LYMPH % 5.8 % (8-40); MCH 26.6 pg (25.7-33.7); MCHC 32.1 g/dl (32.0-35.9); MEAN CELL VOLUME 82.8 fl (80-96); MONO % 7.4 % (3.8-10.2); NEUT % 80.9 % (42.8-82.8); PLATELET COUNT 73 K/MM3 (134-434); RBC 3.45 M/mm3 (4.00-5.60); RDW 20.7 % (11.9-15.9)
[2021-01-08] MEDS ORDERED: HEPARIN INFUSION - 25,000 UNITS/500 ML INFUS.BAG IVPB ONE (05:42)
[2021-01-08 05:48] LABS: WHITE BLOOD COUNT 40.9 K/mm3 (4.0-10.0)
[2021-01-08] MEDS: HEPARIN - 25,000 UNIT in SODIUM CHLORIDE 495 ML IV SCH (05:48)
[2021-01-08] MEDS ORDERED: METHADONE HCL 10 MG TABLET PO SCH (06:00)
[2021-01-08 06:10] LABS: ALBUMIN 1.8 g/dl (3.4-5.0); ALK PHOS 239 U/L (45-117); ANION GAP 7 MMOL/L (8-16); BILIRUBIN,TOTAL 0.7 mg/dL (0.2-1); BLOOD UREA NITROGEN 24.2 mg/dL (7-18); CALCIUM 7.8 mg/dL (8.5-10.1); CHLORIDE 100 mmol/L (98-107); CO2 27 mmol/L (21-32); CREATININE 1.2 mg/dL (0.55-1.3); GLUCOSE,RANDOM 68 mg/dL (74-106); SGOT/AST 74 U/L (15-37); SGPT/ALT 33 U/L (13-61); SODIUM 133 mmol/L (136-145); TOT PROT 5.1 g/dl (6.4-8.2)
[2021-01-08] MEDS ORDERED: METHADONE 80 MG, METHADONE 20 MG PO SCH ×3 (06:30→06:45)
[2021-01-08] MEDS ORDERED: METHADONE HCL 40 MG DISPERSABLE TABLET ONE (06:41)
[2021-01-08] MEDS ORDERED: METHADONE HCL 10 MG TABLET ONE (06:41)
[2021-01-08] MEDS ORDERED: SODIUM ZIRCONIUM CYCLOSILICATE (LOKELMA) 5 GM PACKET PO ONE (07:18)
[2021-01-08] MEDS: INSULIN SLIDING SCALE (NOVOLOG) 1 VIAL SQ SCH ×4 (07:31→22:54)
[2021-01-08] MEDS: SODIUM CHLORIDE 1,000 ML IV SCH (07:35)
[2021-01-08] MEDS ORDERED: LISINOPRIL 20 MG TABLET PO SCH (10:00)
[2021-01-08] MEDS ORDERED: PANTOPRAZOLE 40 MG TABLET PO SCH (10:00)
[2021-01-08 11:29] LABS: ANISOCYTOSIS 1+; MACROCYTOSIS 1+; PLATELET ESTIMATE DECREASED
[2021-01-08] MEDS ORDERED: PANTOPRAZOLE 40 MG TABLET ONE (12:08)
[2021-01-08] MEDS ORDERED: ASPIRIN COATED 81 MG TABLET.EC ONE (12:08)
[2021-01-08] MEDS ORDERED: LISINOPRIL 20 MG TABLET ONE (12:09)
[2021-01-08] MEDS: ASPIRIN COATED 81 MG TABLET.EC PO SCH (12:15)
[2021-01-08] MEDS ORDERED: ONDANSETRON 4 MG TABLET PO PRN (13:59)
[2021-01-08] MEDS ORDERED: ALPRAZolam 1 MG TABLET PO PRN (13:59)
[2021-01-08 14:12] LABS: INR 1.61 (0.83-1.09); PROTHROMBIN TIME (PATIENT) 19.2 SEC (9.7-13.0)
[2021-01-08 14:15] LABS: ACTIVATED PTT 30.3 SECONDS (25.2-36.5)
[2021-01-08] MEDS ORDERED: HEPARIN NA (PORCINE) 5,000 UNITS/ML 1ML VIAL ONE (15:28)
[2021-01-08] MEDS ORDERED: HYDROmorphone HCL 2 MG TABLET ONE (17:53)
[2021-01-08] MEDS: HYDROmorphone HCL 2 MG TABLET PO PRN (18:18)
[2021-01-08] MEDS: ATORVASTATIN CA 20 MG TABLET (FP) PO SCH (23:00)
[2021-01-09] MEDS: HYDROmorphone HCL 2 MG TABLET PO PRN ×2 (00:19→10:32)
[2021-01-09] MEDS: HEPARIN NA (PORCINE) 5,000 UNITS/ML 1ML VIAL IVPUSH PRN ×3 (00:43→16:43)
[2021-01-09 01:20] LABS: EPI CELLS 12 /uL (0-25.1); HYALINE CASTS 3 /uL (0-3.1); PH,URINE 5.5 (5.0-8.0); URINE APPEARANCE CLEAR; URINE BACTERIA 7 /uL (0-1359); URINE BILIRUBIN NEGATIVE (NEGATIVE); URINE COLOR YELLOW; URINE GLUCOSE (UA) NEGATIVE (NEGATIVE); URINE KETONE NEGATIVE (NEGATIVE); URINE LEUK ESTERASE NEGATIVE (NEGATIVE); URINE NITRITE NEGATIVE (NEGATIVE); URINE PROTEIN 2+ (NEGATIVE); URINE RBC 16 /uL (0-23.9); URINE WBC 9 /uL (0-25.8)
[2021-01-09] MEDS ORDERED: METHADONE HCL 40 MG DISPERSABLE TABLET ONE (05:16)
[2021-01-09] MEDS ORDERED: METHADONE HCL 10 MG TABLET ONE (05:17)
[2021-01-09] MEDS: METHADONE 80 MG, METHADONE 20 MG PO SCH (05:18)
[2021-01-09] MEDS: INSULIN SLIDING SCALE (NOVOLOG) 1 VIAL SQ SCH ×4 (06:39→21:16)
[2021-01-09] MEDS: HEPARIN - 25,000 UNIT in SODIUM CHLORIDE 495 ML IV SCH ×3 (07:27→16:45)
[2021-01-09] MEDS: SODIUM CHLORIDE 1,000 ML IV SCH (07:28)
[2021-01-09 07:53] LABS: BASO % 0.3 % (0-2.0); EOS % 4.6 % (0-4.5); HEMATOCRIT 31.9 % (35.4-49); HEMOGLOBIN 9.9 GM/dL (11.7-16.9); LYMPH % 3.9 % (8-40); MCH 26.3 pg (25.7-33.7); MEAN CELL VOLUME 84.9 fl (80-96); MEAN PLT VOLUME 9.7 fl (7.5-11.1); MONO % 6.5 % (3.8-10.2); NEUT % 84.7 % (42.8-82.8); PLATELET COUNT 89 K/MM3 (134-434); RBC 3.75 M/mm3 (4.00-5.60); RDW 20.8 % (11.9-15.9)
[2021-01-09 08:14] LABS: ALBUMIN 2.1 g/dl (3.4-5.0); BLOOD UREA NITROGEN 21.8 mg/dL (7-18); CALCIUM 8.3 mg/dL (8.5-10.1); MAGNESIUM 2.4 mg/dL (1.8-2.4)
[2021-01-09 08:17] LABS: CREATININE 1.1 mg/dL (0.55-1.3); PHOSPHOROUS 3.4 mg/dL (2.5-4.9)
[2021-01-09 08:19] LABS: BILIRUBIN,TOTAL 0.6 mg/dL (0.2-1); TOT PROT 5.6 g/dl (6.4-8.2)
[2021-01-09 08:28] LABS: WHITE BLOOD COUNT 44.7 K/mm3 (4.0-10.0)
[2021-01-09 10:21] LABS: ANISOCYTOSIS 1+; MACROCYTOSIS 0; PLATELET ESTIMATE DECREASED
[2021-01-09] MEDS: ASPIRIN COATED 81 MG TABLET.EC PO SCH (10:31)
[2021-01-09] MEDS: DOCUSATE SODIUM 100 MG CAPSULE (FP) PO PRN (10:31)
[2021-01-09] MEDS: LISINOPRIL 10 MG TABLET PO SCH (10:32)
[2021-01-09] MEDS: PANTOPRAZOLE 40 MG TABLET PO SCH (10:32)
[2021-01-09] MEDS: ALPRAZolam 1 MG TABLET PO PRN ×2 (14:38→23:15)
[2021-01-09] MEDS: ATORVASTATIN CA 20 MG TABLET (FP) PO SCH (21:16)
[2021-01-09] MEDS ORDERED: HEPARIN NA (PORCINE) 5,000 UNITS/ML 1ML VIAL IVPUSH PRN (23:48)
[2021-01-10] MEDS ORDERED: METHADONE HCL 10 MG TABLET ONE (05:46)
[2021-01-10] MEDS ORDERED: METHADONE HCL 40 MG DISPERSABLE TABLET ONE (05:46)
[2021-01-10] MEDS: METHADONE 80 MG, METHADONE 20 MG PO SCH (05:52)
[2021-01-10] MEDS: INSULIN SLIDING SCALE (NOVOLOG) 1 VIAL SQ SCH ×4 (06:33→21:10)
[2021-01-10 07:43] LABS: HEMATOCRIT 29.9 % (35.4-49); HEMOGLOBIN 9.3 GM/dL (11.7-16.9); MCH 26.5 pg (25.7-33.7); MEAN CELL VOLUME 85.4 fl (80-96); MEAN PLT VOLUME 9.5 fl (7.5-11.1); PLATELET COUNT 100 K/MM3 (134-434)
[2021-01-10 08:15] LABS: WHITE BLOOD COUNT 45.4 K/mm3 (4.0-10.0)
[2021-01-10] MEDS: PANTOPRAZOLE 40 MG TABLET PO SCH (09:12)
[2021-01-10] MEDS: ASPIRIN COATED 81 MG TABLET.EC PO SCH (09:12)
[2021-01-10] MEDS: ALPRAZolam 1 MG TABLET PO PRN ×2 (09:12→21:09)
[2021-01-10] MEDS: LISINOPRIL 10 MG TABLET PO SCH (09:13)
[2021-01-10] MEDS: DOCUSATE SODIUM 100 MG CAPSULE (FP) PO PRN (13:35)
[2021-01-10] MEDS: ATORVASTATIN CA 20 MG TABLET (FP) PO SCH (21:09)
[2021-01-10] MEDS ORDERED: MELATONIN 5 MG TABLETS PO ONE (23:55)
[2021-01-11] MEDS ORDERED: METHADONE HCL 40 MG DISPERSABLE TABLET ONE (06:05)
[2021-01-11] MEDS ORDERED: METHADONE HCL 10 MG TABLET ONE (06:05)
[2021-01-11] MEDS: INSULIN SLIDING SCALE (NOVOLOG) 1 VIAL SQ SCH ×4 (06:20→21:57)
[2021-01-11] MEDS: METHADONE 80 MG, METHADONE 20 MG PO SCH (06:22)
[2021-01-11] MEDS: ALPRAZolam 1 MG TABLET PO PRN ×3 (06:22→21:52)
[2021-01-11 07:22] LABS: BASO % 0.5 % (0-2.0); EOS % 5.2 % (0-4.5); HEMOGLOBIN 8.8 GM/dL (11.7-16.9); MCH 26.5 pg (25.7-33.7); MCHC 31.4 g/dl (32.0-35.9); MEAN CELL VOLUME 84.5 fl (80-96); MEAN PLT VOLUME 9.1 fl (7.5-11.1); MONO % 4.2 % (3.8-10.2); NEUT % 86.1 % (42.8-82.8); PLATELET COUNT 74 K/MM3 (134-434); RBC 3.32 M/mm3 (4.00-5.60); RDW 20.5 % (11.9-15.9)
[2021-01-11 08:04] LABS: CREATININE 1.1 mg/dL (0.55-1.3)
[2021-01-11 08:05] LABS: ALBUMIN 1.6 g/dl (3.4-5.0)
[2021-01-11 08:10] LABS: BLOOD UREA NITROGEN 26.4 mg/dL (7-18)
[2021-01-11 08:11] LABS: CALCIUM 7.9 mg/dL (8.5-10.1)
[2021-01-11 08:12] LABS: MAGNESIUM 2.3 mg/dL (1.8-2.4)
[2021-01-11 08:29] LABS: WHITE BLOOD COUNT 46.2 K/mm3 (4.0-10.0)
[2021-01-11] MEDS: PANTOPRAZOLE 40 MG TABLET PO SCH (09:24)
[2021-01-11] MEDS: ASPIRIN COATED 81 MG TABLET.EC PO SCH (09:24)
[2021-01-11] MEDS: LISINOPRIL 10 MG TABLET PO SCH (09:25)
[2021-01-11 12:41] LABS: ANISOCYTOSIS 0; MACROCYTOSIS 0; OVALOCYTE 2+; PLATELET ESTIMATE DECREASED; TEAR DROP CELLS 1+
[2021-01-11] MEDS: ATORVASTATIN CA 20 MG TABLET (FP) PO SCH (21:52)
[2021-01-12] MEDS ORDERED: METHADONE HCL 10 MG TABLET ONE (05:20)
[2021-01-12] MEDS ORDERED: METHADONE HCL 40 MG DISPERSABLE TABLET ONE (05:20)
[2021-01-12] MEDS: METHADONE 80 MG, METHADONE 20 MG PO SCH (05:22)
[2021-01-12] MEDS: ALPRAZolam 1 MG TABLET PO PRN ×3 (05:44→21:27)
[2021-01-12] MEDS: INSULIN SLIDING SCALE (NOVOLOG) 1 VIAL SQ SCH ×4 (06:38→21:48)
[2021-01-12 06:40] LABS: BASO % 0.5 % (0-2.0); EOS % 6.3 % (0-4.5); HEMATOCRIT 31.5 % (35.4-49); HEMOGLOBIN 9.8 GM/dL (11.7-16.9); LYMPH % 5.2 % (8-40); MCH 26.5 pg (25.7-33.7); MCHC 31.2 g/dl (32.0-35.9); MEAN CELL VOLUME 84.7 fl (80-96); MEAN PLT VOLUME 9.6 fl (7.5-11.1); MONO % 4.6 % (3.8-10.2); NEUT % 83.4 % (42.8-82.8); PLATELET COUNT 65 K/MM3 (134-434); RBC 3.71 M/mm3 (4.00-5.60); RDW 20.1 % (11.9-15.9)
[2021-01-12 06:49] LABS: WHITE BLOOD COUNT 52.3 K/mm3 (4.0-10.0)
[2021-01-12 06:59] LABS: ALBUMIN 1.7 g/dl (3.4-5.0); BLOOD UREA NITROGEN 32.3 mg/dL (7-18); CALCIUM 8.2 mg/dL (8.5-10.1); MAGNESIUM 2.4 mg/dL (1.8-2.4)
[2021-01-12 07:02] LABS: CREATININE 1.3 mg/dL (0.55-1.3)
[2021-01-12 07:04] LABS: BILIRUBIN,TOTAL 0.6 mg/dL (0.2-1); TOT PROT 5.7 g/dl (6.4-8.2)
[2021-01-12] MEDS: PANTOPRAZOLE 40 MG TABLET PO SCH (09:10)
[2021-01-12] MEDS: LISINOPRIL 10 MG TABLET PO SCH (09:10)
[2021-01-12] MEDS: ASPIRIN COATED 81 MG TABLET.EC PO SCH (09:10)
[2021-01-12 10:07] LABS: ANISOCYTOSIS 0; MACROCYTOSIS 0; PLATELET ESTIMATE DECREASED
[2021-01-12] MEDS: ATORVASTATIN CA 20 MG TABLET (FP) PO SCH (21:27)
[2021-01-12] MEDS ORDERED: METOPROLOL TARTRATE 25 MG TABLET (FP) PO ONE (21:59)
[2021-01-12] MEDS ORDERED: METOPROLOL TARTRATE 5 MG/5 ML VIAL IVPUSH ONE (21:59)
[2021-01-13] MEDS: ALPRAZolam 1 MG TABLET PO PRN ×3 (00:09→22:52)
[2021-01-13] MEDS ORDERED: METOPROLOL TARTRATE 5 MG/5 ML VIAL IVPUSH ONE (05:58)
[2021-01-13] MEDS ORDERED: METHADONE HCL 40 MG DISPERSABLE TABLET ONE (06:18)
[2021-01-13] MEDS ORDERED: METHADONE HCL 10 MG TABLET ONE (06:19)
[2021-01-13] MEDS: METHADONE 80 MG, METHADONE 20 MG PO SCH (06:24)
[2021-01-13] MEDS: METOPROLOL TARTRATE 25 MG TABLET (FP) PO ONE ×2 (06:26→07:53)
[2021-01-13] MEDS ORDERED: SODIUM CHLORIDE 250 ML IV STA (06:37)
[2021-01-13] MEDS: INSULIN SLIDING SCALE (NOVOLOG) 1 VIAL SQ SCH ×4 (06:40→21:00)
[2021-01-13 07:16] LABS: BASO % 0.7 % (0-2.0); EOS % 7.6 % (0-4.5); HEMATOCRIT 32.2 % (35.4-49); HEMOGLOBIN 9.6 GM/dL (11.7-16.9); LYMPH % 7.9 % (8-40); MCH 25.9 pg (25.7-33.7); MEAN CELL VOLUME 86.3 fl (80-96); MONO % 5.6 % (3.8-10.2); NEUT % 78.2 % (42.8-82.8); PLATELET COUNT 52 K/MM3 (134-434); RBC 3.73 M/mm3 (4.00-5.60); RDW 20.5 % (11.9-15.9)
[2021-01-13 07:27] LABS: WHITE BLOOD COUNT 51.1 K/mm3 (4.0-10.0)
[2021-01-13 07:42] LABS: ALBUMIN 1.8 g/dl (3.4-5.0); CALCIUM 8.2 mg/dL (8.5-10.1); MAGNESIUM 2.4 mg/dL (1.8-2.4)
[2021-01-13 07:43] LABS: BLOOD UREA NITROGEN 37.2 mg/dL (7-18)
[2021-01-13 07:45] LABS: CREATININE 1.2 mg/dL (0.55-1.3)
[2021-01-13 07:47] LABS: BILIRUBIN,TOTAL 0.7 mg/dL (0.2-1); TOT PROT 5.8 g/dl (6.4-8.2)
[2021-01-13 09:46] LABS: ANISOCYTOSIS 1+; MACROCYTOSIS 0; PLATELET ESTIMATE DECREASED
[2021-01-13] MEDS: LISINOPRIL 10 MG TABLET PO SCH (10:32)
[2021-01-13] MEDS: PANTOPRAZOLE 40 MG TABLET PO SCH (10:36)
[2021-01-13] MEDS: ASPIRIN COATED 81 MG TABLET.EC PO SCH (10:37)
[2021-01-13] MEDS ORDERED: METOPROLOL TARTRATE 5 MG/5 ML VIAL IVPUSH PRN (12:04)
[2021-01-13] MEDS ORDERED: SODIUM CHLORIDE 500 ML IV STA (12:27)
[2021-01-13] MEDS: METOPROLOL TARTRATE 25 MG TABLET (FP) PO SCH ×2 (15:24→22:36)
[2021-01-13] MEDS: ATORVASTATIN CA 20 MG TABLET (FP) PO SCH (22:41)
[2021-01-13] MEDS ORDERED: ALBUTEROL SO4 HFA INHALER IH PRN (23:49)
[2021-01-13] MEDS ORDERED: ONDANSETRON 4 MG TABLET PO PRN (23:49)
[2021-01-13] MEDS ORDERED: DOCUSATE SODIUM 100 MG CAPSULE (FP) PO PRN (23:49)
[2021-01-14] MEDS ORDERED: METHADONE HCL 10 MG TABLET ONE (06:01)
[2021-01-14] MEDS ORDERED: METHADONE HCL 40 MG DISPERSABLE TABLET ONE (06:01)
[2021-01-14] MEDS: METHADONE 80 MG, METHADONE 20 MG PO SCH (06:04)
[2021-01-14] MEDS: INSULIN SLIDING SCALE (NOVOLOG) 1 VIAL SQ SCH ×4 (06:11→21:36)
[2021-01-14 08:45] LABS: HEMATOCRIT 29.5 % (35.4-49); HEMOGLOBIN 9.2 GM/dL (11.7-16.9); MCH 26.2 pg (25.7-33.7); MEAN CELL VOLUME 84.6 fl (80-96); MEAN PLT VOLUME 10.3 fl (7.5-11.1); RBC 3.49 M/mm3 (4.00-5.60); RDW 20.6 % (11.9-15.9)
[2021-01-14 08:55] LABS: PLATELET COUNT 35 K/MM3 (134-434)
[2021-01-14 09:30] LABS: CALCIUM 7.9 mg/dL (8.5-10.1)
[2021-01-14 09:31] LABS: ALBUMIN 1.7 g/dl (3.4-5.0); BLOOD UREA NITROGEN 45.8 mg/dL (7-18)
[2021-01-14 09:35] LABS: BILIRUBIN,TOTAL 0.6 mg/dL (0.2-1); CREATININE 1.2 mg/dL (0.55-1.3); TOT PROT 5.4 g/dl (6.4-8.2)
[2021-01-14] MEDS: PANTOPRAZOLE 40 MG TABLET PO SCH (11:01)
[2021-01-14] MEDS: ASPIRIN COATED 81 MG TABLET.EC PO SCH (11:02)
[2021-01-14] MEDS: METOPROLOL TARTRATE 25 MG TABLET (FP) PO SCH ×2 (12:12→21:36)
[2021-01-14] MEDS: LISINOPRIL 20 MG TABLET PO SCH (12:13)
[2021-01-14] MEDS: ALPRAZolam 1 MG TABLET PO PRN (18:20)
[2021-01-14] MEDS: ATORVASTATIN CA 20 MG TABLET (FP) PO SCH (21:36)
[2021-01-14] MEDS ORDERED: MELATONIN 5 MG TABLETS PO ONE (23:58)
[2021-01-15] MEDS ORDERED: METHADONE HCL 10 MG TABLET ONE (06:35)
[2021-01-15] MEDS ORDERED: METHADONE HCL 40 MG DISPERSABLE TABLET ONE (06:35)
[2021-01-15] MEDS: METHADONE 80 MG, METHADONE 20 MG PO SCH (06:50)
[2021-01-15] MEDS: ALPRAZolam 1 MG TABLET PO PRN ×2 (06:52→10:25)
[2021-01-15] MEDS: INSULIN SLIDING SCALE (NOVOLOG) 1 VIAL SQ SCH ×4 (06:57→22:43)
[2021-01-15] MEDS ORDERED: HYDROmorphone HCL 2 MG TABLET PO PRN (10:25)
[2021-01-15] MEDS: ASPIRIN COATED 81 MG TABLET.EC PO SCH (10:25)
[2021-01-15] MEDS: METOPROLOL TARTRATE 25 MG TABLET (FP) PO SCH ×2 (10:25→22:29)
[2021-01-15] MEDS: PANTOPRAZOLE 40 MG TABLET PO SCH (10:25)
[2021-01-15] MEDS: LISINOPRIL 20 MG TABLET PO SCH (10:25)
[2021-01-15] MEDS: ATORVASTATIN CA 20 MG TABLET (FP) PO SCH (22:29)
[2021-01-16] MEDS: ALPRAZolam 1 MG TABLET PO PRN (00:14)
[2021-01-16] MEDS ORDERED: METHADONE HCL 10 MG TABLET ONE (06:44)
[2021-01-16] MEDS ORDERED: METHADONE HCL 40 MG DISPERSABLE TABLET ONE (06:45)
[2021-01-16] MEDS: METHADONE 80 MG, METHADONE 20 MG PO SCH (06:48)
[2021-01-16] MEDS: INSULIN SLIDING SCALE (NOVOLOG) 1 VIAL SQ SCH ×4 (07:07→21:53)
[2021-01-16 08:28] LABS: BASO % 0.4 % (0-2.0); EOS % 3.8 % (0-4.5); HEMATOCRIT 33.5 % (35.4-49); HEMOGLOBIN 10.2 GM/dL (11.7-16.9); LYMPH % 3.7 % (8-40); MCH 26.5 pg (25.7-33.7); MCHC 30.5 g/dl (32.0-35.9); MEAN CELL VOLUME 86.8 fl (80-96); MEAN PLT VOLUME 8.6 fl (7.5-11.1); MONO % 5.5 % (3.8-10.2); NEUT % 86.6 % (42.8-82.8); RBC 3.86 M/mm3 (4.00-5.60); RDW 20.8 % (11.9-15.9)
[2021-01-16 09:06] LABS: WHITE BLOOD COUNT 52.5 K/mm3 (4.0-10.0)
[2021-01-16 09:07] LABS: PLATELET COUNT 24 K/MM3 (134-434)
[2021-01-16] MEDS ORDERED: PT OWN MED DRAWER 7, Y5N ONE (09:12)
[2021-01-16] MEDS: PANTOPRAZOLE 40 MG TABLET PO SCH (09:25)
[2021-01-16] MEDS: METOPROLOL TARTRATE 25 MG TABLET (FP) PO SCH ×2 (09:25→21:53)
[2021-01-16] MEDS: ASPIRIN COATED 81 MG TABLET.EC PO SCH (09:26)
[2021-01-16] MEDS: LISINOPRIL 20 MG TABLET PO SCH (09:26)
[2021-01-16 10:36] LABS: ANISOCYTOSIS 3+; MACROCYTOSIS 2+; PLATELET ESTIMATE DECREASED
[2021-01-16] MEDS ORDERED: ALBUTEROL SO4 2.5/IPRATROPIUM 0.5 INH SOL 3 ML VIAL.NEB. NEB PRN (12:34)
[2021-01-16] MEDS ORDERED: FUROSEMIDE 40 MG/4 ML INJECTABLE VIAL IVPUSH ONE (12:34)
[2021-01-16] MEDS ORDERED: morphine CARPU-JECT 2 MG/1 ML DISP.SYRIN SQ ONE (12:35)
[2021-01-16] MEDS ORDERED: MORPHINE SULFATE 2 MG/ML VIAL SQ ONE (13:00)
[2021-01-16] MEDS ORDERED: MORPHINE SULFATE 2 MG/ML VIAL IVPUSH PRN (15:06)
[2021-01-16] MEDS ORDERED: LORazepam 2 MG/ML SDV VIAL IVPUSH PRN (18:22)
[2021-01-16] MEDS ORDERED: ACETAMINOPHEN 650 MG SUPP.RECT PR PRN (18:25)
[2021-01-16] MEDS ORDERED: MORPHINE SULFATE/0.9% NACL/PF 100 MG/100 ML BAG IVPB SCH (18:30)
[2021-01-16 18:32] VITALS: BMI 25.9
[2021-01-16] MEDS ORDERED: PCA PUMP NR ONE (18:46)
[2021-01-16] MEDS: ATORVASTATIN CA 20 MG TABLET (FP) PO SCH (21:51)
[2021-01-16 22:59] VITALS: BP 56/42; PULSE 103; TEMP 98.7
[2021-01-17] MEDS ORDERED: PCA PUMP NR ONE (04:26)
[2021-01-17] MEDS ORDERED: ASCORBIC ACID 500 MG TABLET (FP) PO SCH (10:00)
== END 2021-01-17 02:08 | disposition expired ==
LOC: JER 16:40 → JERBED 18:57 → OBSVTOIN 18:57 → J4S 01-08 21:25 → J6S 01-13 23:55
PROVIDERS: ADMIT Internal Medicine; ATTEND Nurse Practitioner Family
DX: I21.4 Non-ST elevation (NSTEMI) myocardial infarction (principal); C34.90 Malignant neoplasm of unspecified part of unspecified bronchus or lung; C78.7 Secondary malignant neoplasm of liver and intrahepatic bile duct; C64.9 Malignant neoplasm of unspecified kidney, except renal pelvis; F11.20 Opioid dependence, uncomplicated; E87.1 Hypo-osmolality and hyponatremia; I50.22 Chronic systolic (congestive) heart failure; N17.9 Acute kidney failure, unspecified; I11.0 Hypertensive heart disease with heart failure; J44.9 Chronic obstructive pulmonary disease, unspecified; C14.0 Malignant neoplasm of pharynx, unspecified; G89.3 Neoplasm related pain (acute) (chronic); E11.9 Type 2 diabetes mellitus without complications; D69.6 Thrombocytopenia, unspecified; L89.151 Pressure ulcer of sacral region, stage 1; R13.10 Dysphagia, unspecified; R54 Age-related physical debility; E78.5 Hyperlipidemia, unspecified; Z66 Do not resuscitate; R00.0 Tachycardia, unspecified; Z95.2 Presence of prosthetic heart valve
CPT/HCPCS: 36415; 71045-TC-FY; 74230-TC-FY; 76705-TC; 80053; 81003; 82550; 82553; 82962; 83735; 84100; 84484; 85025; 85027; 85610; 85730; 87040; 87086; 92611-GN; 93005; 93010; 94640; 97116-GP; 97161-GP; 99285-25; C9803; J1644; U0003; U0005